=== PATIENT | male | born 1945 | race Two or more races ===

== ENCOUNTER 2017-03-07 07:59 | Inpatient (IN) | payer MEDICARE, OTHER ==
[~2017-03-07] VITALS: Ht 172.7 cm; Wt 67.1 kg
[~2017-03-07 07:59] MED LIST: ACET325T9 PO; ACET325T9 RC; ACID1TAB14 PO; ALPR0.254 PO; ASPI-482 PO; ASPI81TA44 PO; BISA10SU55 RC; CARB1TAB4 PO; CITA20TA5 PO; COLE1TAB PO; GUAI-297 PO; INSU100V10 IJ; INSU100V10 SQ; INSU100V13 SQ; LACT1CAP2 PO; LISI-334 PO; MECL25TA3 PO; NA P133E2 RC; NPH,100V4 SQ; SULF1TAB3 PO
[2017-03-07] MEDS ORDERED: IV NORMAL SALINE 1000ML BAG 1,000 ML IV ONE ×3 (08:15→10:00)
--- NOTE | 2017-03-07 08:36 | RAD ---
Indication: Fever and weakness. Hyperglycemia and vomiting. Technique: Upright portable chest radiograph was obtained. Comparison is from January 19, 2016. Findings: The lungs are clear. The cardiopulmonary silhouette is within normal limits. The bony structures are intact. Leads overlie the patient. Impression: No active pulmonary disease.
[2017-03-07 08:38] LABS: BASO % 0 % (0-3); EOS % 0 % (0-3); HEMATOCRIT 37.3 % (39.0-53.0); HEMOGLOBIN 12.1 g/dL (13.0-17.5); LYMPH # 0.6 x10^3/uL (1.0-4.8); LYMPH % 7 % (24-48); MEAN CORPUSCULAR HEMOGLOBIN 28 pg (25-35); MEAN CORPUSCULAR HGB CONC 32 g/dL (31-37); MEAN CORPUSCULAR VOLUME 88 fL (79-100); MONO % 11 % (0-9); NEUT % 82 % (31-73); PLATELET COUNT 397 x10^3/uL (140-400); RED BLOOD COUNT 4.26 x10^6/uL (4.30-5.70); RED CELL DISTRIBUTION WIDTH 15.6 % (11.5-14.5); WHITE BLOOD COUNT 8.2 x10^3/uL (4.0-11.0)
--- NOTE | 2017-03-07 08:43 | PHYS DOC ---
Past Medical History Past Medical History: Anxiety, Depression, Diabetes-Type I, Diabetes-Type II, Hypertension, UTI, Other Additional Past Medical Histor: encephalopathy, weakness, frequent falls Past Surgical History: No Surgical History Alcohol Use: None Drug Use: None Adult General Chief Complaint Chief Complaint: HYPERGLYCEMIA HPI HPI Patient is a 72 year old male brought in by EMS for evaluation of increased weakness fatigue along with hyperglycemia and hypotension. Patient is usually hypertensive per halfway staff that he has been 80 systolic and has been decompensating over the past 3-4 days. Patient's blood sugar was undetectable this morning but was given 14 units of NovoLog and now his blood sugar is 361 per EMS. Patient denies any definitive areas of pain and he denies any shortness of breath diaphoresis or diarrhea. He says that he has some nonbilious nonbloody vomiting. He is in no obvious distress with improved vital signs his blood pressure is now 110 systolic with a heart rate of 100. Of note he just started taking Cipro for prostatitis. Review of Systems Review of Systems Constitutional: Denies fever or chills [] Eyes: Denies change in visual acuity, redness, or eye pain [] HENT: Denies nasal congestion or sore throat [] Respiratory: Denies cough or shortness of breath [] Cardiovascular: No additional information not addressed in HPI [] GI: Denies abdominal pain. + nausea, vomiting. No bloody stools or diarrhea [] : Denies dysuria or hematuria [] Musculoskeletal: Denies back pain or joint pain [] Integument: Denies rash or skin lesions [] Neurologic: Denies headache, focal weakness or sensory changes [] Current Medications Current Medications Current Medications Medications (Trade) Dose Ordered Sig/Bryson Start Time Stop Time Status Last Admin Dose Admin Ceftriaxone Sodium 2 gm/ Sodium Chloride 100 ml @ 200 mls/hr 1X STAT 03/07/17 09:07 03/07/17 09:36 DC 03/07/17 09:55 200 MLS/HR Sodium Chloride 1,000 ml @ 1,000 mls/hr 1X ONCE 03/07/17 08:15 03/07/17 09:14 DC 03/07/17 09:01 1,000 MLS/HR Allergies Allergies Allergies Coded Allergies Type Severity Reaction Last Updated Verified Penicillins Allergy Severe 01/23/16 Yes levofloxacin Allergy Intermediate 01/23/16 Yes Physical Exam Physical Exam Constitutional: Well developed, well nourished, no acute distress, non-toxic appearance. [] HENT: Normocephalic, atraumatic, bilateral external ears normal, oropharynx moist, no oral exudates, nose normal. [] Eyes: PERRLA, EOMI, conjunctiva normal, no discharge. [] Neck: Normal range of motion, no tenderness, supple, no stridor. [] Cardiovascular:Heart rate regular rhythm, no murmur [] Lungs & Thorax: Bilateral breath sounds clear to auscultation [] Abdomen: Bowel sounds normal, soft, no tenderness, no masses, no pulsatile masses. [] Skin: Warm, dry, no erythema, no rash. [] Back: No tenderness, no CVA tenderness. [] Extremities: No tenderness, no cyanosis, no clubbing, ROM intact, no edema. [] Neurologic: Alert and oriented X 3, normal motor function, normal sensory function, no focal deficits noted. [] Current Patient Data Vital Signs Vital Signs Date Time Temp Pulse Resp B/P (MAP) Pulse Ox O2 Delivery O2 Flow Rate FiO2 03/07/17 09:00 88 15 115/58 (77) 98 03/07/17 08:08 98.2 Room Air 98.2 Lab Values Laboratory Tests Test 03/07/17 08:07 03/07/17 08:10 Glucose (Fingerstick) 422 mg/dL (70-99) H White Blood Count 8.2 x10^3/uL (4.0-11.0) Red Blood Count 4.26 x10^6/uL (4.30-5.70) L Hemoglobin 12.1 g/dL (13.0-17.5) L Hematocrit 37.3 % (39.0-53.0) L Mean Corpuscular Volume 88 fL (79-100) Mean Corpuscular Hemoglobin 28 pg (25-35) Mean Corpuscular Hemoglobin Concent 32 g/dL (31-37) Red Cell Distribution Width 15.6 % (11.5-14.5) H Platelet Count 397 x10^3/uL (140-400) Neutrophils (%) (Auto) 82 % (31-73) H Lymphocytes (%) (Auto) 7 % (24-48) L Monocytes (%) (Auto) 11 % (0-9) H Eosinophils (%) (Auto) 0 % (0-3) Basophils (%) (Auto) 0 % (0-3) Neutrophils # (Auto) 6.7 x10^3uL (1.8-7.7) Lymphocytes # (Auto) 0.6 x10^3/uL (1.0-4.8) L Monocytes # (Auto) 0.9 x10^3/uL (0.0-1.1) Eosinophils # (Auto) 0.0 x10^3/uL (0.0-0.7) Basophils # (Auto) 0.0 x10^3/uL (0.0-0.2) Prothrombin Time 13.5 SEC (11.7-14.0) Prothrombin Time INR 1.1 (0.8-1.1) PTT 28 SEC (24-38) Lactic Acid Level 3.7 mmol/L (0.4-2.0) H Troponin I Quantitative < 0.017 ng/mL (0.000-0.055) OX-Fjn-A-Type Natriuretic Peptide 522 pg/mL (0-124) H Thyroid Stimulating Hormone (TSH) 2.612 uIU/mL (0.358-3.74) Laboratory Tests 03/07/17 08:10 EKG EKG Sinus rhythm at 99 beats per minutes with normal axis no obvious ST elevation or depression with normal T waves. Radiology/Procedures Radiology/Procedures Indication: Fever and weakness. Hyperglycemia and vomiting. Technique: Upright portable chest radiograph was obtained. Comparison is from January 19, 2016. Findings: The lungs are clear. The cardiopulmonary silhouette is within normal limits. The bony structures are intact. Leads overlie the patient. Impression: No active pulmonary disease. DICTATED and SIGNED BY: TERESA ARBOLEDA MD DATE: 03/07/17 0833 Course & Med Decision Making Course & Med Decision Making Patient with nonspecific hypotension hyperglycemia likely related to dehydration. We'll check labs and EKG treat symptoms and then reassess. Patient with acute renal failure likely from dehydration and hyperglycemia. Patient's blood pressure improved with IV fluids here. His potassium is elevated but there is no signs of cardiac involvement as his QRS and T waves appear normal on the monitor. Patient will likely improve with IV fluids and insulin. Spoke to Dr. Lee and he said that he is a brittle diabetic so do not start a insulin drip and just use insulin boluses for now. Patient admitted in guarded condition to telemetry floor. Dragon Disclaimer Dragon Disclaimer This electronic medical record was generated, in whole or in part, using a voice recognition dictation system. Departure Departure Impression: Primary Impression: ARF (acute renal failure) Additional Impressions: Hyperkalemia Lactic acid acidosis Hyperglycemia Hypotension Disposition: ADMITTED INPATIENT Admitting Physician: Modesto Parker Condition: IMPROVED Referrals: MODESTO PARKER MD (PCP) Problem Qualifiers Primary Impression: ARF (acute renal failure) Acute renal failure type: unspecified Qualified Codes: N17.9 - Acute kidney failure, unspecified KAM SANDHU DO March 07, 2017 08:43
[2017-03-07 08:53] LABS: INR 1.1 (0.8-1.1); PROTHROMBIN TIME PATIENT 13.5 SEC (11.7-14.0)
[2017-03-07 09:42] LABS: ALBUMIN 4.1 g/dL (3.4-5.0); ALBUMIN/GLOBULIN RATIO 0.9 (1.0-1.7); CREATININE 2.7 mg/dL (0.7-1.3); GFR 23.3; TOTAL BILIRUBIN 0.6 mg/dL (0.2-1.0); TOTAL PROTEIN 8.8 g/dL (6.4-8.2)
[2017-03-07 09:43] LABS: POTASSIUM 6.1 mmol/L (3.5-5.1)
--- NOTE | 2017-03-07 09:58 | ACF ---
Admission Forms Criteria DIABETES Clinical Indications for Admission to Inpatient Care (Place 'X' for any and all applicable criteria): Admission is indicated by presence of ALL (if I & II) or ANY ONE (if III or IV) of the following (1)(2)(3)(4): [ ]I. Diabetes is uncontrolled as indicated by ANY ONE of the following: [ ]a) Diabetic ketoacidosis as indicated by ALL of the following (8): [ ]i) Hyperglycemia (eg, plasma glucose greater than 200 mg/ dL (11.1 mmol/L)) [ ]ii) Acidosis (eg, arterial pH less than 7.30, serum bicarbonate level less than 15 mEq/L (mmol/L)) [ ]iii) Moderate ketonuria or ketonemia [ ]b) Hyperglycemic hyperosmolar state as indicated by ALL of the following(9)(10): [ ]i) Neurologic dysfunction (eg, stupor, coma, hemiparesis , seizure)(13) [ ]ii) Plasma glucose greater than 600 mg/dL (33.3 mmol/L) [ ]iii) Serum osmolality greater than 320 mOsm/kg (mmol/kg) [ ]c) Severe signs or symptoms secondary to hyperglycemia indicated by ANY ONE of the following: [ ]i) Altered mental status(10) [ ]ii) Significant hypovolemia or dehydration [ ]iii) Intractable nausea or vomiting [ ]iv) Unexplained fever or severe infection [ ]v) Severe electrolyte abnormality (eg, hypokalemia, hyperkalemia, hypernatremia) [ ]II. Management at other levels of care (Also use Diabetes: Observation Care as appropriate) is not feasible because of ANY ONE of the following: [ ]a) Condition was not adequately corrected with treatment at other levels of care. [ ]b) Treatment at other levels of care is not appropriate because of condition severity (eg, hyperosmolar coma). [ ]III. Contraindications and/or Inappropriate clinical situations for Observational Care in patients with Diabetes, when ANY ONE of the following is required: [ ]a) Patient require specific diagnostic workup or therapeutic intervention 22 [ ]b) Patient with abnormal vital signs or altered mental status 23 [ ]IV. General contraindications and/or Inappropriate clinical situations for Observational Care in patients with Diabetes, when ANY ONE of the following is required: [ ]a) Prediction of prolongation of LOS based on ANY ONE of the following may be considered as a contraindication for observational care 2, 3, 4, 5, 6, 7, 8, 9, 10, 11 [ ]i) Age > 65 yrs. [ ]ii) Patient arriving by ambulance [ ]iii) Patient with high acuity [ ]iv) Patient requiring vital sign monitoring [ ]v) Patient on IV medication [ ]b) Systolic blood pressures 180mmHg 3,12 [ ]c) Patient with altered mental status including delirium and other alteration of consciousness, (3) [ ]d) Patient whose discharge disposition will be to a detention home or rehabilitation home should not be managed in Emergency Department Observation Unit. CMS rule requires 3 days hospital stay before such placement.3,13 [ ]e) Patient with failure to thrive due to broad array of etiologies 3,16,17 [ ]f) Inability to ambulate 3,14 Extended stay beyond goal length of stay may be needed for(3)(20): [ ]a) Treatment of precipitating causes [ ]b) Development of hypoglycemia [ ]c) Complications of treatment [ ]d) Complications of decompensated diabetes (eg, acute gastric dilatation, persistent metabolic or neurologic derangement) [ ]e) Active Comorbidities [ ]f) Older patients( 65 years or older) The original [employer] content created by [employer] has been revised. The portions of the content which have been revised are identified through the use of italic text or in bold,and [email or web address] has neither reviewed nor approved the modified material. All other unmodified content is copyright [employer]. Please see references footnoted in the original [employer] edition 2016 DANIELE GUERRA March 07, 2017 09:58
[2017-03-07] MEDS ORDERED: ONDANSETRON PF 4 MG/2 ML VIAL. IV PRN (10:00)
[2017-03-07] MEDS ORDERED: INSULIN REGULAR 100 UNIT/ML 10ML VIAL. IV PRN (10:15)
[2017-03-07 10:58] VITALS: BP 146/61
--- NOTE | 2017-03-07 12:44 | PDOC ---
OBJECTIVE Vital Signs Vital Signs Date Time Temp Pulse Resp B/P (MAP) Pulse Ox O2 Delivery O2 Flow Rate FiO2 03/07/17 10:58 98.0 96 20 146/61 (89) 98 Room Air 98.0 03/07/17 09:30 88 18 148/65 (92) 98 03/07/17 09:00 88 15 115/58 (77) 98 03/07/17 08:30 94 17 110/62 (78) 100 03/07/17 08:08 98.2 99 21 119/67 (84) 100 Room Air 98.2 ASSESSMENT/PLAN Assessment/Plan 524451 H&P dictated Problems: COMMENT Lab Laboratory Tests Test 03/07/17 08:07 03/07/17 08:10 03/07/17 09:20 03/07/17 10:12 Glucose (Fingerstick) 422 mg/dL (70-99) 319 mg/dL (70-99) White Blood Count 8.2 x10^3/uL (4.0-11.0) Red Blood Count 4.26 x10^6/uL (4.30-5.70) Hemoglobin 12.1 g/dL (13.0-17.5) Hematocrit 37.3 % (39.0-53.0) Mean Corpuscular Volume 88 fL (79-100) Mean Corpuscular Hemoglobin 28 pg (25-35) Mean Corpuscular Hemoglobin Concent 32 g/dL (31-37) Red Cell Distribution Width 15.6 % (11.5-14.5) Platelet Count 397 x10^3/uL (140-400) Neutrophils (%) (Auto) 82 % (31-73) Lymphocytes (%) (Auto) 7 % (24-48) Monocytes (%) (Auto) 11 % (0-9) Eosinophils (%) (Auto) 0 % (0-3) Basophils (%) (Auto) 0 % (0-3) Neutrophils # (Auto) 6.7 x10^3uL (1.8-7.7) Lymphocytes # (Auto) 0.6 x10^3/uL (1.0-4.8) Monocytes # (Auto) 0.9 x10^3/uL (0.0-1.1) Eosinophils # (Auto) 0.0 x10^3/uL (0.0-0.7) Basophils # (Auto) 0.0 x10^3/uL (0.0-0.2) Prothrombin Time 13.5 SEC (11.7-14.0) Prothromb Time International Ratio 1.1 (0.8-1.1) Activated Partial Thromboplast Time 28 SEC (24-38) Lactic Acid Level 3.7 mmol/L (0.4-2.0) Troponin I Quantitative < 0.017 ng/mL (0.000-0.055) WJ-Zbi-M-Type Natriuretic Peptide 522 pg/mL (0-124) Thyroid Stimulating Hormone (TSH) 2.612 uIU/mL (0.358-3.74) Sodium Level 140 mmol/L (136-145) Potassium Level 6.1 mmol/L (3.5-5.1) Chloride Level 103 mmol/L (98-107) Carbon Dioxide Level 21 mmol/L (21-32) Anion Gap 16 (6-14) Blood Urea Nitrogen 68 mg/dL (8-26) Creatinine 2.7 mg/dL (0.7-1.3) Estimated GFR (Cockcroft-Gault) 23.3 BUN/Creatinine Ratio 25 (6-20) Glucose Level 397 mg/dL (70-99) Calcium Level 11.0 mg/dL (8.5-10.1) Magnesium Level 3.0 mg/dL (1.8-2.4) Total Bilirubin 0.6 mg/dL (0.2-1.0) Aspartate Amino Transf (AST/SGOT) 18 U/L (15-37) Alanine Aminotransferase (ALT/SGPT) 11 U/L (16-63) Alkaline Phosphatase 144 U/L (46-116) Creatine Kinase 90 U/L (39-308) Total Protein 8.8 g/dL (6.4-8.2) Albumin 4.1 g/dL (3.4-5.0) Albumin/Globulin Ratio 0.9 (1.0-1.7) Lipase 81 U/L (73-393) Test 03/07/17 11:55 03/07/17 12:14 Lactic Acid Level 1.3 mmol/L (0.4-2.0) Glucose (Fingerstick) 272 mg/dL (70-99) ALDA MARIE MD March 07, 2017 12:44
[2017-03-07] MEDS ORDERED: DEXTROSE 50% 25 GM / 50ML DISP.SYRIN. IV PRN (12:45)
[2017-03-07] MEDS: SODIUM BICARBONATE VIAL 50 MEQ in IV 1/2 NORMAL SALINE 1,000 ML IV SCH ×2 (12:45→21:05)
--- NOTE | 2017-03-07 14:41 | EKG ---
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
--- NOTE | 2017-03-07 14:50 | PREOP HP ---
DATE OF SERVICE: LOCATION: He is admitted to room 548. HISTORY OF PRESENT ILLNESS: The patient is a 72-year-old gentleman who was brought by the paramedics to the Emergency Room due to evaluation of increased weakness, fatigue and hypoglycemia and hypotension. The patient usually does have hypertension, but he has not been feeling good and he has been running low blood pressure, very weak and fatigued and started having low blood sugar. Upon his presentation to the Emergency Room, he denies having shortness of breath, chest pain, diarrhea, nausea or vomiting, but does have a poor appetite and fatigue. He has not been drinking enough water. He was evaluated in the Emergency Room and was found to have an acute renal failure. He is not aware of previous history of chronic kidney disease. He apparently recently was diagnosed with prostatitis and has started taking Cipro. PAST MEDICAL AND SURGICAL HISTORY: Significant for Parkinson disease, hypertension, diabetes mellitus, anemia, glaucoma, previous history of cataract extraction, tonsillectomy, adenoidectomy and osteoarthritis. He does use a walker normally to be enabled to be walking. FAMILY HISTORY: Positive for hypertension. SOCIAL HISTORY: He does not smoke or drink alcohol. REVIEW OF SYSTEMS: CONSTITUTIONAL: Denies fever or chills, but does have generalized weakness. EYES: Denies visual changes. HENT: Denies nasal congestion or sore throat. RESPIRATORY: Denies cough or shortness of breath. CARDIOVASCULAR: Denies chest pain. GASTROINTESTINAL: Denies abdominal pain. He does have nausea. He has had decreased appetite. No bloody stool and/or diarrhea. GENITOURINARY: He does have urinary frequency. MUSCULOSKELETAL: He does have chronic arthritis pain. NEUROLOGIC: Denies headache. No focal weakness. PHYSICAL EXAMINATION: GENERAL: He is alert and oriented and cooperative. HEENT: Tympanic membranes clear. Pharynx is clear. Mucous membranes dry. NECK: Supple, with no JVD. LUNGS: Fairly clear to auscultation. HEART: Regular rate and rhythm. ABDOMEN: Soft, nontender, no organomegaly, no masses, no bruits, no ascites. EXTREMITIES: No edema, clubbing or cyanosis. NEUROLOGICAL: He moves all his extremities without difficulty. IMPRESSION: 1. Acute renal failure. 2. Hyperkalemia. 3. Lactic acidosis. 4. Hyperglycemia and diabetes mellitus. 5. Hypotension due to dehydration. 6. Recent urinary tract infection/prostatitis. PLAN: The patient was admitted. We will hold his blood pressure medications, hydrate, treat hyperkalemia, renal consult and renal ultrasound and monitor blood sugar. ALDA MARIE MD DR: DORIS/leatha JOB#: [id number] / [id number]
[2017-03-07 14:53] VITALS: BP 154/74
--- NOTE | 2017-03-07 15:14 | RAD ---
Indication: Acute renal failure. Technique: Renal ultrasound was performed. Comparison is from January 19, 2016. Findings: These kidney measures about 10 cm in length and is without hydronephrosis or mass. Renal cortical echogenicity and thickness is within normal limits. Bladder is moderately distended and grossly unremarkable. Impression: Normal renal ultrasound.
[2017-03-07] MEDS: CARBIDOPA/LEVODOPA CR 25/100MG TABLET.SA. PO SCH ×2 (15:43→21:06)
[2017-03-07] MEDS: ALPRAZolam 0.25 MG TABLET PO SCH ×2 (15:43→21:06)
[2017-03-07] MEDS: INSULIN ASPART 300 UNITS/3 ML INSULN.PEN SQ SCH (17:26)
[2017-03-07] MEDS: COLESTIPOL HCL 1 GM TABLET PO SCH (18:44)
[2017-03-07 19:00] VITALS: BP 133/58
[2017-03-07] MEDS: INSULIN DETEMIR 300 UNITS/3 ML INSULN.PEN. SQ SCH (21:10)
[2017-03-07 22:26] LABS: BILIRUBIN,URINE NEGATIVE (NEG); GLUCOSE,URINE >=1000 mg/dL (NEG); NITRITE,URINE NEGATIVE (NEG); PH,URINE 5.5; PROTEIN,URINE NEGATIVE (NEG-TRACE); UROBILINOGEN,URINE 0.2 mg/dL (0.2 mg/dL)
[2017-03-07 22:39] LABS: BACTERIA,URINE FEW /HPF (0-FEW); RBC,URINE 0 /HPF (0-2); SQUAMOUS EPITHELIAL CELL,UR FEW /LPF
[2017-03-07 22:40] LABS: YEAST,URINE PRESENT /HPF
[2017-03-07 23:00] VITALS: BP 146/76
[2017-03-08 03:00] VITALS: BP 133/67
[2017-03-08] MEDS ORDERED: ACETAMINOPHEN 325 MG TABLET. PO PRN (04:00)
[2017-03-08] MEDS: SODIUM BICARBONATE VIAL 50 MEQ in IV 1/2 NORMAL SALINE 1,000 ML IV SCH ×3 (04:04→23:25)
[2017-03-08 04:05] LABS: BASO % 1 % (0-3); EOS % 1 % (0-3); HEMATOCRIT 29.9 % (39.0-53.0); HEMOGLOBIN 9.9 g/dL (13.0-17.5); LYMPH # 1.8 x10^3/uL (1.0-4.8); LYMPH % 24 % (24-48); MEAN CORPUSCULAR HEMOGLOBIN 29 pg (25-35); MEAN CORPUSCULAR HGB CONC 33 g/dL (31-37); MEAN CORPUSCULAR VOLUME 86 fL (79-100); MONO % 8 % (0-9); NEUT % 66 % (31-73); PLATELET COUNT 279 x10^3/uL (140-400); RED BLOOD COUNT 3.47 x10^6/uL (4.30-5.70); RED CELL DISTRIBUTION WIDTH 15.2 % (11.5-14.5); WHITE BLOOD COUNT 7.5 x10^3/uL (4.0-11.0)
[2017-03-08 04:40] LABS: ALBUMIN 3.1 g/dL (3.4-5.0); ALK PHOS 101 U/L (46-116); ANION GAP 10 (6-14); AST (SGOT) 20 U/L (15-37); BLOOD UREA NITROGEN 31 mg/dL (8-26); BUN/CREATININE RATIO 26 (6-20); CALCIUM 8.8 mg/dL (8.5-10.1); CARBON DIOXIDE 25 mmol/L (21-32); CHLORIDE 109 mmol/L (98-107); CREATININE 1.2 mg/dL (0.7-1.3); GFR 59.3; POTASSIUM 3.7 mmol/L (3.5-5.1); SODIUM 144 mmol/L (136-145); TOTAL BILIRUBIN 0.5 mg/dL (0.2-1.0); TOTAL PROTEIN 6.2 g/dL (6.4-8.2)
[2017-03-08 04:58] LABS: GLUCOSE 40 mg/dL (70-99)
[2017-03-08 04:59] LABS: ALT (SGPT) < 6 U/L (16-63)
--- NOTE | 2017-03-08 05:19 | ACF ---
Admission Forms Criteria RENAL FAILURE, ACUTE Clinical Indications for Admission to Inpatient Care ( Place 'X' for any and all applicable criteria): Admission is indicated for ALL (if I & II) or III of the following [A](2)(3)(4)( 5)(6)(7): [ ]I. Acute renal failure as indicated by ANY ONE of the following: [ ]a) A 3-fold rise in serum creatinine from baseline [ ]b) Serum creatinine greater than 4 mg/dL (354 micromoles/L) with an acute rise greater than 0.5 mg/dL (44.2 micromoles/L) [ ]c) Reduction of more than 75% in estimated glomerular filtration rate from baseline [ ]d) Estimated glomerular filtration rate less than 35 mL/min/1.73m2 (0.59mL/sec/1.73m2)in a child up to 18 years of age [ ]e) Anuria indicated by ALL of the following: [ ]i) Adequate volume status [ ]ii) Cessation of urine output indicated by ANY ONE of the following: [ ]1) Urine output less than 0.3 mL/kg/hr for 24 hours [ ]2) Anuria (urine output less than 0.1 mL/kg/ hr) for 12 hours [ ] II. Renal failure cannot be managed in an outpatient setting or observational care setting as indicating by ANY ONE of the following: [ ]a) Altered mental status that is severe or persistent [ ]b) Volume overload or Respiratory distress (eg, clinically significant pulmonary edema) that is severe or persistent [ ]c) Cardiac arrhythmias of immediate concern [ ]d) Hemodynamic instability [ ]e) Clinically significant electrolyte abnormality that requires inpatient care (eg, hyperkalemia with severe ECG findings)[B] [ ]f) Clinically significant metabolic abnormality (eg, acidosis) that is severe or persistent [ ]g) Acute treatment of renal failure (eg, renal replacement therapy) not feasible or appropriate in observational care setting [ ]h) Clinical situation too unstable or uncertain (eg, inadequate urine output, ongoing decline in renal function, etiology unclear) [ ]i) Necessary support and caregiver ability to comply with outpatient treatment cannot be arranged in observation care timeframe (eg, within 24 hours) [ ]j) Other significant finding or clinical condition judged not to be within scope of observation care [X]III.General contraindications and/or Inappropriate clinical situations for Observational Care in patients with Acute Renal Failure, when ANY ONE of the following is required: [X]a) Prediction of prolongation of LOS based on ANY ONE of the following may be considered as a contraindication for observational care 2, 3, 4, 5, 6, 7, 8 , 9, 10, 11 [ ]i) Age > 65 yrs. [ ]ii) Patient arriving by ambulance [ ]iii) Patient with high acuity [ ]iv) Patient requiring vital sign monitoring [X]v) Patient on IV medication [ ]b) Systolic blood pressures 180mmHg 3,12 [ ]c) Patient with altered mental status including delirium and other alteration of consciousness, (3) [ ]d) Patient whose discharge disposition will be to a correction home or rehabilitation home should not be managed in Emergency Department Observation Unit. CMS rule requires 3 days hospital stay before such placement.3,13 [ ]e) Patient with failure to thrive due to broad array of etiologies 3, 16,17 [ ]f) Inability to ambulate 3,14 Extended stay beyond goal length of stay may be needed for(13) [ ]a) Continuing uremic complications [ ]b) Care for comorbidities [ ]c) acute renal failure [ ]d) Need for dialysis The original [employer] content created by [employer] has been revised. The portions of the content which have been revised are identified through the use of italic text or in bold, and [facility] has neither reviewed nor approved the modified material. All other unmodified content is copyright [employer]. Please see references footnoted in the original [employer] [employer] edition 2016 Admission Criteria Met?: Yes DANIELE GUERRA March 08, 2017 05:19
[2017-03-08] MEDS: COLESTIPOL HCL 1 GM TABLET PO SCH ×2 (05:46→17:27)
[2017-03-08 07:00] VITALS: BP 160/79
[2017-03-08] MEDS: CARBIDOPA/LEVODOPA CR 25/100MG TABLET.SA. PO SCH ×3 (08:14→20:17)
[2017-03-08] MEDS: LACTOBACILLUS ACIDOPH & BULGAR 1 TABLET. PO SCH (08:15)
[2017-03-08] MEDS: ASPIRIN CHEWABLE 81 MG TABLET. PO SCH (08:15)
[2017-03-08] MEDS: ALPRAZolam 0.25 MG TABLET PO SCH ×3 (08:15→20:17)
[2017-03-08] MEDS: CITALOPRAM 20 MG TABLET. PO SCH (08:16)
[2017-03-08] MEDS: INSULIN ASPART 300 UNITS/3 ML INSULN.PEN SQ SCH ×3 (08:22→17:31)
[2017-03-08 10:39] VITALS: BP 133/65
--- NOTE | 2017-03-08 11:26 | PDOC2 ---
CONSULT Date of Consult Date of Consult DATE: 03/08/17 TIME: 11:18 Reason for Consult Reason for Consult: TAL Referring Physician Referring Physician: APPL Identification/Chief Complaint Chief Complaint WEAKNESS AND CONFUSION Source Source: Chart review History of Present Illness Reason for Visit: THIS IS A 72 YR OLD ADMITTED WITH CONFUSION AND WEAKNESS. OP LABS APPARENTLY SHOWED LOW BG AND HE RECENTLY HAD AN UTI. WHILE HERE HIS BS IS HIGH ENOUGH TO BE SPILLING SUGAR INTO HIS URINE. KETONE WERE TRACE POSITIVE WITH MILD AG ACIDOSIS. ALL OF THESE PARAMETERS HAVE IMPROVED Past Medical History Past Medical History GLAUCOMA, CATARACT REMOVAL AND IOL PLACEMENT Cardiovascular: HTN GI: Constipation Heme/Onc: Anemia NOS Musculoskeletal: Osteoarthritis Endocrine: Diabetes Past Surgical History Past Surgical History: Tonsillectomy Family History Family History: No Significant Social History No ALCOHOL: none Drugs: None Lives: with Family Current Problem List Problem List Problems Medical Problems: (1) ARF (acute renal failure) Status: Acute (2) Hyperglycemia Status: Acute (3) Hyperkalemia Status: Acute (4) Hypotension Status: Acute (5) Lactic acid acidosis Status: Acute Current Medications Current Medications Current Medications Sodium Chloride 1,000 ml @ 1,000 mls/hr 1X ONCE IV Last administered on 09:01; Start 03/07/17 at 08:15; Stop 03/07/17 at 09:14; Status DC Ceftriaxone Sodium 2 gm/ Sodium Chloride 100 ml @ 200 mls/hr 1X STAT IV Last administered on 03/07/17 09:55; Start 03/07/17 at 09:07; Stop 03/07/17 at 09:36 ; Status DC Sodium Chloride 1,000 ml @ 1,000 mls/hr 1X ONCE IV Last administered on 12:08; Start 03/07/17 at 10:00; Stop 03/07/17 at 10:59; Status DC Ondansetron HCl (Zofran) 4 mg PRN Q8HRS PRN IV NAUSEA/VOMITING; Start 03/07/17 at 10:00; Stop 03/08/17 at 09:59; Status DC Sodium Chloride 1,000 ml @ 125 mls/hr 1X ONCE IV Last administered on 13:15; Start 03/07/17 at 10:00; Stop 03/07/17 at 17:59; Status DC Insulin Human Regular (NovoLIN R VIAL) 6 unit PRN Q1HR PRN IV BS >200; Start at 10:15; Stop 03/07/17 at 12:43; Status DC Alprazolam (Xanax) 0.25 mg TID PO Last administered on 03/08/17 08:15; Start 03/07/17 at 14:00 Aspirin (Children'S Aspirin) 81 mg DAILYWBKFT PO Last administered on 08:15; Start 03/08/17 at 08:00 Carbidopa/Levodopa (Sinemet Cr) 1 tab.sa TID PO Last administered on 03/08/17 08:14; Start 03/07/17 at 14:00 Citalopram Hydrobromide (CeleXA) 20 mg DAILY PO Last administered on 03/08/17 08:16; Start 03/08/17 at 09:00 Colestipol HCl (Colestid) 1 gm [id number] PO Last administered on 03/08/17 05:46; Start 03/07/17 at 18:00 Insulin Detemir (Levemir) 10 units QHS SQ Last administered on 03/07/17 21:10 ; Start 03/07/17 at 21:00 Lactobacillus Acidophilus (Bacid, Wendie-Bid) 1 tab DAILY PO Last administered on 03/08/17 08:15; Start 03/08/17 at 09:00 Insulin Aspart (NovoLOG) 0-5 UNITS TIDWMEALS SQ Last administered on 03/08/17 08:22; Start 03/07/17 at 17:00 Dextrose (Dextrose 50%-Water Syringe) 12.5 gm PRN Q15MIN PRN IV SEE COMMENTS; Start 03/07/17 at 12:45 Sodium Bicarbonate 50 meq/Sodium Chloride 1,050 ml @ 125 mls/hr Q8H24M IV Last administered on 03/08/17 04:04; Start 03/07/17 at 12:45 Acetaminophen (Tylenol) 650 mg PRN Q6HRS PRN PO MILD PAIN / TEMP Last administered on 03/08/17 04:02; Start 03/08/17 at 04:00 Active Scripts Active Sulfamethoxazole-Tmp Ds Tablet (Sulfamethoxazole/Trimethoprim) 1 Each Tablet 1 Tab PO BID 5 Days Lisinopril 20 Mg Tablet 20 Mg PO DAILY 30 Days Colestid (Colestipol Hcl) 1 Gm Tablet 1 Gm PO [id number] 14 Days Children's Aspirin (Aspirin) 81 Mg Tab.chew 81 Mg PO DAILYWBKFT 30 Days Wendie-Bid Caplet (Acidoph/L.bulg/Bif.b/S.thermop) 1 Each Tablet 1 Tab PO DAILY 30 Days Reported Fleet Enema (Na Phos,M-B/Na Phos,Di-Ba) 133 Ml Enema 1 Each RC ONCE PRN Levemir (Insulin Detemir) 100 Unit/1 Ml Vial 10 Unit SQ HS Sinemet Cr 25-100 Tablet (Carbidopa/Levodopa) 1 Each Tablet.er 1 Tab PO TID Novolin R (Insulin Regular, Human) 100 Unit/1 Ml Vial 7 Unit SQ DAILY Novolin R (Insulin Regular, Human) 100 Unit/1 Ml Vial 20 Unit SQ DAILY Meclizine Hcl 25 Mg Tablet 1 Tab PO TID Acidophilus (Lactobacillus Acidophilus) 1 Each Capsule 1 Each PO DAILY Dulcolax (Bisacodyl) 10 Mg Supp.rect 10 Mg RC PRN DAILY PRN Citalopram Hbr (Citalopram Hydrobromide) 20 Mg Tablet 1 Tab PO DAILY Alprazolam 0.25 Mg Tablet 1 Tab PO TID Tylenol (Acetaminophen) 325 Mg Tablet 2 Tab PO PRN Q4HRS PRN Allergies Allergies: Coded Allergies: Penicillins (Verified Allergy, Severe, 01/23/16) levofloxacin (Verified Allergy, Intermediate, 01/23/16) ROS Review of System UNABLE TO OBTAIN Physical Exam General: Alert, Cooperative, No acute distress HEENT: Atraumatic, PERRLA Lungs: Clear to auscultation Heart: Regular rate Abdomen: Normal bowel sounds, Soft, No tenderness Skin: No rashes Neuro: Other (SOMNOLENT) Psych/Mental Status: Other (SOMNOLENT BUT NO ASYMMETRY) Vitals VITALS Vital Signs Date Time Temp Pulse Resp B/P (MAP) Pulse Ox O2 Delivery O2 Flow Rate FiO2 03/08/17 10:39 97.8 74 18 133/65 (87) 97 Room Air 97.8 Labs Labs Laboratory Tests Test 03/07/17 08:07 03/07/17 08:10 03/07/17 09:20 03/07/17 10:12 Glucose (Fingerstick) 422 mg/dL (70-99) 319 mg/dL (70-99) White Blood Count 8.2 x10^3/uL (4.0-11.0) Red Blood Count 4.26 x10^6/uL (4.30-5.70) Hemoglobin 12.1 g/dL (13.0-17.5) Hematocrit 37.3 % (39.0-53.0) Mean Corpuscular Volume 88 fL (79-100) Mean Corpuscular Hemoglobin 28 pg (25-35) Mean Corpuscular Hemoglobin Concent 32 g/dL (31-37) Red Cell Distribution Width 15.6 % (11.5-14.5) Platelet Count 397 x10^3/uL (140-400) Neutrophils (%) (Auto) 82 % (31-73) Lymphocytes (%) (Auto) 7 % (24-48) Monocytes (%) (Auto) 11 % (0-9) Eosinophils (%) (Auto) 0 % (0-3) Basophils (%) (Auto) 0 % (0-3) Neutrophils # (Auto) 6.7 x10^3uL (1.8-7.7) Lymphocytes # (Auto) 0.6 x10^3/uL (1.0-4.8) Monocytes # (Auto) 0.9 x10^3/uL (0.0-1.1) Eosinophils # (Auto) 0.0 x10^3/uL (0.0-0.7) Basophils # (Auto) 0.0 x10^3/uL (0.0-0.2) Prothrombin Time 13.5 SEC (11.7-14.0) Prothromb Time International Ratio 1.1 (0.8-1.1) Activated Partial Thromboplast Time 28 SEC (24-38) Lactic Acid Level 3.7 mmol/L (0.4-2.0) Troponin I Quantitative < 0.017 ng/mL (0.000-0.055) UF-Xkl-R-Type Natriuretic Peptide 522 pg/mL (0-124) Thyroid Stimulating Hormone (TSH) 2.612 uIU/mL (0.358-3.74) Sodium Level 140 mmol/L (136-145) Potassium Level 6.1 mmol/L (3.5-5.1) Chloride Level 103 mmol/L (98-107) Carbon Dioxide Level 21 mmol/L (21-32) Anion Gap 16 (6-14) Blood Urea Nitrogen 68 mg/dL (8-26) Creatinine 2.7 mg/dL (0.7-1.3) Estimated GFR (Cockcroft-Gault) 23.3 BUN/Creatinine Ratio 25 (6-20) Glucose Level 397 mg/dL (70-99) Calcium Level 11.0 mg/dL (8.5-10.1) Magnesium Level 3.0 mg/dL (1.8-2.4) Total Bilirubin 0.6 mg/dL (0.2-1.0) Aspartate Amino Transf (AST/SGOT) 18 U/L (15-37) Alanine Aminotransferase (ALT/SGPT) 11 U/L (16-63) Alkaline Phosphatase 144 U/L (46-116) Creatine Kinase 90 U/L (39-308) Total Protein 8.8 g/dL (6.4-8.2) Albumin 4.1 g/dL (3.4-5.0) Albumin/Globulin Ratio 0.9 (1.0-1.7) Lipase 81 U/L (73-393) Test 03/07/17 11:55 03/07/17 12:14 03/07/17 16:19 03/07/17 19:25 Lactic Acid Level 1.3 mmol/L (0.4-2.0) Glucose (Fingerstick) 272 mg/dL (70-99) 223 mg/dL (70-99) Urine Collection Type Unknown Urine Color Yellow Urine Clarity Clear Urine pH 5.5 Urine Specific [place] 1.025 Urine Protein Negative mg/dL (NEG-TRACE) Urine Glucose (UA) >=1000 mg/dL (NEG) Urine Ketones (Stick) 15 mg/dL (NEG) Urine Blood Negative (NEG) Urine Nitrite Negative (NEG) Urine Bilirubin Negative (NEG) Urine Urobilinogen Dipstick 0.2 mg/dL (0.2 mg/dL) Urine Leukocyte Esterase Negative (NEG) Urine RBC 0 /HPF (0-2) Urine WBC 5-10 /HPF (0-4) Urine Squamous Epithelial Cells Few /LPF Urine Bacteria Few /HPF (0-FEW) Urine Hyaline Casts Few /HPF Urine Mucus Mod /LPF Urine Yeast Present /HPF Test 03/07/17 21:04 03/08/17 03:38 03/08/17 03:50 03/08/17 05:12 Glucose (Fingerstick) 153 mg/dL (70-99) 30 mg/dL (70-99) White Blood Count 7.5 x10^3/uL (4.0-11.0) Red Blood Count 3.47 x10^6/uL (4.30-5.70) Hemoglobin 9.9 g/dL (13.0-17.5) Hematocrit 29.9 % (39.0-53.0) Mean Corpuscular Volume 86 fL (79-100) Mean Corpuscular Hemoglobin 29 pg (25-35) Mean Corpuscular Hemoglobin Concent 33 g/dL (31-37) Red Cell Distribution Width 15.2 % (11.5-14.5) Platelet Count 279 x10^3/uL (140-400) Neutrophils (%) (Auto) 66 % (31-73) Lymphocytes (%) (Auto) 24 % (24-48) Monocytes (%) (Auto) 8 % (0-9) Eosinophils (%) (Auto) 1 % (0-3) Basophils (%) (Auto) 1 % (0-3) Neutrophils # (Auto) 4.9 x10^3uL (1.8-7.7) Lymphocytes # (Auto) 1.8 x10^3/uL (1.0-4.8) Monocytes # (Auto) 0.6 x10^3/uL (0.0-1.1) Eosinophils # (Auto) 0.1 x10^3/uL (0.0-0.7) Basophils # (Auto) 0.0 x10^3/uL (0.0-0.2) Sodium Level 144 mmol/L (136-145) Potassium Level 3.7 mmol/L (3.5-5.1) Chloride Level 109 mmol/L (98-107) Carbon Dioxide Level 25 mmol/L (21-32) Anion Gap 10 (6-14) Blood Urea Nitrogen 31 mg/dL (8-26) Creatinine 1.2 mg/dL (0.7-1.3) Estimated GFR (Cockcroft-Gault) 59.3 BUN/Creatinine Ratio 26 (6-20) Glucose Level 40 mg/dL (70-99) Calcium Level 8.8 mg/dL (8.5-10.1) Total Bilirubin 0.5 mg/dL (0.2-1.0) Aspartate Amino Transf (AST/SGOT) 20 U/L (15-37) Alanine Aminotransferase (ALT/SGPT) < 6 U/L (16-63) Alkaline Phosphatase 101 U/L (46-116) Total Protein 6.2 g/dL (6.4-8.2) Albumin 3.1 g/dL (3.4-5.0) Albumin/Globulin Ratio 1.0 (1.0-1.7) Test 03/08/17 05:38 03/08/17 06:19 03/08/17 06:59 03/08/17 10:09 Glucose (Fingerstick) 30 mg/dL (70-99) 188 mg/dL (70-99) 203 mg/dL (70-99) 175 mg/dL (70-99) Laboratory Tests Test 03/07/17 11:55 03/07/17 12:14 03/07/17 16:19 03/07/17 19:25 Lactic Acid Level 1.3 mmol/L (0.4-2.0) Glucose (Fingerstick) 272 mg/dL (70-99) 223 mg/dL (70-99) Urine Collection Type Unknown Urine Color Yellow Urine Clarity Clear Urine pH 5.5 Urine Specific [place] 1.025 Urine Protein Negative mg/dL (NEG-TRACE) Urine Glucose (UA) >=1000 mg/dL (NEG) Urine Ketones (Stick) 15 mg/dL (NEG) Urine Blood Negative (NEG) Urine Nitrite Negative (NEG) Urine Bilirubin Negative (NEG) Urine Urobilinogen Dipstick 0.2 mg/dL (0.2 mg/dL) Urine Leukocyte Esterase Negative (NEG) Urine RBC 0 /HPF (0-2) Urine WBC 5-10 /HPF (0-4) Urine Squamous Epithelial Cells Few /LPF Urine Bacteria Few /HPF (0-FEW) Urine Hyaline Casts Few /HPF Urine Mucus Mod /LPF Urine Yeast Present /HPF Test 03/07/17 21:04 03/08/17 03:38 03/08/17 03:50 03/08/17 05:12 Glucose (Fingerstick) 153 mg/dL (70-99) 30 mg/dL (70-99) White Blood Count 7.5 x10^3/uL (4.0-11.0) Red Blood Count 3.47 x10^6/uL (4.30-5.70) Hemoglobin 9.9 g/dL (13.0-17.5) Hematocrit 29.9 % (39.0-53.0) Mean Corpuscular Volume 86 fL (79-100) Mean Corpuscular Hemoglobin 29 pg (25-35) Mean Corpuscular Hemoglobin Concent 33 g/dL (31-37) Red Cell Distribution Width 15.2 % (11.5-14.5) Platelet Count 279 x10^3/uL (140-400) Neutrophils (%) (Auto) 66 % (31-73) Lymphocytes (%) (Auto) 24 % (24-48) Monocytes (%) (Auto) 8 % (0-9) Eosinophils (%) (Auto) 1 % (0-3) Basophils (%) (Auto) 1 % (0-3) Neutrophils # (Auto) 4.9 x10^3uL (1.8-7.7) Lymphocytes # (Auto) 1.8 x10^3/uL (1.0-4.8) Monocytes # (Auto) 0.6 x10^3/uL (0.0-1.1) Eosinophils # (Auto) 0.1 x10^3/uL (0.0-0.7) Basophils # (Auto) 0.0 x10^3/uL (0.0-0.2) Sodium Level 144 mmol/L (136-145) Potassium Level 3.7 mmol/L (3.5-5.1) Chloride Level 109 mmol/L (98-107) Carbon Dioxide Level 25 mmol/L (21-32) Anion Gap 10 (6-14) Blood Urea Nitrogen 31 mg/dL (8-26) Creatinine 1.2 mg/dL (0.7-1.3) Estimated GFR (Cockcroft-Gault) 59.3 BUN/Creatinine Ratio 26 (6-20) Glucose Level 40 mg/dL (70-99) Calcium Level 8.8 mg/dL (8.5-10.1) Total Bilirubin 0.5 mg/dL (0.2-1.0) Aspartate Amino Transf (AST/SGOT) 20 U/L (15-37) Alanine Aminotransferase (ALT/SGPT) < 6 U/L (16-63) Alkaline Phosphatase 101 U/L (46-116) Total Protein 6.2 g/dL (6.4-8.2) Albumin 3.1 g/dL (3.4-5.0) Albumin/Globulin Ratio 1.0 (1.0-1.7) Test 03/08/17 05:38 03/08/17 06:19 03/08/17 06:59 03/08/17 10:09 Glucose (Fingerstick) 30 mg/dL (70-99) 188 mg/dL (70-99) 203 mg/dL (70-99) 175 mg/dL (70-99) Assessment/Plan Assessment/Plan IMP TAL-WITH CR OF 2.7 AND NO CKD HYPERCALCEMIA DEHYDRATION HYPERGLYCEMIA PLAN HYDRATION LABS IN AM IF CALCIUM DOES NOT IMPROVE WITH HYDRATION THEN WILL EVALUATE FURTHER CYRUS LINDSEY MD March 08, 2017 11:26
[2017-03-08 14:50] VITALS: BP 135/67
[2017-03-08 19:00] VITALS: BP 157/82
--- NOTE | 2017-03-08 19:13 | PDOC ---
GENERAL General: vss and afebrile. awake and alert and feels much better. chest clear and heart regular. TAL has resolved with creatinine down to 1.2 this am. Hyperkalemia has resolved. Hypoglycemia this am which is not unusual in this very brittle diabetes. continue hydration and see how does with po intake. continue present otherwise. Problems: VITAL SIGNS Vital Signs: Vital Signs Date Time Temp Pulse Resp B/P (MAP) Pulse Ox O2 Delivery O2 Flow Rate FiO2 03/08/17 14:50 97.8 74 18 135/67 (89) 100 Room Air 97.8 I & O I & O Intake and Output 03/08/17 07:00 Intake Total 2990 ml Output Total 575 ml Balance 2415 ml Intake Oral 1540 ml IV Total 950 ml Other 500 ml Output Urine Total 575 ml # Voids 2 # Bowel Movements 1 ALLERGIES Allergies: Allergies Coded Allergies Type Severity Reaction Last Updated Verified Penicillins Allergy Severe 01/23/16 Yes levofloxacin Allergy Intermediate 01/23/16 Yes MEDS Medications: Current Medications Medications (Trade) Dose Ordered Sig/Bryson Start Time Stop Time Status Last Admin Dose Admin Acetaminophen (Tylenol) 650 mg PRN Q6HRS PRN 03/08/17 04:00 03/08/17 04:02 650 MG Alprazolam (Xanax) 0.25 mg TID 03/07/17 14:00 03/08/17 13:51 0.25 MG Aspirin (Children'S Aspirin) 81 mg DAILYWBKFT 03/08/17 08:00 03/08/17 08:15 81 MG Carbidopa/Levodopa (Sinemet Cr) 1 tab.sa TID 03/07/17 14:00 03/08/17 13:51 1 TAB.SA Ceftriaxone Sodium 2 gm/ Sodium Chloride 100 ml @ 200 mls/hr 1X STAT 03/07/17 09:07 03/07/17 09:36 DC 03/07/17 09:55 200 MLS/HR Citalopram Hydrobromide (CeleXA) 20 mg DAILY 03/08/17 09:00 03/08/17 08:16 20 MG Colestipol HCl (Colestid) 1 gm [id number] 03/07/17 18:00 03/08/17 17:27 1 GM Dextrose (Dextrose 50%-Water Syringe) 12.5 gm PRN Q15MIN PRN 03/07/17 12:45 Insulin Aspart (NovoLOG) 0-5 UNITS TIDWMEALS 03/07/17 17:00 03/08/17 17:31 4 UNITS Insulin Detemir (Levemir) 10 units QHS 03/07/17 21:00 03/07/17 21:10 10 UNITS Insulin Human Regular (NovoLIN R VIAL) 6 unit PRN Q1HR PRN 03/07/17 10:15 03/07/17 12:43 DC Lactobacillus Acidophilus (Bacid, Wendie-Bid) 1 tab DAILY 03/08/17 09:00 03/08/17 08:15 1 TAB Ondansetron HCl (Zofran) 4 mg PRN Q8HRS PRN 03/07/17 10:00 03/08/17 09:59 DC Sodium Bicarbonate 50 meq/Sodium Chloride 1,050 ml @ 125 mls/hr Q8H24M 03/07/17 12:45 03/08/17 13:52 125 MLS/HR Sodium Chloride 1,000 ml @ 125 mls/hr 1X ONCE 03/07/17 10:00 03/07/17 17:59 DC 03/07/17 13:15 125 MLS/HR LAB Lab: Laboratory Tests Test 03/07/17 19:25 03/07/17 21:04 03/08/17 03:38 03/08/17 03:50 Urine Collection Type Unknown Urine Color Yellow Urine Clarity Clear Urine pH 5.5 Urine Specific [place] 1.025 Urine Protein Negative mg/dL (NEG-TRACE) Urine Glucose (UA) >=1000 mg/dL (NEG) Urine Ketones (Stick) 15 mg/dL (NEG) Urine Blood Negative (NEG) Urine Nitrite Negative (NEG) Urine Bilirubin Negative (NEG) Urine Urobilinogen Dipstick 0.2 mg/dL (0.2 mg/dL) Urine Leukocyte Esterase Negative (NEG) Urine RBC 0 /HPF (0-2) Urine WBC 5-10 /HPF (0-4) Urine Squamous Epithelial Cells Few /LPF Urine Bacteria Few /HPF (0-FEW) Urine Hyaline Casts Few /HPF Urine Mucus Mod /LPF Urine Yeast Present /HPF Glucose (Fingerstick) 153 mg/dL (70-99) White Blood Count 7.5 x10^3/uL (4.0-11.0) Red Blood Count 3.47 x10^6/uL (4.30-5.70) Hemoglobin 9.9 g/dL (13.0-17.5) Hematocrit 29.9 % (39.0-53.0) Mean Corpuscular Volume 86 fL (79-100) Mean Corpuscular Hemoglobin 29 pg (25-35) Mean Corpuscular Hemoglobin Concent 33 g/dL (31-37) Red Cell Distribution Width 15.2 % (11.5-14.5) Platelet Count 279 x10^3/uL (140-400) Neutrophils (%) (Auto) 66 % (31-73) Lymphocytes (%) (Auto) 24 % (24-48) Monocytes (%) (Auto) 8 % (0-9) Eosinophils (%) (Auto) 1 % (0-3) Basophils (%) (Auto) 1 % (0-3) Neutrophils # (Auto) 4.9 x10^3uL (1.8-7.7) Lymphocytes # (Auto) 1.8 x10^3/uL (1.0-4.8) Monocytes # (Auto) 0.6 x10^3/uL (0.0-1.1) Eosinophils # (Auto) 0.1 x10^3/uL (0.0-0.7) Basophils # (Auto) 0.0 x10^3/uL (0.0-0.2) Sodium Level 144 mmol/L (136-145) Potassium Level 3.7 mmol/L (3.5-5.1) Chloride Level 109 mmol/L (98-107) Carbon Dioxide Level 25 mmol/L (21-32) Anion Gap 10 (6-14) Blood Urea Nitrogen 31 mg/dL (8-26) Creatinine 1.2 mg/dL (0.7-1.3) Estimated GFR (Cockcroft-Gault) 59.3 BUN/Creatinine Ratio 26 (6-20) Glucose Level 40 mg/dL (70-99) Calcium Level 8.8 mg/dL (8.5-10.1) Total Bilirubin 0.5 mg/dL (0.2-1.0) Aspartate Amino Transf (AST/SGOT) 20 U/L (15-37) Alanine Aminotransferase (ALT/SGPT) < 6 U/L (16-63) Alkaline Phosphatase 101 U/L (46-116) Total Protein 6.2 g/dL (6.4-8.2) Albumin 3.1 g/dL (3.4-5.0) Albumin/Globulin Ratio 1.0 (1.0-1.7) Test 03/08/17 05:12 03/08/17 05:38 03/08/17 06:19 03/08/17 06:59 Glucose (Fingerstick) 30 mg/dL (70-99) 30 mg/dL (70-99) 188 mg/dL (70-99) 203 mg/dL (70-99) Test 03/08/17 10:09 03/08/17 16:21 Glucose (Fingerstick) 175 mg/dL (70-99) 260 mg/dL (70-99) MODESTO WU MD March 08, 2017 19:13
[2017-03-08] MEDS: INSULIN DETEMIR 300 UNITS/3 ML INSULN.PEN. SQ SCH (20:30)
[2017-03-08 23:00] VITALS: BP 165/82
[2017-03-09 03:00] VITALS: BP 165/85
[2017-03-09 04:19] LABS: CALCIUM 8.7 mg/dL (8.5-10.1); CREATININE 0.9 mg/dL (0.7-1.3); GFR 82.7; POTASSIUM 3.9 mmol/L (3.5-5.1)
[2017-03-09] MEDS: COLESTIPOL HCL 1 GM TABLET PO SCH (06:17)
[2017-03-09 06:56] VITALS: BP 170/89
[2017-03-09] MEDS: SODIUM BICARBONATE VIAL 50 MEQ in IV 1/2 NORMAL SALINE 1,000 ML IV SCH (07:42)
--- NOTE | 2017-03-09 07:57 | PDOC ---
GENERAL General: see discharge summary. Problems: VITAL SIGNS Vital Signs: Vital Signs Date Time Temp Pulse Resp B/P (MAP) Pulse Ox O2 Delivery O2 Flow Rate FiO2 03/09/17 06:56 98.2 73 18 170/89 (116) 97 Room Air 98.2 I & O I & O Intake and Output 03/09/17 07:00 Intake Total 1470 ml Output Total 200 ml Balance 1270 ml Intake Oral 1470 ml Output Urine Total 200 ml # Voids 3 # Bowel Movements 5 ALLERGIES Allergies: Allergies Coded Allergies Type Severity Reaction Last Updated Verified Penicillins Allergy Severe 01/23/16 Yes levofloxacin Allergy Intermediate 01/23/16 Yes MEDS Medications: Current Medications Medications (Trade) Dose Ordered Sig/Bryson Start Time Stop Time Status Last Admin Dose Admin Acetaminophen (Tylenol) 650 mg PRN Q6HRS PRN 03/08/17 04:00 03/08/17 04:02 650 MG Alprazolam (Xanax) 0.25 mg TID 03/07/17 14:00 03/08/17 20:17 0.25 MG Aspirin (Children'S Aspirin) 81 mg DAILYWBKFT 03/08/17 08:00 03/08/17 08:15 81 MG Carbidopa/Levodopa (Sinemet Cr) 1 tab.sa TID 03/07/17 14:00 03/08/17 20:17 1 TAB.SA Ceftriaxone Sodium 2 gm/ Sodium Chloride 100 ml @ 200 mls/hr 1X STAT 03/07/17 09:07 03/07/17 09:36 DC 03/07/17 09:55 200 MLS/HR Citalopram Hydrobromide (CeleXA) 20 mg DAILY 03/08/17 09:00 03/08/17 08:16 20 MG Colestipol HCl (Colestid) 1 gm BID66 03/07/17 18:00 03/09/17 06:17 1 GM Dextrose (Dextrose 50%-Water Syringe) 12.5 gm PRN Q15MIN PRN 03/07/17 12:45 Insulin Aspart (NovoLOG) 0-5 UNITS TIDWMEALS 03/07/17 17:00 03/08/17 17:31 4 UNITS Insulin Detemir (Levemir) 10 units QHS 03/07/17 21:00 03/08/17 20:30 10 UNITS Insulin Human Regular (NovoLIN R VIAL) 6 unit PRN Q1HR PRN 03/07/17 10:15 03/07/17 12:43 DC Lactobacillus Acidophilus (Bacid, Wendie-Bid) 1 tab DAILY 03/08/17 09:00 03/08/17 08:15 1 TAB Ondansetron HCl (Zofran) 4 mg PRN Q8HRS PRN 03/07/17 10:00 03/08/17 09:59 DC Sodium Bicarbonate 50 meq/Sodium Chloride 1,050 ml @ 125 mls/hr Q8H24M 03/07/17 12:45 03/09/17 07:42 125 MLS/HR Sodium Chloride 1,000 ml @ 125 mls/hr 1X ONCE 03/07/17 10:00 03/07/17 17:59 DC 03/07/17 13:15 125 MLS/HR LAB Lab: Laboratory Tests Test 03/08/17 10:09 03/08/17 16:21 03/08/17 20:16 03/09/17 01:38 Glucose (Fingerstick) 175 mg/dL (70-99) 260 mg/dL (70-99) 203 mg/dL (70-99) 103 mg/dL (70-99) Test 03/09/17 02:55 03/09/17 07:12 Sodium Level 141 mmol/L (136-145) Potassium Level 3.9 mmol/L (3.5-5.1) Chloride Level 103 mmol/L (98-107) Carbon Dioxide Level 33 mmol/L (21-32) Anion Gap 5 (6-14) Blood Urea Nitrogen 17 mg/dL (8-26) Creatinine 0.9 mg/dL (0.7-1.3) Estimated GFR (Cockcroft-Gault) 82.7 Glucose Level 78 mg/dL (70-99) Calcium Level 8.7 mg/dL (8.5-10.1) Glucose (Fingerstick) 50 mg/dL (70-99) MODESTO WU MD March 09, 2017 07:57
[2017-03-09] MEDS: INSULIN ASPART 300 UNITS/3 ML INSULN.PEN SQ SCH ×2 (08:00→12:24)
[2017-03-09] MEDS: LACTOBACILLUS ACIDOPH & BULGAR 1 TABLET. PO SCH (08:58)
[2017-03-09] MEDS: ALPRAZolam 0.25 MG TABLET PO SCH (08:58)
[2017-03-09] MEDS: ASPIRIN CHEWABLE 81 MG TABLET. PO SCH (08:58)
[2017-03-09] MEDS: CITALOPRAM 20 MG TABLET. PO SCH (08:58)
[2017-03-09] MEDS: CARBIDOPA/LEVODOPA CR 25/100MG TABLET.SA. PO SCH (08:58)
--- NOTE | 2017-03-09 10:28 | DS ---
DATE OF DISCHARGE: 03/09/2017 PRIMARY DIAGNOSIS: Dehydration. ADDITIONAL DIAGNOSES: Likely viral gastroenteritis, acute renal failure, resolving during stay; hyperkalemia, resolving during stay; lactic acidosis, resolving during the stay; hyperglycemia, improved during stay with episodes of hypoglycemia in the morning; labile diabetes mellitus, hypotension on admission, recent prostate infection with treatment for the same, and Parkinson's disease. CHIEF COMPLAINT AND HISTORY OF PRESENT ILLNESS: This is a 72-year-old male who was admitted through the Emergency Room on the day of admission feeling bad about poor oral intake, weakness, and hypotension with the above labs findings. SUMMARY OF STAY: The patient was admitted and hydrated with the resolution of all his metabolic abnormalities. He did continue to have some intermittent fasting hypoglycemia in the morning which was treated with juices. He was feeling much better, was taking oral well and was back to his standard mental status and feeling stronger, was able mobility-mckinley to do his regular baseline. It was felt he could be dismissed back to the retirement on the day of the discharge. DISPOSITION: The patient was discharged to the retirement on diabetic diet and activity as tolerated. We will follow him there. DISCHARGE MEDICATIONS: Listed on the medical record and have been addressed. MODESTO WU MD DR: KULDEEP/leatha JOB#: [id number] / [id number]
[2017-03-09 10:37] VITALS: BP 145/74
--- NOTE | 2017-03-09 11:28 | PDOC ---
Renal-Progress Notes Subjective Notes Notes NONE History of Present Illness Hx of present illness STABLE Vitals Vitals Vital Signs Date Time Temp Pulse Resp B/P (MAP) Pulse Ox O2 Delivery O2 Flow Rate FiO2 03/09/17 10:37 98.2 79 18 145/74 (97) 99 Room Air 98.2 Weight Weight [ ] I.O. Intake and Output Intake and Output 03/09/17 07:00 Intake Total 1470 ml Output Total 200 ml Balance 1270 ml Intake Oral 1470 ml Output Urine Total 200 ml # Voids 3 # Bowel Movements 5 Labs Labs Laboratory Tests Test 03/08/17 16:21 03/08/17 20:16 03/09/17 01:38 03/09/17 02:55 Glucose (Fingerstick) 260 mg/dL (70-99) 203 mg/dL (70-99) 103 mg/dL (70-99) Sodium Level 141 mmol/L (136-145) Potassium Level 3.9 mmol/L (3.5-5.1) Chloride Level 103 mmol/L (98-107) Carbon Dioxide Level 33 mmol/L (21-32) Anion Gap 5 (6-14) Blood Urea Nitrogen 17 mg/dL (8-26) Creatinine 0.9 mg/dL (0.7-1.3) Estimated GFR (Cockcroft-Gault) 82.7 Glucose Level 78 mg/dL (70-99) Calcium Level 8.7 mg/dL (8.5-10.1) Test 03/09/17 07:12 03/09/17 11:05 Glucose (Fingerstick) 50 mg/dL (70-99) 224 mg/dL (70-99) Micro Micro Microbiology 03/07/17 Blood Culture - Preliminary, Resulted NO GROWTH AFTER 2 DAYS 03/07/17 Urine Culture - Preliminary, Resulted 03/07/17 Urine Culture Result 1 ([facility]EL) - Preliminary, Resulted Review of Systems Constitutional: yes: no symptom reported Eyes: Yes: no symptom reported Cardiovascular: Yes no symptom reported Genitourinary: Yes: no symptom reported Skin: Yes no symptom reported Psychiatric/Neurological: Yes: no symptom reported Physical Exam General Appearance: no apparent distress Respiratory: bilateral CTA Heart: S1S2 Abdomen: soft, bowel sounds present Genitourinary: bladder flat Neurology: alert Musculoskeletal: Osteoarthritis Assessment Assessment IMP DEHYDRATION TAL-RESOLVED PLAN WILL SIGN OFF STOP IVF'S PLEASE CALL IF NEEDED YCRUS LINDSEY MD March 09, 2017 11:27
== END 2017-03-09 12:40 | disposition home or self-care (01) | DRG 637 ==
LOC: ER 08:35 → 5 SOUTH 09:17
PROVIDERS: ADMIT Family Medicine; ATTEND Family Medicine
DX: E11.65 Type 2 diabetes mellitus with hyperglycemia (principal); N17.1 Acute kidney failure with acute cortical necrosis; E87.2 Acidosis; A08.4 Viral intestinal infection, unspecified; E83.52 Hypercalcemia; E86.0 Dehydration; E87.5 Hyperkalemia; G20 Parkinson's disease; H40.9 Unspecified glaucoma; I10 Essential (primary) hypertension; F32.9 Major depressive disorder, single episode, unspecified; M19.90 Unspecified osteoarthritis, unspecified site; I95.9 Hypotension, unspecified; Z88.1 Allergy status to other antibiotic agents; Z79.4 Long term (current) use of insulin; Z82.49 Family history of ischemic heart disease and other diseases of the circulatory system; Z88.0 Allergy status to penicillin; Z98.49 Cataract extraction status, unspecified eye
CPT/HCPCS: 36415; 71010; 76770; 80048; 80053; 81001; 82550; 82947; 83605; 83690; 83735; 83880; 84443; 84484; 85027; 85610; 85730; 87040; 87086; 87641; 93005; 96360; J0696; J1815; J7030; 99285-25

== ENCOUNTER 2017-03-24 09:09 | Emergency (ER) | payer MEDICARE, OTHER ==
[~2017-03-24] VITALS: Ht 170.2 cm; Wt 59.4 kg
[~2017-03-24 09:09] MED LIST changes: +CARB1TAB2 PO; +CIPR500T PO; +FLUC200T PO; -INSU100V10 IJ; -INSU100V10 SQ; +INSU100V11 IJ; +INSU100V11 SQ; +LATA2.5D3 EACHEYE; +LORA10TA68 PO; +METF500T4 PO; -NPH,100V4 SQ; +NPH,100V5 SQ; +SULF-143 PO; -SULF1TAB3 PO
--- NOTE | 2017-03-24 10:03 | PHYS DOC ---
Past Medical History Past Medical History: Anxiety, Depression, Diabetes-Type I, Diabetes-Type II, Hypertension, UTI, Other Additional Past Medical Histor: encephalopathy, weakness, frequent falls Past Surgical History: No Surgical History Alcohol Use: None Drug Use: None Adult General Chief Complaint Chief Complaint: WEAKNESS/GENERALIZED HPI HPI Patient is a 72 year old male who presents by EMS from nursing facility for generalized weakness associated with hypotension. He was unable to get out of his bed this morning, so his vitals were taken. He was noted to be hypotensive in the 80s. His blood sugar was in the 200s. Therefore, they called EMS. Upon arrival, the patient has only complaint of minimal internalized weakness. He states he is usually wheelchair bound and can transfer alone or with minimal assistance. He denies fever or chills, nausea or vomiting, abdominal pain, chest pain, headache, vision changes, numbness, tingling, focal weakness. Eyes dysuria or hematuria or diarrhea. Review of Systems Review of Systems Constitutional: Denies fever or chills [] Eyes: Denies change in visual acuity, redness, or eye pain [] HENT: Denies nasal congestion or sore throat [] Respiratory: Denies cough or shortness of breath [] Cardiovascular: No additional information not addressed in HPI [] GI: Denies abdominal pain, nausea, vomiting, bloody stools or diarrhea [] : Denies dysuria or hematuria [] Musculoskeletal: Denies back pain or joint pain [] Integument: Denies rash or skin lesions [] Neurologic: Denies headache, focal weakness or sensory changes [] Endocrine: Denies polyuria or polydipsia [] Allergies Allergies Allergies Coded Allergies Type Severity Reaction Last Updated Verified Penicillins Allergy Severe 01/23/16 Yes levofloxacin Allergy Intermediate 01/23/16 Yes Physical Exam Physical Exam Constitutional: Well developed, well nourished, no acute distress, non-toxic appearance. [] HENT: Normocephalic, atraumatic, bilateral external ears normal, oropharynx moist, nose normal. [] Eyes: PERRLA, EOMI. [] Neck: Normal range of motion, supple. [] Cardiovascular:Heart rate regular rhythm, no murmur [] Lungs & Thorax: Bilateral breath sounds clear to auscultation [] Abdomen: Bowel sounds normal, soft, no tenderness. [] Skin: Warm, dry, no erythema, no rash. [] Back: Normal range of motion. [] Extremities: No tenderness, ROM intact, no edema. [] Neurologic: Alert and oriented X 3, normal motor function, normal sensory function, no focal deficits noted. [] Psychologic: Affect normal, judgement normal, mood normal. [] Current Patient Data Vital Signs Vital Signs Date Time Temp Pulse Resp B/P (MAP) Pulse Ox O2 Delivery O2 Flow Rate FiO2 03/24/17 10:40 66 16 128/61 (83) 100 Room Air 03/24/17 09:09 97.9 97.9 Lab Values Laboratory Tests Test 03/24/17 09:18 Glucose (Fingerstick) 125 mg/dL (70-99) H Course & Med Decision Making Course & Med Decision Making Glucose is reassuring at this time. He was able to transfer from bed to wheelchair with minimal assistance. He has no major concerns and would like to return to nursing facility. Discussed case with Dr. Wu, primary care, who contributed to the HPI and agrees with this plan. Dragon Disclaimer Dragon Disclaimer This electronic medical record was generated, in whole or in part, using a voice recognition dictation system. Departure Departure Impression: Primary Impression: Weakness Disposition: 01 HOME, SELF-CARE (Nursing facility) Condition: STABLE Referrals: MODESTO WU MD (PCP) Patient Instructions: Weakness, [id number] Additional Instructions: Follow-up with your primary care doctor. Return for any concerns. Usama AWNG MD Mar 24, 2017 10:03
[2017-03-24 10:40] VITALS: BP 128/61
== END 2017-03-24 10:59 | disposition home or self-care (01) ==
LOC: ER 09:09
DX: R53.1 Weakness (principal); I67.4 Hypertensive encephalopathy; E10.9 Type 1 diabetes mellitus without complications; I10 Essential (primary) hypertension; Z87.440 Personal history of urinary (tract) infections; Z88.0 Allergy status to penicillin; Z88.1 Allergy status to other antibiotic agents
CPT/HCPCS: 82962; 99283

== ENCOUNTER → 2017-04-30 | Outpatient (CLI) | payer MEDICARE, OTHER ==
--- NOTE | 2017-04-30 14:47 | RAD ---
Gastric Emptying Study Indication: Patient is diabetic Procedure: Serial HIEN projection static images are obtained over the stomach following oral administration of 2.1 mCi of 99 M technetium sulfur colloid in a solid meal. Findings: There is delayed radiotracer emptying from the stomach without evidence for reflux into the area of the esophagus. The gastric emptying half time is 163 minutes (normal is 66 +/- 22 minutes). There is a significant lag phase. Impression: Abnormal delayed gastric emptying.
== END | disposition home or self-care (01) ==
LOC: NM 07:31
PROVIDERS: ATTEND Internal Medicine Gastroenterology
DX: I10 Essential (primary) hypertension (principal); Z79.4 Long term (current) use of insulin; K30 Functional dyspepsia; R11.2 Nausea with vomiting, unspecified
CPT/HCPCS: 78264; A9541

== ENCOUNTER 2021-07-15 10:51 | Inpatient (IN) | payer MEDICARE, OTHER ==
[~2021-07-15] VITALS: Ht 172.7 cm; Wt 74.3 kg
[~2021-07-15 10:51] MED LIST changes: +ALPR0.5T6 PO; -ASPI81TA44 PO; +ASPI81TA59 PO; +CARB-183 PO; -CARB1TAB2 PO; +CEPH-264 PO; +CHLO15MO2 PO; -CIPR500T PO; +CIPR500T2 PO; -CITA20TA5 PO; +CITA20TA6 PO; +CYAN-25 PO; +DIPH25CA58 PO; +FERR325T14 PO; +GABA-585 PO; +INSU100C4 SQ; +INSU100I13 SQ; +INSU100V8 SQ; +LEVO75TA5 PO; -LISI-334 PO; +LISI10TA16 PO; +LISI20TA18 PO; +MAGN400C PO; +MECL-75 PO; -MECL25TA3 PO; +METF500T16 PO; -METF500T4 PO; +METO10TA81 PO; +ONDA4TAB7 PO; +PETR99OI2 TP; +POLY17PO29 PO; +SENN-82 PO; +SODI30SP NS; +TIMO10DR5 EACHEYE; +WHEA1POW8 PO; +[UNRECOGNIZED DRUG - CODE] TP
--- NOTE | 2021-07-15 11:37 | PHYS DOC ---
Past Medical History Past Medical History: Anemia, Anxiety, Depression, Diabetes-Type I, Diabetes- Type II, GERD, Hypertension, Hypotension, UTI, Other Additional Past Medical Histor: encephalopathy, PARKINSONS, CKD, HYPERKALEMIA, hyperparathyroid (LOW OROSCO) Past Surgical History: Other Additional Past Surgical Histo: unknown (LOW OROSCO) Smoking Status: Unknown if ever smoked Alcohol Use: None Drug Use: None (LOW OROSCO) General Adult EDM: Chief Complaint: SHORTNESS OF BREATH HPI: HPI: Patient is a 76 year old male with history of Parkinson's disease who presents from halfway via EMS with reported complaints of hypoxia, hypotension, and altered mental status. Patient states he was on an stationary bicycle, when he began to feel unwell. Per halfway staff, he became cool, pale and vomited 1 time. assisted states his oxygen saturation was 83% on room air, EMS reports it was 64% on room air en route. Blood pressure was reported to be mid 70s/30s both by halfway staff and EMS. Patient reports chills but denies headache, lightheadedness, chest pain, palpitations, shortness of breath, cough, dysuria, hematuria and any pain. Patient has no other complaints at this time. (LOW OROSCO) Review of Systems: Review of Systems: Constitutional: See HPI Respiratory: Denies cough or shortness of breath. Cardiovascular: Denies chest pain, palpitations or edema. GI: Denies abdominal pain, nausea, vomiting, bloody stools or diarrhea. : See HPI Musculoskeletal: Denies back pain or joint pain. Integument: Denies rash or other skin lesions Neurologic: Denies headache, focal weakness or sensory changes. (LOW OROSCO) Heart Score: C/O Chest Pain: No (LOW OROSCO) Allergies: Allergies: Allergies Coded Allergies Type Severity Reaction Last Updated Verified Penicillins Allergy Severe 05/06/19 Yes levofloxacin Allergy Intermediate 01/23/16 Yes (LOW OROSCO) Physical Exam: PE: Constitutional: Patient is resting comfortably in bed. Well developed, well nourished, no acute distress, non-toxic appearance. HENT: Normocephalic, atraumatic, bilateral external ears normal, oropharynx moist, nose normal. Eyes: Right eye strabismus, conjunctiva normal, no discharge. Neck: Normal range of motion, no tenderness, supple, no stridor. Cardiovascular: Heart rate regular rhythm, no murmur. Lungs & Thorax: Bilateral breath sounds clear to auscultation. Abdomen: Bowel sounds normal, soft, no tenderness, no masses, no pulsatile mas ses. Skin: Warm, dry, no erythema, no rash. Back: No tenderness, no CVA tenderness. Extremities: No tenderness, no cyanosis, no clubbing, ROM intact, no edema. Neurologic: Alert and oriented x3, normal motor function, normal sensory function, no focal deficits noted. Psychologic: Affect normal, judgement normal, mood normal. (LOW OROSCO) Current Patient Data: Labs: Laboratory Tests Test 07/15/21 12:23 07/15/21 13:40 White Blood Count 17.4 x10^3/uL (4.0-11.0) Red Blood Count 4.39 x10^6/uL (4.30-5.70) Hemoglobin 12.6 g/dL (13.0-17.5) Hematocrit 39.0 % (39.0-53.0) Mean Corpuscular Volume 89 fL (79-100) Mean Corpuscular Hemoglobin 29 pg (25-35) Mean Corpuscular Hemoglobin Concent 32 g/dL (31-37) Red Cell Distribution Width 14.2 % (11.5-14.5) Platelet Count 375 x10^3/uL (140-400) Neutrophils (%) (Auto) 89 % (31-73) Lymphocytes (%) (Auto) 5 % (24-48) Monocytes (%) (Auto) 5 % (0-9) Eosinophils (%) (Auto) 1 % (0-3) Basophils (%) (Auto) 0 % (0-3) Neutrophils # (Auto) 15.4 x10^3/uL (1.8-7.7) Lymphocytes # (Auto) 0.9 x10^3/uL (1.0-4.8) Monocytes # (Auto) 0.8 x10^3/uL (0.0-1.1) Eosinophils # (Auto) 0.2 x10^3/uL (0.0-0.7) Basophils # (Auto) 0.0 x10^3/uL (0.0-0.2) Sodium Level 135 mmol/L (136-145) Potassium Level 4.7 mmol/L (3.5-5.1) Chloride Level 100 mmol/L (98-107) Carbon Dioxide Level 28 mmol/L (21-32) Anion Gap 7 (6-14) Blood Urea Nitrogen 25 mg/dL (8-26) Creatinine 1.3 mg/dL (0.7-1.3) Estimated GFR (Cockcroft-Gault) 53.5 BUN/Creatinine Ratio 19 (6-20) Glucose Level 252 mg/dL (70-99) Lactic Acid Level 2.5 mmol/L (0.4-2.0) Calcium Level 9.5 mg/dL (8.5-10.1) Total Bilirubin 0.4 mg/dL (0.2-1.0) Aspartate Amino Transf (AST/SGOT) 26 U/L (15-37) Alanine Aminotransferase (ALT/SGPT) 18 U/L (16-63) Alkaline Phosphatase 195 U/L (46-116) Total Protein 8.1 g/dL (6.4-8.2) Albumin 3.7 g/dL (3.4-5.0) Albumin/Globulin Ratio 0.8 (1.0-1.7) Urine Collection Type U cath Urine Color Yellow Urine Clarity Clear Urine pH 5.5 (<5.0-8.0) Urine Specific [place] 1.020 (1.000-1.030) Urine Protein Negative mg/dL (NEG-TRACE) Urine Glucose (UA) 500 mg/dL (NEG) Urine Ketones (Stick) Negative mg/dL (NEG) Urine Blood Negative (NEG) Urine Nitrite Negative (NEG) Urine Bilirubin Negative (NEG) Urine Urobilinogen Dipstick 0.2 mg/dL (0.2 mg/dL) Urine Leukocyte Esterase Negative (NEG) Urine RBC Rare /HPF (0-2) Urine WBC 1-4 /HPF (0-4) Urine Squamous Epithelial Cells Few /LPF Urine Transitional Epithelial Cells Few /LPF Urine Bacteria 0 /HPF (0-FEW) Urine Hyaline Casts Few /HPF Urine Mucus Marked /LPF Vital Signs: Vital Signs Date Time Temp Pulse Resp B/P (MAP) Pulse Ox O2 Delivery O2 Flow Rate FiO2 9/28/21 13:23 74 25 102/56 (71) 100 Nasal Cannula 4.0 07/15/21 12:53 72 16 97/55 (69) 100 Nasal Cannula 4.0 07/15/21 12:23 78 19 111/59 (76) 95 Nasal Cannula 4.0 07/15/21 11:53 76 16 97/53 (68) 100 Nasal Cannula 4.0 07/15/21 11:23 76 17 113/58 (76) 100 Nasal Cannula 4.0 07/15/21 10:55 97.9 83 16 113/61 (78) 98 Nasal Cannula 4.0 97.9 (LOW OROSCO) EKG: EKG: EKG Interpreted by Dr. Grady: Significant artifact secondary to Parkinson tremor. Regular rate and rhythm 83 bpm with no ectopic beats. No concerning ST-T wave changes. Regular QR interval. (LOW OROSCO) Radiology/Procedures: Radiology/Procedures: PROCEDURE: PORTABLE CHEST 1V Single view of the chest. 07/15/2021 11:24 AM Indication: Reason: hypoxia / Spl. Instructions: / History: Comparison: Chest radiograph May 05, 2019 Findings: There is no focal consolidation. There is no pleural effusion or pneumothorax. Heart size is top normal. Tortuosity of the thoracic aorta noted. No acute osseous abnormalities are seen. Impression: No evidence of acute cardiopulmonary process. Electronically signed by: Pasquale Chamberlain MD (07/15/2021 12:04 PM) [id number] (LOW OROSCO) Course & Med Decision Making: Course & Med Decision Making Pertinent Labs and Imaging studies reviewed. (See chart for details) In the department, on room air patient was satting around 81%. Patient shows leukocytosis and lactic acidosis, presumed source is UTI. Patient will be straight cath to obtain urine sample. Dr. Wu will accept patient to telemetry for IV antibiotics. Patient bp has recently dropped, but he will be receiving NS fluid bolus in the ED. Dr. Wu requested starting patient on rocephin. Patient reports allergic rash on penicillins, however states he has had no reaction to cephalosporins in the past. (LOW OROSCO) Dragon Disclaimer: Dragon Disclaimer: This electronic medical record was generated, in whole or in part, using a voice recognition dictation system. (LOW OROSCO) Departure Departure Impression: Primary Impression: UTI (urinary tract infection) Qualified Codes: N39.0 - Urinary tract infection, site not specified Additional Impressions: Lactic acidosis History of Parkinson's disease History of hypotension Diabetes type I Qualified Codes: E10.65 - Type 1 diabetes mellitus with hyperglycemia Disposition: ADMITTED INPATIENT Admitting Physician: Modesto Wu (LOW OROSCO) Condition: STABLE Referrals: MODESTO WU MD (PCP) Attending Signature Attending Signature I have reviewed the PA/RICKSHAW DRIVER's note and plan of care. I was available for consultation as needed during the patient's visit in the emergency department. I agree with the clinical impression, plan, and disposition. (RUPAL GRADY DO) Attending Signature I have participated in the care of this patient and I have reviewed and agree with all pertinent clinical information above including history, exam, and recommendations. (LOW OROSCO) LOW OROSCO Jul 15, 2021 11:37 RUPAL GRADY DO Jul 15, 2021 16:28
--- NOTE | 2021-07-15 12:06 | RAD ---
Single view of the chest. 07/15/2021 11:24 AM Indication: Reason: hypoxia / Spl. Instructions: / History: Comparison: Chest radiograph May 05, 2019 Findings: There is no focal consolidation. There is no pleural effusion or pneumothorax. Heart size i s top normal. Tortuosity of the thoracic aorta noted. No acute osseous abnormalities are seen. Impression: No evidence of acute cardiopulmonary process. Electronically signed by: Pasquale Chamberlain MD (07/15/2021 12:04 PM) [id number]
[2021-07-15 12:57] LABS: BASO % 0 % (0-3); EOS # 0.2 x10^3/uL (0.0-0.7); EOS % 1 % (0-3); HEMOGLOBIN 12.6 g/dL (13.0-17.5); LYMPH # 0.9 x10^3/uL (1.0-4.8); LYMPH % 5 % (24-48); MEAN CORPUSCULAR HEMOGLOBIN 29 pg (25-35); MEAN CORPUSCULAR HGB CONC 32 g/dL (31-37); MEAN CORPUSCULAR VOLUME 89 fL (79-100); MONO # 0.8 x10^3/uL (0.0-1.1); MONO % 5 % (0-9); NEUT # 15.4 x10^3/uL (1.8-7.7); NEUT % 89 % (31-73); PLATELET COUNT 375 x10^3/uL (140-400); RED BLOOD COUNT 4.39 x10^6/uL (4.30-5.70); RED CELL DISTRIBUTION WIDTH 14.2 % (11.5-14.5); WHITE BLOOD COUNT 17.4 x10^3/uL (4.0-11.0)
[2021-07-15 13:06] LABS: CALCIUM 9.5 mg/dL (8.5-10.1); CREATININE 1.3 mg/dL (0.7-1.3); GFR 53.5; POTASSIUM 4.7 mmol/L (3.5-5.1)
[2021-07-15 13:13] LABS: ALBUMIN 3.7 g/dL (3.4-5.0); ALBUMIN/GLOBULIN RATIO 0.8 (1.0-1.7); TOTAL BILIRUBIN 0.4 mg/dL (0.2-1.0); TOTAL PROTEIN 8.1 g/dL (6.4-8.2)
[2021-07-15 13:54] LABS: BILIRUBIN,URINE NEGATIVE (NEG); CLARITY,URINE CLEAR; COLOR,URINE YELLOW; NITRITE,URINE NEGATIVE (NEG); PH,URINE 5.5 (<5.0-8.0); PROTEIN,URINE NEGATIVE (NEG-TRACE); UROBILINOGEN,URINE 0.2 mg/dL (0.2 mg/dL)
[2021-07-15 14:00] LABS: HYALINE CASTS, URINE FEW /HPF
[2021-07-15] MEDS ORDERED: IV NORMAL SALINE 1000ML BAG 1,000 ML IV ONE ×3 (14:00→14:15)
[2021-07-15] MEDS ORDERED: cefTRIAXone IV Push 1 GM VIAL. IVP ONE (14:00)
[2021-07-15 14:01] LABS: BACTERIA,URINE 0 /HPF (0-FEW); RBC,URINE RARE /HPF (0-2)
[2021-07-15] MEDS ORDERED: IV NORMAL SALINE 500ML BAG 500 ML IV ONE (14:15)
[2021-07-16 02:44] VITALS: BP 157/60
[2021-07-16] MEDS ORDERED: [UNRECOGNIZED DRUG - CODE] OP (05:03)
[2021-07-16] MEDS ORDERED: DONE10TA7 PO (05:03)
[2021-07-16] MEDS ORDERED: INSU100I13 SQ ×2 (05:03)
[2021-07-16] MEDS ORDERED: BRIM5DRO2 OU (05:03)
[2021-07-16] MEDS ORDERED: MIRT-8 PO (05:03)
[2021-07-16] MEDS ORDERED: ASPI81TA11 PO (05:03)
[2021-07-16] MEDS ORDERED: ALPR0.254 PO (05:03)
[2021-07-16] MEDS ORDERED: INSU100C4 SQ (05:03)
[2021-07-16 07:00] VITALS: BP 134/57
[2021-07-16] MEDS ORDERED: POLYETHYLENE GLYCOL 3350 17 GM PACKET. PO PRN (09:45)
[2021-07-16] MEDS ORDERED: ACETAMINOPHEN 325 MG TABLET. PO PRN (09:45)
[2021-07-16] MEDS ORDERED: ONDANSETRON ODT 4 MG TAB.RAPDIS. PO PRN (10:00)
[2021-07-16] MEDS ORDERED: ALPRAZolam 0.25 MG TABLET PO SCH (10:00)
--- NOTE | 2021-07-16 10:16 | HP ---
ADMIT DATE: 07/16/2021 ADMISSION HISTORY AND PHYSICAL CHIEF COMPLAINT AND HISTORY OF PRESENT ILLNESS: This 76-year-old male is well known from [facility] as well as many years prior as an outpatient. The patient was on the exercise bike at the facility on the day of admission when he became weak, pale, sweaty, vomited a couple times, hypoxic and had altered mental status. He was quite hypotensive too, to be in the 70s and 30s. He was sent to the Emergency Room, where this was initially the case as well as found to have lactic acidosis and leukocytosis and admitted with the diagnosis of sepsis. PAST MEDICAL HISTORY: Remarkable for anxiety and depression as well as type 1 diabetes, hypertension, gastroparesis, Parkinson's disease, hyperparathyroidism, encephalopathy. MEDICATIONS: Brought with the patient, listed on the computer and have been addressed. ALLERGIES: HE IS ALLERGIC TO PENICILLIN, LEVAQUIN. SOCIAL HISTORY: He is a lifetime nonsmoker, nondrinker, does not use drugs. He is never , currently a resident of a residential. FAMILY HISTORY: Positive for longevity. REVIEW OF SYSTEMS: Remarkable for him feeling somewhat better, but was still complaining of discomfort in the penile area after being catheterized in the Emergency Room for urine specimen. He denies any current lightheadedness, dizziness, nausea and has had no further vomiting. PHYSICAL EXAMINATION: VITAL SIGNS: Stable. He is afebrile. Blood pressures have been trending up consistently since admission, he has ongoing hydration going on. HEAD, EYES, EARS, NOSE AND THROAT: Unremarkable. NECK: Supple. No lymphadenopathy or thyromegaly. CHEST: Clear to auscultation. HEART: Regular rate and rhythm without S3, S4 or murmur. ABDOMEN: Soft, nontender, without hepatosplenomegaly or mass. EXTREMITIES: Without cyanosis, clubbing or edema. NEUROLOGIC: He is intact. LABORATORY DATA: Initial lab is remarkable for a white count of 17,400 with a left shift. Chem panel shows a sugar of 252, alkaline phosphatase of 195. His lactic acid was elevated on admission at 2.5. Cath urine is not consistent with urine infection. COVID rapid testing is negative. Imaging in the Emergency Room included a chest x-ray that showed no evidence of acute cardiopulmonary process. IMPRESSION: 1. Sepsis with hypotension, leukocytosis, change in mental status and lactic acidosis. 2. Type 1 diabetes. 3. Parkinson's disease. 4. Other problems listed above. PLAN: Continue present hydration. We will restart home meds. Continue present Rocephin daily as we sort this out further. STEVEN DR: KULDEEP/leatha TID: [id number]
[2021-07-16] MEDS: CYANOCOBALAMIN (VITAMIN B-12) 1,000 MCG TABLET. PO SCH (10:33)
[2021-07-16] MEDS: LISINOPRIL 10 MG TABLET PO SCH (10:33)
[2021-07-16] MEDS: MAGNESIUM OXIDE 400 MG TABLET PO SCH (10:33)
[2021-07-16] MEDS: CITALOPRAM 20 MG TABLET. PO SCH (10:33)
[2021-07-16] MEDS: ASPIRIN ENTERIC COATED 81 MG TABLET.DR. PO SCH (10:33)
[2021-07-16] MEDS: SENNOSIDES/DOCUSATE 8.6/50MG TABLET. PO SCH ×2 (10:33→21:53)
[2021-07-16] MEDS: INSULIN GLARGINE SYRINGE. SQ SCH ×2 (10:46→22:13)
[2021-07-16 11:07] VITALS: BP 104/62
[2021-07-16] MEDS: cefTRIAXone IV Push 1 GM VIAL. IVP SCH (11:07)
[2021-07-16] MEDS: CARBIDOPA/LEVODOPA CR 25/100MG TABLET.SA. PO SCH ×3 (11:07→21:52)
[2021-07-16] MEDS: BRIMONIDINE 0.2% OPHTH SOLUTION 5ML BOTTLE. OD SCH ×2 (11:10→22:03)
[2021-07-16] MEDS: TIMOLOL 0.5% OPHTH SOLUTION 5ML BOTTLE. OU SCH ×2 (11:11→22:03)
[2021-07-16] MEDS: INSULIN LISPRO 300 UNITS/3 ML VIAL. SQ SCH ×2 (12:55→17:52)
--- NOTE | 2021-07-16 13:37 | NUR ---
SW following. Discussed with RN. 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 Rapid COVID-19 negative. NITIN will fax updates tomorrow. NITIN will continue to follow.
[2021-07-16] MEDS: GABAPENTIN 100 MG CAPSULE. PO SCH ×2 (15:10→21:53)
[2021-07-16] MEDS: ALPRAZolam 0.25 MG TABLET PO SCH ×2 (15:10→21:54)
[2021-07-16 15:11] VITALS: BP 108/54
[2021-07-16 19:00] VITALS: BP 153/66
[2021-07-16] MEDS: COLESTIPOL HCL 1 GM TABLET PO SCH (19:22)
[2021-07-16] MEDS ORDERED: PETROLATUM WHITE TP SCH (21:00)
[2021-07-16] MEDS: LACTOBACILLUS RHAMNOSUS GG 1 CAPSULE. PO SCH (21:53)
[2021-07-16] MEDS: MIRTAZAPINE 15 MG TABLET PO SCH (21:53)
[2021-07-16] MEDS: DONEPEZIL HCL 10 MG TABLET. PO SCH (21:53)
[2021-07-16] MEDS: LATANOPROST 0.005% OPHTH SOLUTION 2.5ML BOTTLE. OU SCH (22:02)
[2021-07-16 23:00] VITALS: BP 142/58
[2021-07-17 03:00] VITALS: BP 138/71
[2021-07-17] MEDS: COLESTIPOL HCL 1 GM TABLET PO SCH ×2 (06:40→17:46)
[2021-07-17] MEDS: LEVOTHYROXINE 75 MCG TABLET PO SCH (06:40)
[2021-07-17 07:00] VITALS: BP 167/73
[2021-07-17] MEDS: BRIMONIDINE 0.2% OPHTH SOLUTION 5ML BOTTLE. OD SCH ×2 (09:15→23:24)
[2021-07-17] MEDS: TIMOLOL 0.5% OPHTH SOLUTION 5ML BOTTLE. OU SCH ×2 (09:15→23:23)
[2021-07-17] MEDS: CARBIDOPA/LEVODOPA CR 25/100MG TABLET.SA. PO SCH ×3 (09:17→23:22)
[2021-07-17] MEDS: ALPRAZolam 0.25 MG TABLET PO SCH ×3 (09:18→23:23)
[2021-07-17] MEDS: CYANOCOBALAMIN (VITAMIN B-12) 1,000 MCG TABLET. PO SCH (09:18)
[2021-07-17] MEDS: SENNOSIDES/DOCUSATE 8.6/50MG TABLET. PO SCH ×2 (09:19→21:00)
[2021-07-17] MEDS: GABAPENTIN 100 MG CAPSULE. PO SCH ×3 (09:19→23:22)
[2021-07-17] MEDS: MAGNESIUM OXIDE 400 MG TABLET PO SCH (09:19)
[2021-07-17] MEDS: ASPIRIN ENTERIC COATED 81 MG TABLET.DR. PO SCH (09:19)
[2021-07-17] MEDS: LACTOBACILLUS RHAMNOSUS GG 1 CAPSULE. PO SCH ×2 (09:19→23:23)
[2021-07-17] MEDS: CITALOPRAM 20 MG TABLET. PO SCH (09:19)
[2021-07-17] MEDS: LISINOPRIL 10 MG TABLET PO SCH (09:20)
[2021-07-17] MEDS: cefTRIAXone IV Push 1 GM VIAL. IVP SCH (09:20)
--- NOTE | 2021-07-17 09:29 | PN ---
DATE: 07/17/2021 LOCATION: He is in room 558. SUBJECTIVE: This 76-year-old male remains hospitalized with hypotension, hypoxemia, leukocytosis, nausea and vomiting, consistent with sepsis of current unidentified source. He denies any major complaints this morning. He has had no more nausea or vomiting. OBJECTIVE: VITAL SIGNS: Stable. He is afebrile. Blood pressures are much better. Oxygen has been weaned at this point in time. GENERAL: He is on daily IV Rocephin. CHEST: Clear. HEART: Regular. ABDOMEN: Benign. IMPRESSION: 1. Sepsis of uncertain etiology at this point in time, improving. 2. Type 2 diabetes. 3. Parkinson's. PLAN: Continue present IV antibiotics. We will recheck labs in the morning, everything is going in the right direction. We will transition to oral meds with back to the correction. REUBEN DR: Santiago TID: [id number]
[2021-07-17] MEDS: INSULIN GLARGINE SYRINGE. SQ SCH ×2 (09:34→23:28)
[2021-07-17] MEDS: INSULIN LISPRO 300 UNITS/3 ML VIAL. SQ SCH ×3 (09:35→17:48)
[2021-07-17 10:34] VITALS: BP 148/62
[2021-07-17 15:00] VITALS: BP 179/75
[2021-07-17 19:00] VITALS: BP 177/75
[2021-07-17 23:00] VITALS: BP 151/64
[2021-07-17] MEDS: MIRTAZAPINE 15 MG TABLET PO SCH (23:23)
[2021-07-17] MEDS: DONEPEZIL HCL 10 MG TABLET. PO SCH (23:23)
[2021-07-17] MEDS: LATANOPROST 0.005% OPHTH SOLUTION 2.5ML BOTTLE. OU SCH (23:25)
[2021-07-18 03:00] VITALS: BP 159/73
[2021-07-18 07:00] VITALS: BP 139/68
[2021-07-18] MEDS: LEVOTHYROXINE 75 MCG TABLET PO SCH (07:36)
[2021-07-18] MEDS: COLESTIPOL HCL 1 GM TABLET PO SCH (07:36)
[2021-07-18 08:49] LABS: BASO % 1 % (0-3); EOS # 0.3 x10^3/uL (0.0-0.7); EOS % 4 % (0-3); HEMATOCRIT 35.4 % (39.0-53.0); HEMOGLOBIN 11.7 g/dL (13.0-17.5); LYMPH # 1.4 x10^3/uL (1.0-4.8); LYMPH % 17 % (24-48); MEAN CORPUSCULAR HEMOGLOBIN 29 pg (25-35); MEAN CORPUSCULAR HGB CONC 33 g/dL (31-37); MEAN CORPUSCULAR VOLUME 89 fL (79-100); MONO # 0.8 x10^3/uL (0.0-1.1); MONO % 10 % (0-9); NEUT % 70 % (31-73); PLATELET COUNT 332 x10^3/uL (140-400); RED CELL DISTRIBUTION WIDTH 13.8 % (11.5-14.5); WHITE BLOOD COUNT 8.7 x10^3/uL (4.0-11.0)
[2021-07-18] MEDS: BRIMONIDINE 0.2% OPHTH SOLUTION 5ML BOTTLE. OD SCH (08:50)
[2021-07-18] MEDS: TIMOLOL 0.5% OPHTH SOLUTION 5ML BOTTLE. OU SCH (08:50)
[2021-07-18] MEDS: CARBIDOPA/LEVODOPA CR 25/100MG TABLET.SA. PO SCH ×2 (08:51→13:54)
[2021-07-18] MEDS: ASPIRIN ENTERIC COATED 81 MG TABLET.DR. PO SCH (08:52)
[2021-07-18] MEDS: MAGNESIUM OXIDE 400 MG TABLET PO SCH (08:52)
[2021-07-18] MEDS: LACTOBACILLUS RHAMNOSUS GG 1 CAPSULE. PO SCH (08:52)
[2021-07-18] MEDS: LISINOPRIL 10 MG TABLET PO SCH (08:52)
[2021-07-18] MEDS: CITALOPRAM 20 MG TABLET. PO SCH (08:52)
[2021-07-18] MEDS: CYANOCOBALAMIN (VITAMIN B-12) 1,000 MCG TABLET. PO SCH (08:52)
[2021-07-18] MEDS: SENNOSIDES/DOCUSATE 8.6/50MG TABLET. PO SCH (08:52)
[2021-07-18] MEDS: ALPRAZolam 0.25 MG TABLET PO SCH ×2 (08:52→13:54)
[2021-07-18] MEDS: GABAPENTIN 100 MG CAPSULE. PO SCH ×2 (08:53→13:54)
[2021-07-18] MEDS: INSULIN GLARGINE SYRINGE. SQ SCH (09:03)
[2021-07-18] MEDS: INSULIN LISPRO 300 UNITS/3 ML VIAL. SQ SCH ×2 (09:04→12:54)
[2021-07-18] MEDS ORDERED: CEFD300C PO (10:11)
[2021-07-18] MEDS: cefTRIAXone IV Push 1 GM VIAL. IVP SCH (10:22)
--- NOTE | 2021-07-18 10:46 | DS ---
DATE OF DISCHARGE: 07/18/2021 PRIMARY DIAGNOSES: Sepsis of uncertain etiology. ADDITIONAL DIAGNOSES: Lactic acidosis, leukocytosis, hypotension, hypoxia, type 1 diabetes, Parkinson disease. CHIEF COMPLAINT/HISTORY OF PRESENT ILLNESS: This 76-year-old male, longterm resident at [facility], was on an exercise bike on the day of admission when he became hypotensive, pale, hypoxic with vomiting, but no loss of consciousness, although he was lightheaded. He was brought to the Emergency Room where he was found to have lactic acidosis, elevated white count in the 17,000 range. Oxygen level was as low as 64% on room air en route by ambulance. SUMMARY OF STAY: The patient was admitted, started on Rocephin as well as his regular home medications. He improved on a daily basis. Blood cultures were negative at the time of discharge. White count went from 17,400 on admission with a left shift to 8700 with a normal differential by the time of discharge. Imaging including chest x-ray was negative. Laboratory other than leukocytosis and lactic acidosis was unremarkable. Sugars were low throughout the stay. Urine did not show evidence of infection as the etiology. He was felt to be stable and able to be transitioned to p.o. meds with discharge back to the longterm on the day of discharge and this was accomplished. DISPOSITION: The patient is discharged back to the longterm to resume his regular longterm pre-hospital diet and activity with help. Med rec are basically his regular home meds plus Omnicef 300 b.i.d. for the next [address]: Santiago TID: [id number]
[2021-07-18 11:00] VITALS: BP 153/55
--- NOTE | 2021-07-18 14:41 | NUR ---
Report called to SEDRICK Shabazz at [facility] .
[2021-07-29] MEDS ORDERED: ATOR20TA58 PO (07:55)
== END 2021-07-18 14:50 | DRG 872 ==
LOC: ER 10:51 → ED HOLD 13:53 → 5 SOUTH 15:52
PROVIDERS: ADMIT Family Medicine; ATTEND Family Medicine
DX: A41.9 Sepsis, unspecified organism (principal); N39.0 Urinary tract infection, site not specified; E10.22 Type 1 diabetes mellitus with diabetic chronic kidney disease; E10.43 Type 1 diabetes mellitus with diabetic autonomic (poly)neuropathy; E21.3 Hyperparathyroidism, unspecified; G20 Parkinson's disease; E10.65 Type 1 diabetes mellitus with hyperglycemia; I12.9 Hypertensive chronic kidney disease with stage 1 through stage 4 chronic kidney disease, or unspecified chronic kidney disease; K31.84 Gastroparesis; N18.9 Chronic kidney disease, unspecified; R09.02 Hypoxemia; F32.9 Major depressive disorder, single episode, unspecified; Z79.4 Long term (current) use of insulin; F41.9 Anxiety disorder, unspecified; K21.9 Gastro-esophageal reflux disease without esophagitis; I95.9 Hypotension, unspecified; Z88.0 Allergy status to penicillin; Z88.8 Allergy status to other drugs, medicaments and biological substances
CPT/HCPCS: 36415; 71045; 80053; 81001; 82962; 83605; 85025; 87040; 87426; 96361; 96374; J0696; J1815; J7030; J7040; U0003; U0005; 99285-25; G0378

== ENCOUNTER 2021-09-17 12:23 | Inpatient (IN) | payer MEDICARE, OTHER ==
[~2021-09-17] VITALS: Ht 172.7 cm; Wt 73.1 kg
[~2021-09-17 12:23] MED LIST changes: +ASPI81TA11 PO; +ATOR20TA58 PO; +BRIM5DRO2 OU; +CEFD300C PO; +DONE10TA7 PO; +MIRT-8 PO; +[UNRECOGNIZED DRUG - CODE] OP
[2021-09-17] MEDS ORDERED: IV NORMAL SALINE 1000ML BAG 1,000 ML IV ONE (13:00)
--- NOTE | 2021-09-17 13:13 | PHYS DOC ---
Past Medical History Past Medical History: Anemia, Anxiety, CHF, Depression, Diabetes-Type I, Diabetes-Type II, GERD, Hypertension, Hypotension, UTI, Other Additional Past Medical Histor: HYPERPARATHYROIDISM Past Surgical History: No Surgical History Additional Past Surgical Histo: unknown Smoking Status: Unknown if ever smoked Alcohol Use: None Drug Use: None Social History Narrative: Patient from [facility] General Adult EDM: Chief Complaint: HYPOTENSION HPI: HPI: Patient is a 76-year-old male who presents to the emergency department via EMS with chief complaint of hypotension. EMS reports that while he was in their care he had a initial blood pressure in the 80s systolic which increased during transport to the 100s. Initial blood pressure in the emergency department was found to be in the mid 70s systolic. A complete history is unable to be ob tained due to patient's current mental status. He is per EMS at his baseline. During conversing with the patient he reports he has felt unwell for the past 24 hours however he is unable to specify beyond that. He reports no fever no chest pain no diarrhea no dysuria. The patient has some minor skin breakdown on his bilateral heels however it does not appear to be infected. The patient's back is clear of any pressure wounds. He is a full code according to paperwork received from [facility] Review of Systems: Review of Systems: Constitutional: Denies fever or chills; reports generalized malaise x24 hours Eyes: Denies redness or eye pain HENT: Denies nasal congestion or sore throat Respiratory: Denies cough or shortness of breath Cardiovascular: Denies chest pain or palpitations GI: Denies abdominal pain, nausea, or vomiting : Denies dysuria or hematuria Musculoskeletal: Denies back pain or joint pain Integument: Denies rash or skin lesions Neurologic: Denies headache, focal weakness or sensory changes Complete systems were reviewed and found to be within normal limits, except as documented in this note. Heart Score: C/O Chest Pain: N/A Family History: Family History: Unable to obtain family history Current Medications: Current Medications Medications (Trade) Dose Ordered Sig/Bryson Start Time Stop Time Status Last Admin Dose Admin Sodium Chloride 1,000 ml @ 1,000 mls/hr 1X ONCE 09/17/21 13:00 09/17/21 13:59 Allergies: Allergies: Allergies Coded Allergies Type Severity Reaction Last Updated Verified Penicillins Allergy Severe 7/20/19 Yes levofloxacin Allergy Intermediate 01/23/16 Yes Physical Exam: PE: Constitutional: no apparent acute distress, non-toxic appearance, HENT: Normocephalic, atraumatic Eyes: PERRL, conjunctiva normal, no discharge Neck: Normal range of motion, no tenderness, supple, no JVD, trachea midline Lungs & Thorax: No respiratory distress, normal chest wall excursion bilaterally, lungs clear to auscultation in all singer Cardiovascular: +1 peripheral pulses, regular rate and rhythm, Abdomen: Soft, no tenderness Skin: Warm, dry, no erythema, no rash, pallor Back: No tenderness, no CVA tenderness Extremities: No tenderness, ROM intact, no pedal edema, minor skin breakdown on bilateral posterior heels. Bilateral pill-rolling tremors Neurologic: Alert and orientated to person, per EMS at baseline, occasionally able to respond to questions Psychologic: Affect normal, judgment normal Current Patient Data: Vital Signs: Vital Signs Date Time Temp Pulse Resp B/P (MAP) Pulse Ox O2 Delivery O2 Flow Rate FiO2 09/17/21 12:35 97.3 81 17 77/46 (56) 94 Room Air 97.3 EKG: EKG: [] Radiology/Procedures: Radiology/Procedures: [] Impression: PROCEDURE: CT HEAD AND CERVICAL SPINE WO EXAM: CT HEAD WITHOUT IV CONTRAST CLINICAL HISTORY: Reason: near syncope, pain / Spl. Instructions: / History: COMPARISON: None. TECHNIQUE: Routine CT of the head without contrast. Soft tissues and bone windows were reviewed. PQRS compliance statement - One or more of the following individualized dose reduction techniques were utilized for this study: 1. Automated exposure control 2. Adjustment of the mA and/or kV according to patient size 3. Use of iterative reconstruction technique FINDINGS: There is no evidence of hemorrhage, mass or extra-axial fluid collection. Allison-white differentiation is maintained with no evidence of edema. Subcortical, periventricular as well as deep white matter foci of hypoattenuation likely changes of chronic small vessel disease. There is no mass effect or shift of the intracranial structures. The ventricles and cerebral sulci are prominent for the patients stated age consistent with generalized cerebral volume loss. The cerebellum and brainstem are unremarkable. The calvarium demonstrates no evidence of fracture or focal lesion. There is normal aeration of the visualized paranasal sinuses and mastoid air cells. The visualized portions of the orbits are normal. Atherosclerotic calcifications of the intracranial internal carotid and vertebral arteries is seen. IMPRESSION: No evidence for acute intracranial process. Right matter changes likely changes of chronic small vessel disease. EXAM: CT CERVICAL SPINE WITHOUT IV CONTRAST CLINICAL HISTORY: Reason: near syncope, pain / Spl. Instructions: / History: COMPARISON: None available. TECHNIQUE: Helical CT of the cervical spine was performed. Axial, coronal and sagittal reformatted images were also performed. PQRS compliance statement - One or more of the following individualized dose reduction techniques were utilized for this study: 1. Automated exposure control 2. Adjustment of the mA and/or kV according to patient size 3. Use of iterative reconstruction technique FINDINGS: Vertebral body heights are preserved. No spondylolisthesis. Straightening of the normal cervical lordosis. Mild C4-5, moderate C5-6 and severe C6-7, C7-T1 disc height loss. Cervical ribs are seen at C7 bilaterally. IMPRESSION: 1. Multilevel spondylosis as above 2. Negative acute fracture or subluxation. 3. Incidentally noted cervical ribs bilaterally. Electronically signed by: Bear Loco MD (09/17/2021 1:46 PM) [id number] PROCEDURE: PORTABLE CHEST 1V EXAM: AP View of the chest DATE: 09/17/2021 1:08 PM INDICATION: Reason: weakness / Spl. Instructions: / History: COMPARISON: 02/05/21 07/15/2021 FINDINGS: The heart is not enlarged. Mediastinal and hilar contours are normal. Minimal patchy opacities left lung base, improved compared to 07/15/2021. No pleural effusion or pneumothorax. IMPRESSION: Minimal patchy opacities left lung base, improved compared to 07/15/2021, possibly residuals of prior process. Developing consolidation could also have this appearance. Otherwise no focal consolidation. Electronically signed by: Bear Loco MD (09/17/2021 2:12 PM) [email or web address] Course & Med Decision Making: Course & Med Decision Making Pertinent Labs and Imaging studies reviewed. (See chart for details) 76-year-old male presents to the emergency department with complaint of hypotension via EMS from a intermediate facility upon arrival patient was hypotensive in the mid 70s to low 80s. IV access was established, and a fluid bolus was administered to the patient. Unable to obtain a complete history due to patient's dementia and mental status. Plan for CT head, neck, chest x-ray, IV access, IV fluids, blood work, straight cath for a UA. Initial results consistent with a UTI. Plan for administration of antibiotics and admission to the hospital for further management. Patient requiring admission for further evaluation and treatment. Discussed with Dr. Corral (hospitalist) who is in agreement with admission. Discussed findings and plan with patient, who acknowledges understanding and agreement. Dragon Disclaimer: Dragon Disclaimer: This electronic medical record was generated, in whole or in part, using a voice recognition dictation system. Departure Departure Impression: Primary Impression: Hypotension Qualified Codes: I95.9 - Hypotension, unspecified Additional Impressions: UTI (urinary tract infection) Qualified Codes: N30.00 - Acute cystitis without hematuria Lactic acidosis Acute renal insufficiency Disposition: ADMITTED INPATIENT Admitting Physician: Jann Jackman Condition: GUARDED Referrals: MODESTO WU MD (PCP) Critical Care Time Critical care time was 30 minutes which includes time at bedside, spent in discussion of patient's care with specialists and/or family members, with interpretation of laboratory and/or radiological studies and is exclusive of procedures. RUPAL GRADY DO Sep 17, 2021 13:13
[2021-09-17 13:21] LABS: BASO # 0.1 x10^3/uL (0.0-0.2); BASO % 1 % (0-3); EOS # 0.7 x10^3/uL (0.0-0.7); EOS % 7 % (0-3); HEMATOCRIT 36.1 % (39.0-53.0); HEMOGLOBIN 11.7 g/dL (13.0-17.5); LYMPH # 1.4 x10^3/uL (1.0-4.8); LYMPH % 15 % (24-48); MEAN CORPUSCULAR HEMOGLOBIN 29 pg (25-35); MEAN CORPUSCULAR HGB CONC 33 g/dL (31-37); MEAN CORPUSCULAR VOLUME 88 fL (79-100); MONO # 0.9 x10^3/uL (0.0-1.1); MONO % 9 % (0-9); NEUT # 6.8 x10^3/uL (1.8-7.7); NEUT % 69 % (31-73); PLATELET COUNT 389 x10^3/uL (140-400); RED BLOOD COUNT 4.11 x10^6/uL (4.30-5.70); RED CELL DISTRIBUTION WIDTH 14.7 % (11.5-14.5); WHITE BLOOD COUNT 9.9 x10^3/uL (4.0-11.0)
[2021-09-17 13:30] LABS: BILIRUBIN,URINE SMALL (NEG); CLARITY,URINE CLOUDY; COLOR,URINE AMBER; NITRITE,URINE NEGATIVE (NEG); PROTEIN,URINE 30 mg/dL (NEG-TRACE); UROBILINOGEN,URINE 0.2 mg/dL (0.2 mg/dL)
[2021-09-17 13:45] LABS: BACTERIA,URINE FEW /HPF (0-FEW); RBC,URINE 0 /HPF (0-2); WBC,URINE TNTC /HPF (0-4)
[2021-09-17 13:47] LABS: CALCIUM 8.9 mg/dL (8.5-10.1); CREATININE 2.6 mg/dL (0.7-1.3); GFR 24.1; POTASSIUM 4.4 mmol/L (3.5-5.1)
--- NOTE | 2021-09-17 13:49 | RAD ---
EXAM: CT HEAD WITHOUT IV CONTRAST CLINICAL HISTORY: Reason: near syncope, pain / Spl. Instructions: / History: COMPARISON: None. TECHNIQUE: Routine CT of the head without contrast. Soft tissues and bone windows were reviewed. PQRS compliance statement - One or more of the following individualized dose reduction techniques wer e utilized for this study: 1. Automated exposure control 2. Adjustment of the mA and/or kV according to patient size 3. Use of iterative reconstruction technique FINDINGS: There is no evidence of hemorrhage, mass or extra-axial fluid collection. Allison-white differentiation is maintained with no evidence of edema. Subcortical, periventricular as w ell as deep white matter foci of hypoattenuation likely changes of chronic small vessel disease. There is no mass effect or shift of the intracranial structures. The ventricles and cerebral sulci are prominent for the patients stated age consistent with generaliz ed cerebral volume loss. The cerebellum and brainstem are unremarkable. The calvarium demonstrates no evidence of fracture or focal lesion. There is normal aeration of the visualized paranasal sinuses and mastoid air cells. The visualized portions of the orbits are normal. Atherosclerotic calcifications of the intracranial internal carotid and vertebral arteries is seen. IMPRESSION: No evidence for acute intracranial process. Right matter changes likely changes of chronic small vessel disease. EXAM: CT CERVICAL SPINE WITHOUT IV CONTRAST CLINICAL HISTORY: Reason: near syncope, pain / Spl. Instructions: / History: COMPARISON: None available. TECHNIQUE: Helical CT of the cervical spine was performed. Axial, coronal and sagittal reformatted im ages were also performed. PQRS compliance statement - One or more of the following individualized dose reduction techniques wer e utilized for this study: 1. Automated exposure control 2. Adjustment of the mA and/or kV according to patient size 3. Use of iterative reconstruction technique FINDINGS: Vertebral body heights are preserved. No spondylolisthesis. Straightening of the normal cervical lordosis. Mild C4-5, moderate C5-6 and severe C6-7, C7-T1 disc height loss. Cervical ribs are seen at C7 bilate rally. IMPRESSION: 1. Multilevel spondylosis as above 2. Negative acute fracture or subluxation. 3. Incidentally noted cervical ribs bilaterally. Electronically signed by: Bear Loco MD (09/17/2021 1:46 PM) [facility]
[2021-09-17 13:50] LABS: ALBUMIN 3.4 g/dL (3.4-5.0); ALBUMIN/GLOBULIN RATIO 0.9 (1.0-1.7); MAGNESIUM 2.9 mg/dL (1.8-2.4); TOTAL BILIRUBIN 0.2 mg/dL (0.2-1.0); TOTAL PROTEIN 7.4 g/dL (6.4-8.2)
[2021-09-17] MEDS ORDERED: ASPIRIN ENTERIC COATED 325 MG TABLET.DR. PO ONE (14:00)
[2021-09-17] MEDS ORDERED: fentaNYL PF VIAL 100 MCG/2 ML VIAL IVP PRN (14:00)
[2021-09-17] MEDS ORDERED: ACETAMINOPHEN 325 MG TABLET. PO PRN (14:00)
--- NOTE | 2021-09-17 14:14 | RAD ---
EXAM: AP View of the chest DATE: 09/17/2021 1:08 PM INDICATION: Reason: weakness / Spl. Instructions: / History: COMPARISON: 02/05/21 07/15/2021 FINDINGS: The heart is not enlarged. Mediastinal and hilar contours are normal. Minimal patchy opacities left lung base, improved compared to 07/15/2021. No pleural effusion or pneumothorax. IMPRESSION: Minimal patchy opacities left lung base, improved compared to 07/15/2021, possibly residuals of prior process. Developing consolidation could also have this appearance. Otherwise no focal consolidation. Electronically signed by: Bear Loco MD (09/17/2021 2:12 PM) [email or web address]
[2021-09-17] MEDS ORDERED: cefTRIAXone IV Push 1 GM VIAL. IVP ONE (14:30)
[2021-09-17] MEDS ORDERED: INSULIN LISPRO 300 UNITS/3 ML VIAL. SQ SCH (17:00)
--- NOTE | 2021-09-17 18:53 | EKG ---
[facility] [address] [place] [address] Test Date: 2021-09-17 Test Time: 13:31:24 Pat Name: BETH BOYD Department: Room: ED HOLD 17 Gender: M Liaison Officer: : 1945 Requested By: RUPAL GRADY Order Number: [id number] Reading MD: Graeme Sutherland MD Measurements Intervals Dike Rate: 78 P: 59 CO: 156 QRS: 58 QRSD: 84 T: 54 QT: 374 QTc: 430 Interpretive Statements SR BASELINE ARTIFACT NON-SPECIFIC ST/T CHANGES Electronically Signed On 09-21-2021 21:41:32 SENIOR NET DEVELOPER by Graeme Sutherland MD
[2021-09-17 23:14] VITALS: BP 122/53
[2021-09-18 03:00] VITALS: BP 140/58
[2021-09-18 07:00] VITALS: BP 118/51
[2021-09-18] MEDS: INSULIN LISPRO 300 UNITS/3 ML VIAL. SQ SCH ×3 (07:30→16:30)
[2021-09-18] MEDS ORDERED: INSULIN LISPRO 300 UNITS/3 ML VIAL. SQ ONE (07:30)
[2021-09-18] MEDS: IV NORMAL SALINE 1000ML BAG 1,000 ML IV SCH ×2 (08:15→21:35)
[2021-09-18] MEDS ORDERED: POLYETHYLENE GLYCOL 3350 17 GM PACKET. PO PRN (08:15)
--- NOTE | 2021-09-18 08:23 | PDOC ---
Provider Note Date of Service: DATE: 09/18/21 TIME: 08:21 Provider Note [id number] Justifications for Admission Other Justification KAM WHITTAKER MD Sep 18, 2021 08:23
[2021-09-18] MEDS: FERROUS SULFATE 325 MG TABLET. PO SCH ×2 (08:30→16:32)
[2021-09-18] MEDS: CARBIDOPA/LEVODOPA CR 25/100MG TABLET.SA. PO SCH ×3 (09:00→22:11)
[2021-09-18] MEDS: GABAPENTIN 100 MG CAPSULE. PO SCH ×3 (09:00→22:11)
[2021-09-18] MEDS: ALPRAZolam 0.25 MG TABLET PO SCH ×3 (09:00→22:11)
[2021-09-18] MEDS ORDERED: INSULIN GLARGINE SYRINGE. SQ SCH (09:00)
--- NOTE | 2021-09-18 09:53 | HP ---
DATE OF SERVICE: 09/18/2021 ADMIT DATE: 09/17/2021 CHIEF COMPLAINT: Weakness and fatigue and low blood pressure. HISTORY OF PRESENT ILLNESS: A 76-year-old male with a history of Parkinson's disease and insulin-dependent diabetes, came in with weakness, fatigue and apparently a low-grade fever. He was found to have urinary tract infection and has been given a dose of Rocephin and IV fluids overnight and his blood pressures improved. Blood sugar was normal on admission but now is up to 500 as he has not had insulin for about 24 hours. PAST HISTORY: He was here at [facility] about 2 months ago for the same problem. ALLERGIES: HE HAS AN ALLERGY TO PENICILLIN AND LEVOFLOXACIN. MEDICATIONS: He is on multiple meds and low dose insulin at home. Last hemoglobin A1c that I have available was 2019 which was 8.2. SOCIAL HISTORY: He says he lives alone, nonsmoker, nondrinker, no family in the area. FAMILY HISTORY: Unremarkable. REVIEW OF SYSTEMS: No other complaints. PHYSICAL EXAMINATION: ENT: Mucosa mildly dry, otherwise generally unremarkable. NECK: Revealed no masses, nodes or bruits. LUNGS: Clear without tachypnea. CARDIOVASCULAR: Regular rate. No irregular beat or murmur. ABDOMEN: Soft, benign and nontender. EXTREMITIES: Decreased skin turgor, reasonably good pedal pulses bilaterally. NEUROLOGIC: Pill rolling tremor in both upper extremities consistent with Parkinson's disease. He has mild facial akinesia and gait was not tested. Arms and legs can move equally. Mental status appears to be intact as well. ASSESSMENT: Urinary tract infection, hypotension secondary to prerenal azotemia and stable Parkinson's disease and diabetes. PLAN: We will increase the insulin and check A1c. Continue IV saline and Rocephin and hold her lisinopril for now. TRAVIS/BALWINDER DR: Alejandrina TID: [id number]
[2021-09-18] MEDS: LEVOTHYROXINE 75 MCG TABLET PO SCH ×2 (10:30→16:31)
[2021-09-18 11:00] VITALS: BP 132/65
[2021-09-18] MEDS: METOCLOPRAMIDE 5 MG TABLET. PO SCH ×3 (11:30→22:13)
[2021-09-18 15:00] VITALS: BP 140/66
[2021-09-18] MEDS ORDERED: ONDANSETRON PF 4 MG/2 ML VIAL. IVP PRN (16:30)
[2021-09-18] MEDS: CYANOCOBALAMIN (VITAMIN B-12) 1,000 MCG TABLET. PO SCH (16:31)
[2021-09-18] MEDS: ASPIRIN ENTERIC COATED 81 MG TABLET.DR. PO SCH (16:31)
[2021-09-18] MEDS: TIMOLOL 0.5% OPHTH SOLUTION 5ML BOTTLE. OU SCH ×2 (16:32→22:12)
[2021-09-18] MEDS: CITALOPRAM 20 MG TABLET. PO SCH (16:32)
[2021-09-18] MEDS: SENNOSIDES/DOCUSATE 8.6/50MG TABLET. PO SCH ×2 (16:32→19:58)
[2021-09-18] MEDS: BRIMONIDINE 0.2% OPHTH SOLUTION 5ML BOTTLE. OU SCH ×2 (16:33→22:12)
[2021-09-18] MEDS: cefTRIAXone IV Push 1 GM VIAL. IVP SCH (16:37)
--- NOTE | 2021-09-18 17:20 | NUR ---
PATIENT REFUSED DINNER, INSULIN HELD AT THIS TIME.
--- NOTE | 2021-09-18 17:41 | NUR ---
Wound/Ostomy Care Wound Type/Assessment: Wound care consult for bilateral heel DFUs, left lateral ankle DFU and coccyx/buttocks PU stage II. Pt known to wound care from previous admissions and pt is being follow by our VENDING ROUTE SERVICER at his facility. Pt c/o pain when cleaning his wounds. All wound cleansed, measured and pictured. Pt's brief was changed d/t BM. No other wounds found on head to toe skin assessment. Treatment Recommendations/Plan: Cleanse all wounds with wound wash or saline. Left heel and left lateral ankle: cover with contact layer and foam, change q2-3 days. Right heel: cover with foam. Buttocks/Coccyx: apply calazime cream bid and prn Education provided: Pt educated on offloading heels while in bed and turning q2h Offloading surface/device: heel medix boots ordered, purple wedge, pillows Recommended Referrals/Tests: n/a Discharge Recommendations for dressings: same as above
[2021-09-18] MEDS: COLESTIPOL HCL 1 GM TABLET PO SCH (18:47)
[2021-09-18 19:00] VITALS: BP 110/45
[2021-09-18] MEDS: DEXTROSE 50% 25 GM / 50ML DISP.SYRIN. IV PRN (21:30)
[2021-09-18] MEDS: ATORVASTATIN CALCIUM 20 MG TABLET PO SCH (22:11)
[2021-09-18] MEDS: DONEPEZIL HCL 10 MG TABLET. PO SCH (22:11)
[2021-09-18] MEDS: LACTOBACILLUS RHAMNOSUS GG 1 CAPSULE. PO SCH (22:11)
[2021-09-18] MEDS: LATANOPROST 0.005% OPHTH SOLUTION 2.5ML BOTTLE. OU SCH (22:11)
[2021-09-18 23:00] VITALS: BP 106/47
[2021-09-19 00:17] LABS: HEMOGLOBIN A1C 8.3 % (4.8-5.6)
[2021-09-19 03:00] VITALS: BP 110/52
[2021-09-19 04:56] LABS: CALCIUM 8.6 mg/dL (8.5-10.1); CREATININE 0.9 mg/dL (0.7-1.3); GFR 81.8; POTASSIUM 3.5 mmol/L (3.5-5.1)
[2021-09-19] MEDS: DEXTROSE 50% 25 GM / 50ML DISP.SYRIN. IV PRN (05:01)
[2021-09-19] MEDS: COLESTIPOL HCL 1 GM TABLET PO SCH ×2 (06:15→17:30)
[2021-09-19 07:00] VITALS: BP 108/50
[2021-09-19] MEDS: INSULIN LISPRO 300 UNITS/3 ML VIAL. SQ SCH ×3 (07:45→17:33)
--- NOTE | 2021-09-19 07:52 | PN ---
DATE: 09/19/2021 DAILY PROGRESS NOTE LOCATION: He is in room 582. SUBJECTIVE: This 76-year-old male admitted with hypotension, acute renal and acute kidney injury, lactic acidosis from the fdc setting. He is still not at his normal baseline status and unable to participate in helping me with his symptomatology. He was hypoglycemic this morning requiring resuscitation. Insulin doses have been increased because of a high sugar and he is very labile and will go back to his regular fdc doses as any big increase in this will cause hypoglycemia. OBJECTIVE: VITAL SIGNS: Stable. He is afebrile. Initial urine culture was negative despite too numerous to count white cells and large leukocyte esterase. GENERAL: He does remain mental status less than his normal. He does arouse, states he does not feel well, but cannot be more specific which is not like him. CHEST: Clear. HEART: Regular. ABDOMEN: Benign. LABORATORY DATA: Creatinine is down to 0.9 this morning from 2.6. Lactic acidosis is resolved. He has ongoing Rocephin. I am going to continue ongoing IV fluids and await final blood cultures and continue Rocephin in the meantime as this what appeared to be most likely an infectious process. IMPRESSION: 1. Hypotension, improved. 2. Acute kidney injury, resolved. 3. Lactic acidosis, resolved. 4. Brittle diabetes with hypoglycemia. PLAN: As outlined above. Continue supportive care. ARTURO HOLDEN: KULDEEP/leatha TID: [id number]
[2021-09-19] MEDS: IV NORMAL SALINE 1000ML BAG 1,000 ML IV SCH (10:55)
[2021-09-19 11:00] VITALS: BP 131/50
[2021-09-19] MEDS: ASPIRIN ENTERIC COATED 81 MG TABLET.DR. PO SCH (11:15)
[2021-09-19] MEDS: ALPRAZolam 0.25 MG TABLET PO SCH ×3 (11:15→21:54)
[2021-09-19] MEDS: LACTOBACILLUS RHAMNOSUS GG 1 CAPSULE. PO SCH ×2 (11:15→21:48)
[2021-09-19] MEDS: IV 1/2 NORMAL SALINE 1,000 ML IV SCH ×2 (11:15→22:00)
[2021-09-19] MEDS: CARBIDOPA/LEVODOPA CR 25/100MG TABLET.SA. PO SCH ×3 (11:15→21:48)
[2021-09-19] MEDS: METOCLOPRAMIDE 5 MG TABLET. PO SCH ×4 (11:15→21:48)
[2021-09-19] MEDS: SENNOSIDES/DOCUSATE 8.6/50MG TABLET. PO SCH ×2 (11:16→21:00)
[2021-09-19] MEDS: CYANOCOBALAMIN (VITAMIN B-12) 1,000 MCG TABLET. PO SCH (11:16)
[2021-09-19] MEDS: FERROUS SULFATE 325 MG TABLET. PO SCH ×2 (11:16→17:30)
[2021-09-19] MEDS: GABAPENTIN 100 MG CAPSULE. PO SCH ×3 (11:16→21:48)
[2021-09-19] MEDS: CITALOPRAM 20 MG TABLET. PO SCH (11:18)
[2021-09-19] MEDS: TIMOLOL 0.5% OPHTH SOLUTION 5ML BOTTLE. OU SCH ×2 (11:19→21:47)
[2021-09-19] MEDS: BRIMONIDINE 0.2% OPHTH SOLUTION 5ML BOTTLE. OU SCH ×2 (11:19→21:46)
[2021-09-19] MEDS: INSULIN GLARGINE SYRINGE. SQ SCH (11:36)
[2021-09-19 15:00] VITALS: BP 116/71
[2021-09-19] MEDS: cefTRIAXone IV Push 1 GM VIAL. IVP SCH (16:16)
[2021-09-19 19:00] VITALS: BP 144/62
[2021-09-19] MEDS: LATANOPROST 0.005% OPHTH SOLUTION 2.5ML BOTTLE. OU SCH (21:47)
[2021-09-19] MEDS: ATORVASTATIN CALCIUM 20 MG TABLET PO SCH (21:48)
[2021-09-19] MEDS: DONEPEZIL HCL 10 MG TABLET. PO SCH (21:48)
[2021-09-19 23:00] VITALS: BP 145/61
[2021-09-20] MEDS: IV NORMAL SALINE 1000ML BAG 1,000 ML IV SCH (00:15)
[2021-09-20 03:17] VITALS: BP 132/60
[2021-09-20 05:51] LABS: CALCIUM 8.4 mg/dL (8.5-10.1); CREATININE 0.7 mg/dL (0.7-1.3); GFR 109.4; POTASSIUM 3.9 mmol/L (3.5-5.1)
[2021-09-20] MEDS: METOCLOPRAMIDE 5 MG TABLET. PO SCH ×4 (06:53→20:16)
[2021-09-20] MEDS: LEVOTHYROXINE 75 MCG TABLET PO SCH (06:53)
[2021-09-20] MEDS: COLESTIPOL HCL 1 GM TABLET PO SCH ×2 (06:54→17:09)
[2021-09-20] MEDS: IV 1/2 NORMAL SALINE 1,000 ML IV SCH ×2 (06:55→12:16)
[2021-09-20 07:00] VITALS: BP 155/75
[2021-09-20] MEDS: INSULIN LISPRO 300 UNITS/3 ML VIAL. SQ SCH ×3 (07:30→16:30)
[2021-09-20] MEDS: TIMOLOL 0.5% OPHTH SOLUTION 5ML BOTTLE. OU SCH ×2 (08:44→20:14)
[2021-09-20] MEDS: CITALOPRAM 20 MG TABLET. PO SCH (08:45)
[2021-09-20] MEDS: ALPRAZolam 0.25 MG TABLET PO SCH ×3 (08:45→20:15)
[2021-09-20] MEDS: BRIMONIDINE 0.2% OPHTH SOLUTION 5ML BOTTLE. OU SCH ×2 (08:45→20:16)
[2021-09-20] MEDS: CYANOCOBALAMIN (VITAMIN B-12) 1,000 MCG TABLET. PO SCH (08:45)
[2021-09-20] MEDS: ASPIRIN ENTERIC COATED 81 MG TABLET.DR. PO SCH (08:45)
[2021-09-20] MEDS: SENNOSIDES/DOCUSATE 8.6/50MG TABLET. PO SCH ×2 (08:45→20:17)
[2021-09-20] MEDS: LACTOBACILLUS RHAMNOSUS GG 1 CAPSULE. PO SCH ×2 (08:45→20:16)
[2021-09-20] MEDS: GABAPENTIN 100 MG CAPSULE. PO SCH ×3 (08:45→20:16)
[2021-09-20] MEDS: FERROUS SULFATE 325 MG TABLET. PO SCH ×2 (08:45→17:08)
[2021-09-20] MEDS: CARBIDOPA/LEVODOPA CR 25/100MG TABLET.SA. PO SCH ×3 (08:45→20:16)
[2021-09-20] MEDS: INSULIN GLARGINE SYRINGE. SQ SCH (08:46)
[2021-09-20] MEDS: ACETAMINOPHEN 325 MG TABLET. PO PRN ×2 (10:08→14:52)
[2021-09-20 11:00] VITALS: BP 147/74
[2021-09-20] MEDS: cefTRIAXone IV Push 1 GM VIAL. IVP SCH (15:18)
[2021-09-20 16:50] VITALS: BP 131/64
[2021-09-20] MEDS: DEXTROSE 50% 25 GM / 50ML DISP.SYRIN. IV PRN (17:45)
[2021-09-20 19:00] VITALS: BP_SYST 127; BP_SYST 145; BP_DIAS 54; BP_DIAS 91
--- NOTE | 2021-09-20 19:33 | PN ---
DATE: 09/20/2021 LOCATION: He is in room 582. SUBJECTIVE: This 76-year-old male admitted with hypotension and acute renal injury, lactic acidosis from intermediate setting. He was felt to be fairly dehydrated. He was quite hypoglycemic yesterday morning. Insulin doses were pushed back to his prehospital levels with some slight hypoglycemia again this morning as his sugars were normally very labile and this is not an unusual amount for him. He still is not mentally back to his baseline. He does recognize me, but thinks his mother is leaving this morning. OBJECTIVE: VITAL SIGNS: Stable. He is afebrile. Blood pressures are much better. Urine cultures are negative. Blood cultures are negative to date. CHEST: Clear. HEART: Regular. ABDOMEN: Benign. IMPRESSION: 1. Hypotension, improved. 2. Acute kidney injury, resolved. 3. Lactic acidosis, resolved. 4. Brittle diabetes with hypoglycemia. 5. Suspect infectious etiology, but undefined at this point in time. PLAN: Continue present antibiotics and supportive care. FATEMEH DR: Santiago TID: [id number]
[2021-09-20] MEDS: LATANOPROST 0.005% OPHTH SOLUTION 2.5ML BOTTLE. OU SCH (20:16)
[2021-09-20] MEDS: DONEPEZIL HCL 10 MG TABLET. PO SCH (20:16)
[2021-09-20] MEDS: ATORVASTATIN CALCIUM 20 MG TABLET PO SCH (20:16)
[2021-09-20 23:00] VITALS: BP 129/65
[2021-09-21] MEDS: COLESTIPOL HCL 1 GM TABLET PO SCH ×2 (06:17→18:15)
[2021-09-21] MEDS: METOCLOPRAMIDE 5 MG TABLET. PO SCH ×4 (06:17→21:59)
[2021-09-21] MEDS: LEVOTHYROXINE 75 MCG TABLET PO SCH (06:17)
[2021-09-21] MEDS: IV 1/2 NORMAL SALINE 1,000 ML IV SCH ×2 (06:22→22:01)
[2021-09-21 07:00] VITALS: BP 124/67
[2021-09-21] MEDS: SENNOSIDES/DOCUSATE 8.6/50MG TABLET. PO SCH ×2 (09:00→21:00)
[2021-09-21] MEDS: GABAPENTIN 100 MG CAPSULE. PO SCH ×3 (09:32→22:00)
[2021-09-21] MEDS: CYANOCOBALAMIN (VITAMIN B-12) 1,000 MCG TABLET. PO SCH (09:33)
[2021-09-21] MEDS: ALPRAZolam 0.25 MG TABLET PO SCH ×3 (09:33→21:58)
[2021-09-21] MEDS: ASPIRIN ENTERIC COATED 81 MG TABLET.DR. PO SCH (09:33)
[2021-09-21] MEDS: CARBIDOPA/LEVODOPA CR 25/100MG TABLET.SA. PO SCH ×3 (09:33→21:59)
[2021-09-21] MEDS: FERROUS SULFATE 325 MG TABLET. PO SCH ×2 (09:33→18:15)
[2021-09-21] MEDS: LACTOBACILLUS RHAMNOSUS GG 1 CAPSULE. PO SCH ×2 (09:33→22:00)
[2021-09-21] MEDS: CITALOPRAM 20 MG TABLET. PO SCH (09:34)
[2021-09-21] MEDS: TIMOLOL 0.5% OPHTH SOLUTION 5ML BOTTLE. OU SCH ×2 (09:34→21:57)
[2021-09-21] MEDS: BRIMONIDINE 0.2% OPHTH SOLUTION 5ML BOTTLE. OU SCH ×2 (09:34→21:57)
[2021-09-21] MEDS: INSULIN GLARGINE SYRINGE. SQ SCH (09:41)
[2021-09-21] MEDS: INSULIN LISPRO 300 UNITS/3 ML VIAL. SQ SCH ×3 (09:41→16:30)
[2021-09-21 11:00] VITALS: BP 126/58
[2021-09-21] MEDS: cefTRIAXone IV Push 1 GM VIAL. IVP SCH (14:11)
[2021-09-21 15:00] VITALS: BP 115/57
[2021-09-21 19:00] VITALS: BP 168/70
--- NOTE | 2021-09-21 20:26 | PN ---
DATE: 09/21/2021 DAILY PROGRESS NOTE LOCATION: He is in room 582. SUBJECTIVE: This 76[facility], admitted with hypotension, acute renal failure, and lactic acidosis. He was felt to be fairly dehydrated. He has had some significant hypoglycemia since admission. Insulin has been backed off to his prehospital levels and he was a little bit low at suppertime yesterday. He still is not mentally back to his baseline, but voices no significant complaints this morning after yesterday feeling bad all over, but cannot be more specific. OBJECTIVE: VITAL SIGNS: Stable. He is afebrile. Blood pressures are much better. CHEST: Clear. HEART: Regular. ABDOMEN: Benign. LABORATORY DATA: Urine cultures negative. Blood cultures negative to date. ASSESSMENT: 1. Hypotension, improved. 2. Acute kidney injury, resolved. 3. Lactic acidosis, resolved. 4. Brittle Diabetes. 5. Suspected infectious etiology, but undefined at this point. PLAN: Continue present antibiotics and supportive care and wait for clearing as he definitely is slowly improving. KISHAN/MIN DR: Santiago TID: [id number]
[2021-09-21] MEDS: LATANOPROST 0.005% OPHTH SOLUTION 2.5ML BOTTLE. OU SCH (21:57)
[2021-09-21] MEDS: DONEPEZIL HCL 10 MG TABLET. PO SCH (21:59)
[2021-09-21] MEDS: ATORVASTATIN CALCIUM 20 MG TABLET PO SCH (22:00)
[2021-09-21 23:00] VITALS: BP 178/76
[2021-09-22] MEDS: COLESTIPOL HCL 1 GM TABLET PO SCH ×2 (06:29→18:13)
[2021-09-22] MEDS: LEVOTHYROXINE 75 MCG TABLET PO SCH (06:29)
[2021-09-22 07:00] VITALS: BP 161/58
--- NOTE | 2021-09-22 08:08 | PN ---
DATE: 09/22/2021 LOCATION: He is in room 582. SUBJECTIVE: This 76-[facility]-old shelter resident admitted with hypotension, acute renal failure, lactic acidosis. He was felt to be fairly dehydrated. He has had no significant hypoglycemia and fairly good sugars over the last 24 hours. He is becoming daily a little more awake and alert, feels just extremely weak and cannot be any more specific. OBJECTIVE: VITAL SIGNS: Stable. He is afebrile. Blood pressures are better. CHEST: Clear. HEART: Regular. ABDOMEN: Benign. LABORATORY DATA: Cultures remain negative to date. He remains on IV antibiotics for presumed infectious etiology, currently undefined. ASSESSMENT: 1. Hypotension, improved. 2. Acute kidney injury, resolved. 3. Lactic acid, resolved. 4. Brittle diabetes. PLAN: We will discontinue IV fluids today and likely will be on his own for oral intake. Continue antibiotics at least through another day. REUBEN DR: Santiago TID: [id number]
[2021-09-22] MEDS: SENNOSIDES/DOCUSATE 8.6/50MG TABLET. PO SCH ×2 (09:00→21:00)
[2021-09-22] MEDS: GABAPENTIN 100 MG CAPSULE. PO SCH ×3 (09:50→22:05)
[2021-09-22] MEDS: CITALOPRAM 20 MG TABLET. PO SCH (09:50)
[2021-09-22] MEDS: CYANOCOBALAMIN (VITAMIN B-12) 1,000 MCG TABLET. PO SCH (09:50)
[2021-09-22] MEDS: ASPIRIN ENTERIC COATED 81 MG TABLET.DR. PO SCH (09:51)
[2021-09-22] MEDS: FERROUS SULFATE 325 MG TABLET. PO SCH ×2 (09:51→18:14)
[2021-09-22] MEDS: ALPRAZolam 0.25 MG TABLET PO SCH ×3 (09:51→22:05)
[2021-09-22] MEDS: LACTOBACILLUS RHAMNOSUS GG 1 CAPSULE. PO SCH ×2 (09:51→22:04)
[2021-09-22] MEDS: METOCLOPRAMIDE 5 MG TABLET. PO SCH ×4 (09:51→22:05)
[2021-09-22] MEDS: INSULIN GLARGINE SYRINGE. SQ SCH (09:56)
[2021-09-22] MEDS: INSULIN LISPRO 300 UNITS/3 ML VIAL. SQ SCH ×3 (09:57→18:18)
[2021-09-22 10:45] VITALS: BP 143/51
[2021-09-22] MEDS: TIMOLOL 0.5% OPHTH SOLUTION 5ML BOTTLE. OU SCH ×2 (12:44→22:08)
[2021-09-22] MEDS: CARBIDOPA/LEVODOPA CR 25/100MG TABLET.SA. PO SCH ×3 (12:44→22:05)
[2021-09-22] MEDS: BRIMONIDINE 0.2% OPHTH SOLUTION 5ML BOTTLE. OU SCH ×2 (12:44→22:08)
[2021-09-22 15:00] VITALS: BP 133/59
[2021-09-22] MEDS: cefTRIAXone IV Push 1 GM VIAL. IVP SCH (15:10)
[2021-09-22 19:00] VITALS: BP 140/64
[2021-09-22] MEDS: LATANOPROST 0.005% OPHTH SOLUTION 2.5ML BOTTLE. OU SCH (22:03)
[2021-09-22] MEDS: DONEPEZIL HCL 10 MG TABLET. PO SCH (22:05)
[2021-09-22] MEDS: ATORVASTATIN CALCIUM 20 MG TABLET PO SCH (22:05)
[2021-09-22 22:46] VITALS: BP 115/70
[2021-09-23 02:36] VITALS: BP 127/58
[2021-09-23 04:07] LABS: BASO # 0.1 x10^3/uL (0.0-0.2); BASO % 1 % (0-3); EOS # 0.7 x10^3/uL (0.0-0.7); EOS % 9 % (0-3); HEMATOCRIT 31.9 % (39.0-53.0); HEMOGLOBIN 10.4 g/dL (13.0-17.5); LYMPH # 2.1 x10^3/uL (1.0-4.8); LYMPH % 26 % (24-48); MEAN CORPUSCULAR HEMOGLOBIN 28 pg (25-35); MEAN CORPUSCULAR HGB CONC 33 g/dL (31-37); MEAN CORPUSCULAR VOLUME 87 fL (79-100); MONO # 0.7 x10^3/uL (0.0-1.1); MONO % 9 % (0-9); NEUT # 4.4 x10^3/uL (1.8-7.7); NEUT % 55 % (31-73); PLATELET COUNT 367 x10^3/uL (140-400); RED BLOOD COUNT 3.67 x10^6/uL (4.30-5.70); RED CELL DISTRIBUTION WIDTH 14.6 % (11.5-14.5); WHITE BLOOD COUNT 8.1 x10^3/uL (4.0-11.0)
[2021-09-23 04:25] LABS: CALCIUM 8.4 mg/dL (8.5-10.1); CREATININE 0.8 mg/dL (0.7-1.3); GFR 93.7; POTASSIUM 3.8 mmol/L (3.5-5.1)
[2021-09-23] MEDS: LEVOTHYROXINE 75 MCG TABLET PO SCH (06:16)
[2021-09-23] MEDS: COLESTIPOL HCL 1 GM TABLET PO SCH (06:16)
[2021-09-23 07:00] VITALS: BP 136/62
[2021-09-23] MEDS ORDERED: CEFD300C PO (07:48)
[2021-09-23] MEDS: METOCLOPRAMIDE 5 MG TABLET. PO SCH ×2 (08:20→12:00)
[2021-09-23] MEDS: INSULIN LISPRO 300 UNITS/3 ML VIAL. SQ SCH ×2 (08:24→12:03)
--- NOTE | 2021-09-23 08:26 | DS ---
DATE OF DISCHARGE: 09/23/2021 PRIMARY DIAGNOSIS: Hypotension. ADDITIONAL DIAGNOSES: Lactic acidosis, brittle diabetes, sepsis, acute kidney injury, resolved during stay. 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 SUMMARY OF STAY: The patient was admitted. Initial blood sugars were high. Insulin was just stopped, causing hypoglycemia and he was brought back to his custodial levels with improvement in the same. He was covered with IV antibiotics throughout the stay with gradual improvement, but still weakness by the time of discharge, but his mental status was approaching normal, which was not normal throughout the stay. Lactic acidosis and acute renal failure resolved. He was eating, drinking decently with help and felt he could return to custodial status on another week's worth of antibiotics on the day of discharge and this was accomplished. DISPOSITION: The patient is discharged back to the custodial. DIET: ADA diet. ACTIVITY: As tolerated. DISCHARGE MEDICATIONS: Listed on the med rec, had been addressed. STEVEN DR: Santiago TID: [id number]
[2021-09-23] MEDS: SENNOSIDES/DOCUSATE 8.6/50MG TABLET. PO SCH (09:00)
[2021-09-23] MEDS: TIMOLOL 0.5% OPHTH SOLUTION 5ML BOTTLE. OU SCH (09:16)
[2021-09-23] MEDS: BRIMONIDINE 0.2% OPHTH SOLUTION 5ML BOTTLE. OU SCH (09:16)
[2021-09-23] MEDS: CYANOCOBALAMIN (VITAMIN B-12) 1,000 MCG TABLET. PO SCH (09:16)
[2021-09-23] MEDS: CARBIDOPA/LEVODOPA CR 25/100MG TABLET.SA. PO SCH (09:16)
[2021-09-23] MEDS: FERROUS SULFATE 325 MG TABLET. PO SCH (09:17)
[2021-09-23] MEDS: ALPRAZolam 0.25 MG TABLET PO SCH (09:17)
[2021-09-23] MEDS: CITALOPRAM 20 MG TABLET. PO SCH (09:17)
[2021-09-23] MEDS: LACTOBACILLUS RHAMNOSUS GG 1 CAPSULE. PO SCH (09:17)
[2021-09-23] MEDS: ASPIRIN ENTERIC COATED 81 MG TABLET.DR. PO SCH (09:18)
[2021-09-23] MEDS: GABAPENTIN 100 MG CAPSULE. PO SCH (09:18)
[2021-09-23] MEDS: INSULIN GLARGINE SYRINGE. SQ SCH (09:34)
[2021-09-23 12:00] VITALS: BP 123/48
--- NOTE | 2021-09-23 13:10 | NUR ---
Report called to Gladys at [facility] at 1300.
--- NOTE | 2021-09-23 13:45 | NUR ---
Discharge Note: KAJAL BOYD [facility] Discharge instructions and discharge home medications reviewed with Other facility and a copy given. All questions have been answered and understanding verbalized. The following instructions and handouts were given: discharge instructions and new prescription. Discontinued lines and drains: Peripheral IV discontinued intact. Patient discharged to [facility] with [facility] via Wheelchair
== END 2021-09-23 13:45 | DRG 640 ==
LOC: ER 12:23 → ED HOLD 15:30 → 5 SOUTH 15:55
PROVIDERS: ADMIT Family Medicine; ATTEND Family Medicine
DX: E86.0 Dehydration (principal); N17.0 Acute kidney failure with tubular necrosis; N30.00 Acute cystitis without hematuria; I95.9 Hypotension, unspecified; G20 Parkinson's disease; I11.0 Hypertensive heart disease with heart failure; I50.9 Heart failure, unspecified; M47.9 Spondylosis, unspecified; Z79.4 Long term (current) use of insulin; E21.3 Hyperparathyroidism, unspecified; F32.A Depression, unspecified; F41.9 Anxiety disorder, unspecified; K21.9 Gastro-esophageal reflux disease without esophagitis; E11.649 Type 2 diabetes mellitus with hypoglycemia without coma; Z88.0 Allergy status to penicillin; Z88.8 Allergy status to other drugs, medicaments and biological substances; Z60.2 Problems related to living alone
CPT/HCPCS: 36415; 70450; 71045; 72125; 80048; 80053; 81001; 82553; 82962; 83036; 83605; 83735; 84484; 85025; 87040; 87086; 87426; 87493; 93005; 96361; 96374; J0696; J1815; J2405; J3010; J3490; J7030; U0003; U0005; 97535-GO; 99291-25; G0378

== ENCOUNTER → 2021-11-03 | Outpatient (CLI) | payer MEDICARE, OTHER ==
[~2021-11-03] MED LIST changes: +AMLO-186 PO; +COLL226C TP; +GADOTERATE 7.5 MMOL/15ML VIAL. IVP ONE; +INSU100V6 SQ; +LINE600T12 PO; +MULT1TAB92 PO
--- NOTE | 2021-11-03 14:05 | RAD ---
EXAM: MRI LEFT ANKLE/HINDFOOT WITH AND WITHOUT IV CONTRAST DATE: 11/03/2021 10:45 AM CLINICAL INDICATION: Reason: DFU left heel with suspected oesteomyelitis COMPARISON: None. TECHNIQUE: Multiplanar, multisequence MR imaging of the left ankle was performed before and after the administration of IV contrast. FINDINGS: No ankle joint effusion. T1 marrow signal is preserved. No fracture or osteonecrosis. There is mild thickening of the Achilles tendon measuring 8 mm in AP dimension. No abnormal signal wi thin the Achilles tendon. Tendons: Posterior tibialis, flexor digitorum longus and flexor hallucis longus tendons are intact. Peroneus longus and peroneus brevis tendons are intact. The peroneal tendons are anatomically positio ginger behind the lateral malleolus. Anterior tibialis, extensor digitorum longus and extensor hallucis longus tendons are intact. Achilles tendon intact with normal signal and morphology. Plantar fascia intact without marginal oste itis or soft tissue swelling. Physiologic fluid at the retrocalcaneal bursa. There is mild thickening and edema within the plantar fascia. Moderate edema and fatty atrophy within the associated muscle b ellies. Ligaments: Medial deltoid stabilizers are intact. Lateral collateral stabilizing ligaments including the anterior talofibular ligament are intact. Anterior and posterior tibiofibular ligaments are intact. Spring ligament intact. Ligaments of the Sinus Tarsi are intact. Spaces/Places: Sinus Tarsi within normal limits, without mass lesion or edema pattern. Tarsal tunnel within normal limits, without mass lesion. Articular Cartilage/joint line: Articular cartilage at the tibiotalar joint preserved. Negative osteochondral lesion of the talar dom e. Posterior and middle subtalar joint spaces are preserved. Marginal joint spaces appear preserved including calcaneocuboid joint. Bone/Bone Marrow: There is mild edema within the posterior calcaneus with mild decreased T1 marrow signal and subtle er osive change of the posterior calcaneus (for example image 14). IMPRESSION: 1. Posterior calcaneal edema and shallow T1 marrow replacement suspicious for osteomyelitis of the p osterior calcaneus. 2. Plantar fascial thickening and edema, plantar fasciitis. 3. Edema and atrophy of the plantar muscles may be seen with denervation myositis. Electronically signed by: Bear Loco MD (11/03/2021 2:03 PM) [id number]
== END ==
LOC: MRI 11-03 09:45
PROVIDERS: ATTEND Nurse Practitioner Family
DX: M86.8X7 Other osteomyelitis, ankle and foot (principal)
CPT/HCPCS: 73720; A9575

== ENCOUNTER 2021-11-04 19:56 | Inpatient (IN) | payer MEDICARE, OTHER ==
[~2021-11-04] VITALS: Ht 172.7 cm; Wt 67.4 kg
[~2021-11-04 19:56] MED LIST changes: -COLL226C TP; -GADOTERATE 7.5 MMOL/15ML VIAL. IVP ONE; -INSU100V6 SQ
--- NOTE | 2021-11-04 19:59 | PHYS DOC ---
Past Medical History Past Medical History: Anemia, Anxiety, CHF, Depression, Diabetes-Type I, Diabetes-Type II, GERD, Hypertension, Hypotension, UTI, Other Additional Past Medical Histor: HYPERPARATHYROIDISM, ALZ Past Surgical History: No Surgical History Additional Past Surgical Histo: unknown Smoking Status: Unknown if ever smoked Alcohol Use: None Drug Use: None General Adult EDM: Chief Complaint: GENERALIZED BODY ACHES HPI: HPI: Patient is a 76 year old male who is brought in by EMS from his custodial facility in order to be admitted for osteomyelitis of the left calcaneus. He is a patient of Dr. Wu, who was managing his wounds while admitted here and also at his care facility. He has bilateral heel ulcers. He was admitted here and discharged about 7 days ago for these wound infections. He had initially been placed on vancomycin, then he was switched to Zyvox, he was placed on Carbapenem medication at that time. He had an outpatient MRI done yesterday, the report came back today revealing osteomyelitis of the left calcaneus, he was sent here noted to be admitted. He is taking oral antibiotics though I am unable to ascertain exactly which oral antibiotic he is taking at this time. The patient has dementia, he is unable to give me any information. He denies having any active pain at this time. He denies chest pain, cough, dyspnea. He denies abdominal pain, no report of nausea or vomiting. He does state "ouch" when his legs or feet are touched. Review of Systems: Review of Systems: Review of systems is relatively limited, secondary to patient's chronic left clinical condition, but is as per HPI. No reported fever. No reported chest pain, cough, dyspnea. No reported abdominal pain or vomiting. Bilateral heel ulcers, bilateral foot pain. Heart Score: C/O Chest Pain: No Risk Factors: Risk Factors: DM, Current or recent (<one month) smoker, HTN, HLP, family history of CAD, obesity. Risk Scores: Score 0 - 3: 2.5% MACE over next 6 weeks - Discharge Home Score 4 - 6: 20.3% MACE over next 6 weeks - Admit for Clinical Observation Score 7 - 10: 72.7% MACE over next 6 weeks - Early Invasive Strategies Allergies: Allergies: Allergies Coded Allergies Type Severity Reaction Last Updated Verified Penicillins Allergy Severe 09/17/21 Yes levofloxacin Allergy Intermediate 01/23/16 Yes Physical Exam: PE: Constitutional: He is awake, alert, frail and chronically ill-appearing. He is nontoxic. HENT: Normocephalic, atraumatic Eyes: Conjunctiva normal, no discharge. [] Neck: Normal range of motion, no tenderness, supple, no stridor. Trachea is midline. Cardiovascular:Heart rate regular rhythm Lungs & Thorax: Bilateral breath sounds clear to auscultation [] Abdomen: Abdomen is soft, non-distended, normal bowel sounds, no tenderness to palpation. Skin: Warm, dry. Rash noted on bilateral lower extremities, linear abrasion type lesions on anterior bilateral lower extremities. Wounds covered on bi lateral heels. No palpable crepitus or subcutaneous emphysema. No obvious dusky discoloration. Extremities: No peripheral edema noted. Bilateral lower extremities are thin, cachectic appearing with muscle atrophy noted. No acute deformity is noted. There is a diffuse rash on the lower extremities. Bilateral heel ulcers which are covered with new dressings. There is no focal warmth or erythema. There is mild soft tissue tenderness when you palpate either posterior heel. No calf tenderness is noted. No bony deformity is noted. No palpable crepitus or subcutaneous emphysema is noted Neurologic: He is awake, he is alert, he is minimally conversant, he is not oriented. No facial asymmetry. There is diffuse, nonfocal weakness noted. When he does speak, the speech is fluent. Sensation is grossly intact. Psychologic: Affect is flat EKG: EKG: [] Radiology/Procedures: Radiology/Procedures: [] Course & Med Decision Making: Course & Med Decision Making Pertinent Labs and Imaging studies reviewed. (See chart for details) I ordered blood cultures, inflammatory markers and a lactate. I ordered IV van comycin and ertapenem empirically. The patient is resting comfortably, he reports no pain or discomfort. Vital signs are stable. I explained the plan for admission to the hospital. I contacted Dr. Wu for admission, he accepts the patient. The patient will be admitted, infectious disease will be consulted. Ramez Disclaimer: Ramez Disclaimer: This electronic medical record was generated, in whole or in part, using a voice recognition dictation system. Departure Departure Impression: Primary Impression: Acute osteomyelitis of left calcaneus Additional Impression: Diabetic foot ulcer Disposition: ADMITTED INPATIENT Admitting Physician: Modesto Wu Condition: GUARDED Referrals: MODESTO WU MD (PCP) ENID NEAL DO Nov 04, 2021 19:59
[2021-11-04] MEDS ORDERED: ERTAPENEM 1GM IVPB(GENERIC) NS 50 ML IV ONE (20:30)
[2021-11-04] MEDS ORDERED: VANCOMYCIN 1.25 GM in IV NORMAL SALINE 250ML 250 ML IV ONE (21:00)
[2021-11-04 21:17] LABS: BASO # 0.1 x10^3/uL (0.0-0.2); BASO % 1 % (0-3); EOS # 0.7 x10^3/uL (0.0-0.7); EOS % 9 % (0-3); HEMATOCRIT 28.7 % (39.0-53.0); HEMOGLOBIN 9.5 g/dL (13.0-17.5); LYMPH # 1.5 x10^3/uL (1.0-4.8); LYMPH % 18 % (24-48); MEAN CORPUSCULAR HEMOGLOBIN 28 pg (25-35); MEAN CORPUSCULAR HGB CONC 33 g/dL (31-37); MEAN CORPUSCULAR VOLUME 85 fL (79-100); MONO # 0.5 x10^3/uL (0.0-1.1); MONO % 6 % (0-9); NEUT # 5.6 x10^3/uL (1.8-7.7); NEUT % 66 % (31-73); PLATELET COUNT 354 x10^3/uL (140-400); RED BLOOD COUNT 3.36 x10^6/uL (4.30-5.70); RED CELL DISTRIBUTION WIDTH 15.9 % (11.5-14.5); WHITE BLOOD COUNT 8.5 x10^3/uL (4.0-11.0)
[2021-11-04 21:29] LABS: CALCIUM 8.2 mg/dL (8.5-10.1); CREATININE 0.9 mg/dL (0.7-1.3); GFR 81.8; POTASSIUM 4.1 mmol/L (3.5-5.1)
[2021-11-04 21:35] LABS: ALBUMIN 2.6 g/dL (3.4-5.0); ALBUMIN/GLOBULIN RATIO 0.6 (1.0-1.7); C-REACTIVE PROTEIN 19.7 mg/L (0-3.3); TOTAL BILIRUBIN 0.1 mg/dL (0.2-1.0); TOTAL PROTEIN 6.8 g/dL (6.4-8.2)
[2021-11-05] VITALS (7 sets, daily range): BP systolic 108–162; BP diastolic 48–68
--- NOTE | 2021-11-05 00:15 | NUR ---
The patient, BETH BOYD, 76 y/o, M admitted by MODESTO WU MD, was given written information regarding hospital policies, unit procedures and contact persons. Patient alert to self. Patient oriented to bed, call light and POC. Patient unable to return demonstration of call light. Call light in reach and will reinforce use. Bed alarm on. Patient on 2 liters O2. See assessment. Patient left heel with pink foam intact, attempted to take foam off to photograph and assess wound. Patient kicking and yelling. Will attempt later to assess/photograph wound. Valuables were checked and no personal belongings with Patient per Patient.
--- NOTE | 2021-11-05 00:52 | NUR ---
Patient unable to answer admission questions, Patient history pulled from prior admission.
[2021-11-05] MEDS ORDERED: COLL226C TP (02:10)
[2021-11-05] MEDS ORDERED: INSU100V6 SQ (02:12)
--- NOTE | 2021-11-05 10:28 | PDOC ---
Infectious Disease Note Subjective: Subjective Patient well-known to our service from previous admission. See original ID consultation from October 23, 2021 for full details See last note from October 28 2021 for full details 76 year old male who is brought in by EMS from his senior living facility for admission abnormal MRI revealing left calcaneus osteomyelitis. Patient is a [facility] resident with dementia. Total care. History obtained from chart and medical staff. Patient had developed bilateral heel ulcers for a long time. Left heel wound had necrotic ulceration. Vascular surgery was consulted during last admission. Vascular team notes reviewed, patient was found to have adequate arterial flow to facilitate healing . Patient was started initially on vancomycin and ceftriaxone. Patient developed TAL. His antibiotics were changed to empiric Zyvox and cefdinir as outpatient pending MRI which was scheduled as outpatient. MRI left lower extremity is below. He has been readmitted for further evaluation treatment. Patient received a dose of vancomycin and ertapenem in the ER. Currently is not on any antibiotics. The patient has dementia, he is unable to give me any information. Discussed with nursing staff. Patient answers " no" to every question. No fever, nausea, vomiting, diarrhea, abdominal pain, chest pain reported per RN.He does state "ouch" when his legs or feet are touched. ROS Limited but negative except for above Vital Signs: Vital Signs Vital Signs Date Time Temp Pulse Resp B/P (MAP) Pulse Ox O2 Delivery O2 Flow Rate FiO2 11/05/21 08:00 Nasal Cannula 2.0 11/05/21 07:00 97.9 59 14 131/56 (81) 99 97.9 Physical Exam: PHYSICAL EXAM General alert awake male in no acute distress HEENT normocephalic atraumatic no conjunctival lesions Neck supple no JVD Lungs clear Heart S1-S2 no murmurs Abdomen soft nontender nondistended bowel sounds present Extremities muscle atrophy chronic, multiple superficial abrasions present in bilateral legs. 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 His memory is very poor. Psych calm cooperative Derm warm dry no generalized rash except for above Medications: Inpatient Meds: Medications reviewed. Labs: Lab Laboratory Tests Test 11/04/21 20:55 11/05/21 07:43 White Blood Count 8.5 x10^3/uL (4.0-11.0) Red Blood Count 3.36 x10^6/uL (4.30-5.70) Hemoglobin 9.5 g/dL (13.0-17.5) Hematocrit 28.7 % (39.0-53.0) Mean Corpuscular Volume 85 fL (79-100) Mean Corpuscular Hemoglobin 28 pg (25-35) Mean Corpuscular Hemoglobin Concent 33 g/dL (31-37) Red Cell Distribution Width 15.9 % (11.5-14.5) Platelet Count 354 x10^3/uL (140-400) Neutrophils (%) (Auto) 66 % (31-73) Lymphocytes (%) (Auto) 18 % (24-48) Monocytes (%) (Auto) 6 % (0-9) Eosinophils (%) (Auto) 9 % (0-3) Basophils (%) (Auto) 1 % (0-3) Neutrophils # (Auto) 5.6 x10^3/uL (1.8-7.7) Lymphocytes # (Auto) 1.5 x10^3/uL (1.0-4.8) Monocytes # (Auto) 0.5 x10^3/uL (0.0-1.1) Eosinophils # (Auto) 0.7 x10^3/uL (0.0-0.7) Basophils # (Auto) 0.1 x10^3/uL (0.0-0.2) Erythrocyte Sedimentation Rate 45 (0-15) Sodium Level 136 mmol/L (136-145) Potassium Level 4.1 mmol/L (3.5-5.1) Chloride Level 101 mmol/L (98-107) Carbon Dioxide Level 28 mmol/L (21-32) Anion Gap 7 (6-14) Blood Urea Nitrogen 9 mg/dL (8-26) Creatinine 0.9 mg/dL (0.7-1.3) Estimated GFR (Cockcroft-Gault) 81.8 BUN/Creatinine Ratio 10 (6-20) Glucose Level 146 mg/dL (70-99) Lactic Acid Level 1.4 mmol/L (0.4-2.0) Calcium Level 8.2 mg/dL (8.5-10.1) Total Bilirubin 0.1 mg/dL (0.2-1.0) Aspartate Amino Transf (AST/SGOT) 34 U/L (15-37) Alanine Aminotransferase (ALT/SGPT) 40 U/L (16-63) Alkaline Phosphatase 188 U/L (46-116) C-Reactive Protein, Quantitative 19.7 mg/L (0-3.3) Total Protein 6.8 g/dL (6.4-8.2) Albumin 2.6 g/dL (3.4-5.0) Albumin/Globulin Ratio 0.6 (1.0-1.7) Glucose (Fingerstick) 94 mg/dL (70-99) Micro PATIENT: BETH BOYD ACCOUNT: [id number] : 1945 LOCATION: MRI AGE: 76 SEX: M EXAM STATUS: PRE CLI ORD. PHYSICIAN: OTONIEL AGARWAL APRN REASON: DFU left heel with suspected oesteomyelitis 15mL CLARISCAN PROCEDURE: LOWER EXT NON JOINT WO/W LT EXAM: MRI LEFT ANKLE/HINDFOOT WITH AND WITHOUT IV CONTRAST DATE: 11/03/2021 10:45 AM CLINICAL INDICATION: Reason: DFU left heel with suspected oesteomyelitis COMPARISON: None. TECHNIQUE: Multiplanar, multisequence MR imaging of the left ankle was performed before and after the administration of IV contrast. FINDINGS: No ankle joint effusion. T1 marrow signal is preserved. No fracture or osteonecrosis. There is mild thickening of the Achilles tendon measuring 8 mm in AP dimension. No abnormal signal within the Achilles tendon. Tendons: Posterior tibialis, flexor digitorum longus and flexor hallucis longus tendons are intact. Peroneus longus and peroneus brevis tendons are intact. The peroneal tendons are anatomically positioned behind the lateral malleolus. Anterior tibialis, extensor digitorum longus and extensor hallucis longus tendons are intact. Achilles tendon intact with normal signal and morphology. Plantar fascia intact without marginal osteitis or soft tissue swelling. Physiologic fluid at the retrocalcaneal bursa. There is mild thickening and edema within the plantar fascia. Moderate edema and fatty atrophy within the associated muscle bellies. Ligaments: Medial deltoid stabilizers are intact. Lateral collateral stabilizing ligaments including the anterior talofibular ligament are intact. Anterior and posterior tibiofibular ligaments are intact. Spring ligament intact. Ligaments of the Sinus Tarsi are intact. Spaces/Places: Sinus Tarsi within normal limits, without mass lesion or edema pattern. Tarsal tunnel within normal limits, without mass lesion. Articular Cartilage/joint line: Articular cartilage at the tibiotalar joint preserved. Negative osteochondral lesion of the talar dome. Posterior and middle subtalar joint spaces are preserved. Marginal joint spaces appear preserved including calcaneocuboid joint. Bone/Bone Marrow: There is mild edema within the posterior calcaneus with mild decreased T1 marrow signal and subtle erosive change of the posterior calcaneus (for example image 14). IMPRESSION: 1. Posterior calcaneal edema and shallow T1 marrow replacement suspicious for osteomyelitis of the posterior calcaneus. 2. Plantar fascial thickening and edema, plantar fasciitis. 3. Edema and atrophy of the plantar muscles may be seen with denervation myositis. Objective: Assessment: Chronic nonhealing left heel wound, with abnormal MRI as above Previous cultures from October 27, 2021 ENTEROCOCCUS FAECALIS STAPHYLOCOCCUS EPIDERMIDIS CORYNEBACTERIUM STRIATUM GRP Peripheral vascular disease Diabetes mellitus Small right heel eschar Muscle atrophy Dementia Parkinson's disease Anemia residential resident Plan: Plan of Care We will restart daptomycin and cefepime Reconsult vascular team Offload Optimize nutritional status Optimize diabetes control Continue supportive care ASH SANZ MD Nov 05, 2021 10:28
[2021-11-05] MEDS ORDERED: POLYETHYLENE GLYCOL 3350 17 GM PACKET. PO PRN (13:00)
[2021-11-05] MEDS: ALPRAZolam 0.25 MG TABLET PO SCH ×2 (14:00→22:03)
--- NOTE | 2021-11-05 14:02 | HP ---
DATE OF SERVICE: 11/05/2021 ADMIT DATE: 11/04/2021 ADMISSION HISTORY AND PHYSICAL CHIEF COMPLAINT AND HISTORY OF PRESENT ILLNESS: This 76-year-old male well known to me from followup years in the office and most recently in the group home. The patient was discharged earlier this month with left heel infection, felt to be possible osteo, but MRI could not be done during the stay. That was ordered as an outpatient by Wound Care who then recommended he be readmitted for IV antibiotics for possible healing of the same, was sent to the Emergency Room where admission was facilitated. PAST MEDICAL HISTORY: Remarkable for Parkinson's, diabetes type 1, GERD, hypertension, UTIs, mild dementia, anemia, anxiety, congestive heart failure, depression. MEDICATIONS: Brought with the patient, listed on the computer have been addressed. ALLERGIES: ALLERGIC TO PENICILLIN AND LEVAQUIN. SOCIAL HISTORY: He is a lifetime nonsmoker, nondrinker, does not use drugs. FAMILY HISTORY: Positive for longevity. REVIEW OF SYSTEMS: He denies any specific complaints at this point in time. He appears to be at his baseline, awake and alert, status and again with mild dementia, but does recognize me because of years of knowing him. PHYSICAL EXAMINATION: GENERAL: He is a chronically ill-appearing male, nontoxic. VITAL SIGNS: Stable. He is afebrile. HEAD, EYES, EARS, NOSE AND THROAT: Unremarkable. NECK: Supple. No lymphadenopathy, no thyromegaly. CHEST: Clear to auscultation. HEART: Regular rate and rhythm. ABDOMEN: Soft, nontender, without hepatosplenomegaly or masses. EXTREMITIES: Reveal the bilateral heel ulcers covered with dressings. NEUROLOGIC: He is nonfocal. Again, recent MRI does show evidence of osteomyelitis of the left heel. LABORATORY DATA: His initial laboratory is remarkable for a hemoglobin 9.5. Sed rate of 45. Renal function is within normal limits. Albumin is consistent with severe protein-calorie malnutrition, with albumin of 2.6. IMPRESSION: 1. Left heel ulcer in a diabetic with osteomyelitis. 2. Multiple other problems listed above. PLAN: ID consultation. IV antibiotics. We will need to discuss further aggressiveness of care issues with the family, but I am not sure who that person would be at this point, but I know the rest of the family and we will figure it out. KULDEEP/MINAL DR: KULDEEP/leatha TID: [id number]
[2021-11-05] MEDS ORDERED: MINERAL OIL/PETROLATUM TOPICAL CREAM 113GM JAR. TP PRN (14:15)
[2021-11-05] MEDS ORDERED: ONDANSETRON ODT 4 MG TAB.RAPDIS. PO PRN (14:15)
--- NOTE | 2021-11-05 14:33 | PDOC2 ---
CONSULT Date of Service Date of Service DATE: 11/05/21 TIME: 14:18 Reason for Consult Reason for Consult: L heel osteo Identification/Chief Complaint Chief Complaint Left heel osteomyelitis Source Source: Patient History of Present Illness Reason for Visit: This a pleasant 76-year-old male who we have seen previously for left heel wound. He has poorly controlled diabetes and poor nutrition status. He returns to the hospital due to an outpatient MRI showing left heel osteomyelitis which was suspected. He denies any fevers or chills. Infectious disease is on board and IV antibiotics have been initiated. He is nonambulatory and cannot recall the last time that he walked. He resides in a nursing facility. He has had arterial duplex last admission which has been reviewed. Past Medical History Cardiovascular: CHF, HTN, Hyperlipidemia CENTRAL NERVOUS SYSTEM: Periperal neuropathy, Other GI: GERD Heme/Onc: Anemia NOS Psych: Anxiety, Depression Musculoskeletal: Osteoarthritis Renal/: Chronic renal insuff Endocrine: Diabetes, Hypothyroidism Past Surgical History Past Surgical History: Cataract Removal, Tonsillectomy Family History Family History: Family History Unknown Social History ALCOHOL: none Drugs: None Lives: Snf Current Problem List Problem List Problems Medical Problems: (1) Acute osteomyelitis of left calcaneus Status: Acute (2) Diabetic foot ulcer Status: Acute Current Medications Current Medications Current Medications Vancomycin HCl 1.25 gm/Sodium Chloride 250 ml @ 166.667 mls/hr 1X ONCE IV Last administered on 11/04/21at 22:06; Start 11/04/21 at 21:00; Stop 11/04/21 at 22:29; Status DC Ertapenem 50 ml @ 100 mls/hr 1X ONCE IV Last administered on 11/04/21at 22:01; Start 11/04/21 at 20:30; Stop 11/04/21 at 20:59; Status DC Acetaminophen (Tylenol) 650 mg PRN Q4HRS PRN PO PAIN; Start 11/05/21 at 13:00 Alprazolam (Xanax) 0.125 mg TID PO ; Start 11/05/21 at 14:00 Amlodipine Besylate (Norvasc) 2.5 mg DAILY PO ; Start 11/06/21 at 09:00 Aspirin (Ecotrin) 81 mg DAILY PO ; Start 11/06/21 at 09:00 Atorvastatin Calcium (Lipitor) 20 mg QHS PO ; Start 11/05/21 at 21:00 Carbidopa/Levodopa (Sinemet Cr) 1 tab.sa TID PO ; Start 11/05/21 at 14:00 Citalopram Hydrobromide (CeleXA) 20 mg DAILY PO ; Start 11/06/21 at 09:00 Cyanocobalamin (Vitamin B-12) 500 mcg DAILY PO ; Start 11/06/21 at 09:00 Donepezil HCl (Aricept) 10 mg HS PO ; Start 11/05/21 at 21:00 Ferrous Sulfate (Feosol) 325 mg BIDWMEALS PO ; Start 11/05/21 at 17:00 Gabapentin (Neurontin) 100 mg TID PO ; Start 11/05/21 at 14:00 Insulin Human Lispro (HumaLOG) 5 units TIDWMEALS SQ ; Start 11/05/21 at 17:00 Latanoprost (Xalatan) 1 drop QHS OU ; Start 11/05/21 at 21:00 Levothyroxine Sodium (Synthroid) 75 mcg DAILY07 PO ; Start 11/06/21 at 07:00 Lisinopril (Prinivil) 20 mg DAILY PO ; Start 11/06/21 at 09:00 Multivitamins (Thera M Plus) 1 tab DAILY PO ; Start 11/06/21 at 09:00 Polyethylene Glycol (miraLAX PACKET) 17 gm PRN DAILY PRN PO CONSTIPATION; Start 11/05/21 at 13:00 Senna/Docusate Sodium (Senna Plus) 1 tab BID PO ; Start 11/05/21 at 21:00 Timolol Maleate (Timoptic 0.5% Oph) 1 drop BID OU ; Start 11/05/21 at 21:00; Status Cancel Brimonidine Tartrate (Alphagan) 1 drop BID OU ; Start 11/05/21 at 21:00 Glycerin/ Hypromellose/ Polyethylene (Artificial Tears) 1 drop QID OU ; Start 11/05/21 at 17:00 Non-Formulary Medication (Colloidal Oatmeal (Eucerin Eczema Relief)) 1 anni BID TP ; Start 11/05/21 at 21:00; Status UNV Insulin Human Lispro (HumaLOG) 5 units TIDWMEALS SQ ; Start 11/05/21 at 17:00 Insulin Glargine (Lantus Syringe) 14 unit DAILY SQ ; Start 11/06/21 at 09:00 Mirtazapine (Remeron) 30 mg QHS PO ; Start 11/05/21 at 21:00 Ondansetron HCl (Zofran Odt) 4 mg PRN Q8HRS PRN PO NAUSEA/VOMITING; Start 11/05/21 at 14:15 Multi-Ingredient Ointment (Hydrocerin, Eucerin Cream) 1 anni PRN Q1HR PRN TP DRY SKIN / SCALING; Start 11/05/21 at 14:15 Timolol Maleate (Timoptic 0.5% Ophth) 1 drop BID OU ; Start 11/05/21 at 21:00 Active Scripts Active Thera-M Tablet (Multivits,Ca,Minerals/Iron/Fa) 1 Each Tablet 1 Tab PO DAILY 90 Days Amlodipine Besylate 5 Mg Tablet 2.5 Mg PO DAILY 90 Days Atorvastatin Calcium 20 Mg Tablet 20 Mg PO QHS 30 Days Reported Humalog (Insulin Lispro) 100 Unit/1 Ml Vial 5 Unit SQ TIDAC Eucerin Eczema Relief (Colloidal Oatmeal) 226 Gm Cream..g. 1 Anni TP BID 30 Days Novolog (Insulin Aspart) 100 Unit/1 Ml Cartridge 5 Unit SQ TIDAC Mirtazapine 30 Mg Tablet 1 Tab PO QHS Lantus Solostar (Insulin Glargine,Hum.rec.anlog) 100 Unit/1 Ml Insuln.pen 14 Unit SQ DAILYWBKFT Donepezil Hcl 10 Mg Tablet 10 Mg PO HS Combigan Eye Drops (Brimonidine Tartrate/Timolol) 5 Ml Drops 1 Drp OU BID Low Dose Aspirin Ec (Aspirin) 81 Mg Tablet.dr 1 Tab PO DAILY Lubricant Eye (Carboxymethylcellulose Sodium) 15 Ml Drops 1 Drp OP QID Alprazolam 0.25 Mg Tablet 0.125 Tab PO TID Timoptic 0.5% (Timolol Maleate) 10 Ml Drops 1 Drop EACHEYE BID Zofran (Ondansetron Hcl) 4 Mg Tablet 1 Tab PO Q8HRS PRN Senna S Tablet (Sennosides/Docusate Sodium) 1 Each Tablet 1 Each PO BID Miralax (Polyethylene Glycol 3350) 17 Gm Powd.pack 1 Packet PO DAILY PRN Lisinopril 10 Mg Tablet 20 Mg PO DAILY Levothyroxine Sodium 75 Mcg Tablet 1 Tab PO DAILY07 Gabapentin (Gabapentin) 100 Mg Capsule 100 Mg PO TID Ferrous Sulfate 325 Mg Tablet 1 Tab PO BID Vitamin B-12 (Cyanocobalamin (Vitamin B-12)) 1,000 Mcg Tablet 500 Mcg PO DAILY Aquaphor (Petrolatum,White) 99 Gm Oint...g. 99 Gm TP BID Latanoprost 2.5 Ml Drops 1 Drop EACHEYE QHS Sinemet Cr 25-100 Tablet (Carbidopa/Levodopa) 1 Each Tablet.er 1 Tab PO TID Citalopram Hbr (Citalopram Hydrobromide) 20 Mg Tablet 1 Tab PO DAILY Tylenol (Acetaminophen) 325 Mg Tablet 2 Tab PO PRN Q4HRS PRN Allergies Allergies: Coded Allergies: Penicillins (Verified Allergy, Severe, 09/17/21) Has tolerated rocephin levofloxacin (Verified Allergy, Intermediate, 01/23/16) ROS General: No: Chills, Other (fevers) Hematological and Lymphatic: No: Bleeding Problems, Blood Clots Respiratory: No: Cough, Shortness of breath Cardiovascular: No Chest Pain, No Edema Gastrointestinal: No Nausea, No Vomiting, No Abdominal Pain Skin: Yes Rash, Yes Skin Lesion Changes Physical Exam General: Alert, Cooperative, No acute distress Lungs: Normal air movement Heart: Regular rate, Other (appeared to have irreg rhythym with feeling of pulses, poss reg with PAC's or PVS?) Extremities: No clubbing, No cyanosis, No edema, Other (Cannot appreciate pedal pulses. Has palpable femoral pulses bilaterally, has 1+ popliteal pulses bilaterally. ) Skin: Other (He has scattered skin abrasions or lesions on bilateral lower extremities diffusely none of which appear acutely infected. He has a very small pressure heel injury to the right foot. He has a larger left heel pe netrating ulcer posteriorly that does go down to the bone and with some surrounding eschar. There is no purulent drainage, there is no surrounding erythema. There is no fluctuance.) Neuro: Normal speech Psych/Mental Status: Mental status NL Vitals VITALS Vital Signs Date Time Temp Pulse Resp B/P (MAP) Pulse Ox O2 Delivery O2 Flow Rate FiO2 11/05/21 10:58 97.4 63 16 138/68 (91) 98 Nasal Cannula 2.0 97.4 Labs Labs Laboratory Tests Test 11/04/21 20:55 1/19/22 07:43 11/05/21 11:49 White Blood Count 8.5 x10^3/uL (4.0-11.0) Red Blood Count 3.36 x10^6/uL (4.30-5.70) Hemoglobin 9.5 g/dL (13.0-17.5) Hematocrit 28.7 % (39.0-53.0) Mean Corpuscular Volume 85 fL (79-100) Mean Corpuscular Hemoglobin 28 pg (25-35) Mean Corpuscular Hemoglobin Concent 33 g/dL (31-37) Red Cell Distribution Width 15.9 % (11.5-14.5) Platelet Count 354 x10^3/uL (140-400) Neutrophils (%) (Auto) 66 % (31-73) Lymphocytes (%) (Auto) 18 % (24-48) Monocytes (%) (Auto) 6 % (0-9) Eosinophils (%) (Auto) 9 % (0-3) Basophils (%) (Auto) 1 % (0-3) Neutrophils # (Auto) 5.6 x10^3/uL (1.8-7.7) Lymphocytes # (Auto) 1.5 x10^3/uL (1.0-4.8) Monocytes # (Auto) 0.5 x10^3/uL (0.0-1.1) Eosinophils # (Auto) 0.7 x10^3/uL (0.0-0.7) Basophils # (Auto) 0.1 x10^3/uL (0.0-0.2) Erythrocyte Sedimentation Rate 45 (0-15) Sodium Level 136 mmol/L (136-145) Potassium Level 4.1 mmol/L (3.5-5.1) Chloride Level 101 mmol/L (98-107) Carbon Dioxide Level 28 mmol/L (21-32) Anion Gap 7 (6-14) Blood Urea Nitrogen 9 mg/dL (8-26) Creatinine 0.9 mg/dL (0.7-1.3) Estimated GFR (Cockcroft-Gault) 81.8 BUN/Creatinine Ratio 10 (6-20) Glucose Level 146 mg/dL (70-99) Lactic Acid Level 1.4 mmol/L (0.4-2.0) Calcium Level 8.2 mg/dL (8.5-10.1) Total Bilirubin 0.1 mg/dL (0.2-1.0) Aspartate Amino Transf (AST/SGOT) 34 U/L (15-37) Alanine Aminotransferase (ALT/SGPT) 40 U/L (16-63) Alkaline Phosphatase 188 U/L (46-116) C-Reactive Protein, Quantitative 19.7 mg/L (0-3.3) Total Protein 6.8 g/dL (6.4-8.2) Albumin 2.6 g/dL (3.4-5.0) Albumin/Globulin Ratio 0.6 (1.0-1.7) Glucose (Fingerstick) 94 mg/dL (70-99) 94 mg/dL (70-99) Laboratory Tests Test 11/04/21 20:55 11/05/21 07:43 11/05/21 11:49 White Blood Count 8.5 x10^3/uL (4.0-11.0) Red Blood Count 3.36 x10^6/uL (4.30-5.70) Hemoglobin 9.5 g/dL (13.0-17.5) Hematocrit 28.7 % (39.0-53.0) Mean Corpuscular Volume 85 fL (79-100) Mean Corpuscular Hemoglobin 28 pg (25-35) Mean Corpuscular Hemoglobin Concent 33 g/dL (31-37) Red Cell Distribution Width 15.9 % (11.5-14.5) Platelet Count 354 x10^3/uL (140-400) Neutrophils (%) (Auto) 66 % (31-73) Lymphocytes (%) (Auto) 18 % (24-48) Monocytes (%) (Auto) 6 % (0-9) Eosinophils (%) (Auto) 9 % (0-3) Basophils (%) (Auto) 1 % (0-3) Neutrophils # (Auto) 5.6 x10^3/uL (1.8-7.7) Lymphocytes # (Auto) 1.5 x10^3/uL (1.0-4.8) Monocytes # (Auto) 0.5 x10^3/uL (0.0-1.1) Eosinophils # (Auto) 0.7 x10^3/uL (0.0-0.7) Basophils # (Auto) 0.1 x10^3/uL (0.0-0.2) Erythrocyte Sedimentation Rate 45 (0-15) Sodium Level 136 mmol/L (136-145) Potassium Level 4.1 mmol/L (3.5-5.1) Chloride Level 101 mmol/L (98-107) Carbon Dioxide Level 28 mmol/L (21-32) Anion Gap 7 (6-14) Blood Urea Nitrogen 9 mg/dL (8-26) Creatinine 0.9 mg/dL (0.7-1.3) Estimated GFR (Cockcroft-Gault) 81.8 BUN/Creatinine Ratio 10 (6-20) Glucose Level 146 mg/dL (70-99) Lactic Acid Level 1.4 mmol/L (0.4-2.0) Calcium Level 8.2 mg/dL (8.5-10.1) Total Bilirubin 0.1 mg/dL (0.2-1.0) Aspartate Amino Transf (AST/SGOT) 34 U/L (15-37) Alanine Aminotransferase (ALT/SGPT) 40 U/L (16-63) Alkaline Phosphatase 188 U/L (46-116) C-Reactive Protein, Quantitative 19.7 mg/L (0-3.3) Total Protein 6.8 g/dL (6.4-8.2) Albumin 2.6 g/dL (3.4-5.0) Albumin/Globulin Ratio 0.6 (1.0-1.7) Glucose (Fingerstick) 94 mg/dL (70-99) 94 mg/dL (70-99) Images Images MRI - left calcaneous osteomyelitis Art duplex - mild disease Assessment/Plan Assessment/Plan 76-year-old male with other comorbidities who has mild peripheral arterial disease and a left calcaneous osteomyelitis. He is nonambulatory. His wound does probe to the bone, with some eschar, however does not show signs of acute infection. This is likely chronic osteomyelitis due to combination of poorly controlled diabetes, pressure injury and poor nutritional status. He should have adequate arterial flow to facilitate healing with optimization of his diabetes, continued IV abx per ID, local wound care, strcit offloading, and improvement in nutritional status. Would not recommend further arterial imaging, work-up or intervention at this time as it would expose patient to unnecessary risks with likely little benefit. The wound does not bother the patient. If the wound becomes unmanageable, continued poor signs of healing with optimized care as mentioned, or causing signs of systemic infection he would likely require an above-knee amputation, as he is nonambulatory. This is not necessary at this time. We discussed this with the patient today who is agreeable with the plan. CLAYTON VANESSA Nov 05, 2021 14:33
[2021-11-05] MEDS: GABAPENTIN 100 MG CAPSULE. PO SCH ×2 (15:52→22:02)
[2021-11-05] MEDS: CARBIDOPA/LEVODOPA CR 25/100MG TABLET.SA. PO SCH ×2 (15:52→22:02)
[2021-11-05] MEDS: FERROUS SULFATE 325 MG TABLET. PO SCH (15:52)
[2021-11-05] MEDS: POLYVINYL ALCOHOL 1.4% OPHTH SOLUTION 15ML BOTTLE. OU SCH ×2 (15:52→22:01)
[2021-11-05] MEDS: INSULIN LISPRO 300 UNITS/3 ML VIAL. SQ SCH ×2 (17:00→17:58)
[2021-11-05] MEDS ORDERED: COLLOIDAL OATMEAL TP SCH (21:00)
[2021-11-05] MEDS ORDERED: TIMOLOL 0.5% OPHTH SOLUTION 5ML BOTTLE. OU SCH (21:00)
[2021-11-05] MEDS: BRIMONIDINE 0.2% OPHTH SOLUTION 5ML BOTTLE. OU SCH (22:01)
[2021-11-05] MEDS: LATANOPROST 0.005% OPHTH SOLUTION 2.5ML BOTTLE. OU SCH (22:01)
[2021-11-05] MEDS: TIMOLOL 0.5% OPHTH SOLUTION 5ML BOTTLE. OU SCH (22:01)
[2021-11-05] MEDS: SENNOSIDES/DOCUSATE 8.6/50MG TABLET. PO SCH (22:02)
[2021-11-05] MEDS: DONEPEZIL HCL 10 MG TABLET. PO SCH (22:02)
[2021-11-05] MEDS: ATORVASTATIN CALCIUM 20 MG TABLET PO SCH (22:02)
[2021-11-05] MEDS: MIRTAZAPINE 15 MG TABLET PO SCH (22:02)
[2021-11-06 03:30] VITALS: BP 110/49
[2021-11-06] MEDS: LEVOTHYROXINE 75 MCG TABLET PO SCH (06:08)
[2021-11-06 07:00] VITALS: BP 141/67
[2021-11-06] MEDS: INSULIN LISPRO 300 UNITS/3 ML VIAL. SQ SCH ×5 (08:00→17:58)
--- NOTE | 2021-11-06 08:19 | PDOC ---
Infectious Disease Note Subjective: Subjective Patient resting comfortably Temperature of 100.9 Had nausea and vomiting yesterday this morning answers only a few questions Vascular input noted Discussed with nursing staff at bedside Vital Signs: Vital Signs Vital Signs Date Time Temp Pulse Resp B/P (MAP) Pulse Ox O2 Delivery O2 Flow Rate FiO2 11/06/21 03:30 98.3 68 18 110/49 (69) 2 Nasal Cannula 98.3 11/05/21 20:10 2.0 Physical Exam: PHYSICAL EXAM General patient resting quietly no acute distress HEENT normocephalic atraumatic no conjunctival lesions Neck supple Lungs clear Heart S1-S2 no murmurs Abdomen soft nontender nondistended bowel sounds present Extremities muscle atrophy chronic, multiple superficial abrasions present in bilateral legs. Left heel Rooke boots in place. Dressing intact. 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 His memory is very poor. Psych calm cooperative Derm warm dry no generalized rash except for above Medications: Inpatient Meds: Medications reviewed. Labs: Lab Laboratory Tests Test 11/05/21 11:49 11/05/21 17:15 11/05/21 20:26 11/05/21 21:01 Glucose (Fingerstick) 94 mg/dL (70-99) 117 mg/dL (70-99) 63 mg/dL (70-99) 93 mg/dL (70-99) Test 11/06/21 07:42 Glucose (Fingerstick) 98 mg/dL (70-99) Micro PATIENT: BETH BOYD ACCOUNT: [id number] : 1945 LOCATION: MRI AGE: 76 SEX: M EXAM STATUS: PRE CLI ORD. PHYSICIAN: OTONIEL AGARWAL APRN REASON: DFU left heel with suspected oesteomyelitis 15mL CLARISCAN PROCEDURE: LOWER EXT NON JOINT WO/W LT EXAM: MRI LEFT ANKLE/HINDFOOT WITH AND WITHOUT IV CONTRAST DATE: 11/03/2021 10:45 AM CLINICAL INDICATION: Reason: DFU left heel with suspected oesteomyelitis COMPARISON: None. TECHNIQUE: Multiplanar, multisequence MR imaging of the left ankle was performed before and after the administration of IV contrast. FINDINGS: No ankle joint effusion. T1 marrow signal is preserved. No fracture or osteonecrosis. There is mild thickening of the Achilles tendon measuring 8 mm in AP dimension. No abnormal signal within the Achilles tendon. Tendons: Posterior tibialis, flexor digitorum longus and flexor hallucis longus tendons are intact. Peroneus longus and peroneus brevis tendons are intact. The peroneal tendons are anatomically positioned behind the lateral malleolus. Anterior tibialis, extensor digitorum longus and extensor hallucis longus tendons are intact. Achilles tendon intact with normal signal and morphology. Plantar fascia intact without marginal osteitis or soft tissue swelling. Physiologic fluid at the retrocalcaneal bursa. There is mild thickening and edema within the plantar fascia. Moderate edema and fatty atrophy within the associated muscle bellies. Ligaments: Medial deltoid stabilizers are intact. Lateral collateral stabilizing ligaments including the anterior talofibular ligament are intact. Anterior and posterior tibiofibular ligaments are intact. Spring ligament intact. Ligaments of the Sinus Tarsi are intact. Spaces/Places: Sinus Tarsi within normal limits, without mass lesion or edema pattern. Tarsal tunnel within normal limits, without mass lesion. Articular Cartilage/joint line: Articular cartilage at the tibiotalar joint preserved. Negative osteochondral lesion of the talar dome. Posterior and middle subtalar joint spaces are preserved. Marginal joint spaces appear preserved including calcaneocuboid joint. Bone/Bone Marrow: There is mild edema within the posterior calcaneus with mild decreased T1 marrow signal and subtle erosive change of the posterior calcaneus (for example image 14). IMPRESSION: 1. Posterior calcaneal edema and shallow T1 marrow replacement suspicious for osteomyelitis of the posterior calcaneus. 2. Plantar fascial thickening and edema, plantar fasciitis. 3. Edema and atrophy of the plantar muscles may be seen with denervation myositis. 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 ESR 45, CRP 19 Previous cultures from October 27, 2021 ENTEROCOCCUS FAECALIS STAPHYLOCOCCUS EPIDERMIDIS CORYNEBACTERIUM STRIATUM GRP Peripheral vascular disease Diabetes mellitus Small right heel eschar Muscle atrophy Dementia Parkinson's disease Anemia longterm resident Plan: Plan of Care We will start IV Vanco and cefepime Monitor renal functions closely Pharmacy to assist with Vanco dosing Maintain aspiration precaution Vascular input noted Agree that with his nonambulatory status, wound will likely worsen He remains at risk of sepsis, limb loss Offload Optimize nutritional status Optimize diabetes control Continue supportive care Continue aspiration precautions Discussed with ASH ROSE MD Nov 06, 2021 08:19
[2021-11-06] MEDS: VANCOMYCIN PER PHARMACY MC PRN (08:57)
[2021-11-06] MEDS: VANCOMYCIN 1 GM in IV NORMAL SALINE 250ML 250 ML IV SCH ×2 (09:00→21:19)
[2021-11-06] MEDS: ALPRAZolam 0.25 MG TABLET PO SCH ×3 (09:00→21:07)
[2021-11-06] MEDS: GABAPENTIN 100 MG CAPSULE. PO SCH ×4 (09:01→21:07)
[2021-11-06] MEDS: CARBIDOPA/LEVODOPA CR 25/100MG TABLET.SA. PO SCH ×3 (09:01→21:07)
[2021-11-06] MEDS: SENNOSIDES/DOCUSATE 8.6/50MG TABLET. PO SCH ×2 (09:01→21:07)
[2021-11-06] MEDS: CYANOCOBALAMIN (VITAMIN B-12) 1,000 MCG TABLET. PO SCH (09:01)
[2021-11-06] MEDS: MULTIVITAMIN with MINERAL TABLET. PO SCH (09:01)
[2021-11-06] MEDS: ASPIRIN ENTERIC COATED 81 MG TABLET.DR. PO SCH (09:01)
[2021-11-06] MEDS: CITALOPRAM 20 MG TABLET. PO SCH (09:02)
[2021-11-06] MEDS: FERROUS SULFATE 325 MG TABLET. PO SCH ×2 (09:02→16:42)
[2021-11-06] MEDS: TIMOLOL 0.5% OPHTH SOLUTION 5ML BOTTLE. OU SCH ×2 (09:13→21:20)
[2021-11-06] MEDS: BRIMONIDINE 0.2% OPHTH SOLUTION 5ML BOTTLE. OU SCH ×2 (09:14→21:20)
[2021-11-06] MEDS: POLYVINYL ALCOHOL 1.4% OPHTH SOLUTION 15ML BOTTLE. OU SCH ×4 (09:14→21:00)
[2021-11-06] MEDS: LISINOPRIL 10 MG TABLET PO SCH (09:16)
[2021-11-06] MEDS: CEFEPIME HCL IV Push 2 GM VIAL. IVP SCH ×3 (09:16→21:19)
--- NOTE | 2021-11-06 09:18 | NUR ---
Pharmacy Vancomycin Dosing Note S:Consulted to monitor and dose vancomycin started 11/04/21. O:BETH BOYD is a 76 year old M with Chronic left heel wound. Possible Osteomyelitis . Height: 5 feet, 8 inches Weight: 67.4 kg [place] Body Weight: Adjusted Body Weight: Dosing Weight: Other Antibiotics: LABS: Last BUN: 9 Last Creatinine: 0.9 Creatinine Clearance: 59 mL/min Last WBC: 8.5 Last Procalcitonin: Tmax (past 24 hours): 100.9 Microbiology: NGTD I/O: 600/ Drug Levels: Last level: on at Last dose given 11/04/21 at 2206 Vancomycin Dosing: Loading Dose: x1 Dosing Weight: Target Trough: 15-20 A: Based on Dr. Hernandez's order: P: 1. Vancomycin 1000 mg IV q12h. 2. Follow up Trough level on 11/07/21 at 2030. 3. Pharmacy will continue to monitor, follow and adjust therapy as needed. Gabriel Martini [facility], 11/06/21 0937
--- NOTE | 2021-11-06 10:05 | PN ---
DATE: 11/06/2021 DAILY PROGRESS NOTE LOCATION: He is in room 442. SUBJECTIVE: This 76-year-old male remains hospitalized with osteomyelitis of the left heel. He continues to appear relatively comfortable. Help of ID and vascular surgery appreciated. OBJECTIVE: VITAL SIGNS: Stable. He has had a temperature to a 100.9. He remains at baseline mental status. CHEST: Clear. HEART: Regular. ABDOMEN: Benign. Ongoing wound care. LABORATORY DATA: Sugars have been very good since admission. C-reactive protein is up to 19.7. IMPRESSION: Osteomyelitis of left heel, type 1 brittle diabetic, who is nonambulatory and has evidence of peripheral arterial disease in addition. PLAN: Continue present antibiotics, wound care plans, long-term per help of consultants. These would include the head along for IV antibiotics or just a trial of chronic suppressive therapy with amputation if not successful. LEIF HOLDEN: Santiago TID: [id number]
[2021-11-06 11:00] VITALS: BP 148/52
[2021-11-06] MEDS: INSULIN GLARGINE SYRINGE. SQ SCH (11:44)
[2021-11-06 15:00] VITALS: BP 116/77
[2021-11-06 19:30] VITALS: BP 109/41
[2021-11-06] MEDS: ATORVASTATIN CALCIUM 20 MG TABLET PO SCH (21:07)
[2021-11-06] MEDS: DONEPEZIL HCL 10 MG TABLET. PO SCH (21:07)
[2021-11-06] MEDS: MIRTAZAPINE 15 MG TABLET PO SCH (21:07)
[2021-11-06] MEDS: LATANOPROST 0.005% OPHTH SOLUTION 2.5ML BOTTLE. OU SCH (21:20)
[2021-11-06 23:03] VITALS: BP 94/52
[2021-11-07 07:00] VITALS: BP 137/66
[2021-11-07] MEDS: INSULIN LISPRO 300 UNITS/3 ML VIAL. SQ SCH ×3 (08:00→17:01)
--- NOTE | 2021-11-07 08:38 | PDOC ---
Infectious Disease Note Subjective: Subjective Patient resting quietly arousable Appears comfortable No further nausea vomiting fever abdominal pain or diarrhea reported Vascular input noted Discussed with nursing staff Vital Signs: Vital Signs Vital Signs Date Time Temp Pulse Resp B/P (MAP) Pulse Ox O2 Delivery O2 Flow Rate FiO2 11/07/21 07:00 98.7 71 16 137/66 (89) 97 Room Air 98.7 11/06/21 23:03 2.0 Physical Exam: PHYSICAL EXAM General patient resting quietly no acute distress HEENT normocephalic atraumatic no conjunctival lesions Neck supple Lungs clear Heart S1-S2 no murmurs Abdomen soft nontender nondistended bowel sounds present Extremities muscle atrophy chronic, multiple superficial abrasions present in bilateral legs. Left heel Rooke boots in place. Dressing intact. 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 His memory is very poor. Psych calm cooperative Derm warm dry no generalized rash except for above Medications: Inpatient Meds: Medications reviewed. Labs: Lab Laboratory Tests Test 11/06/21 11:30 11/06/21 16:55 11/06/21 20:41 11/07/21 08:08 Glucose (Fingerstick) 181 mg/dL (70-99) 196 mg/dL (70-99) 172 mg/dL (70-99) 80 mg/dL (70-99) Micro PATIENT: BETH BOYD ACCOUNT: [id number] : 1945 LOCATION: MRI AGE: 76 SEX: M EXAM STATUS: PRE CLI ORD. PHYSICIAN: OTONIEL AGARWAL APRN REASON: DFU left heel with suspected oesteomyelitis 15mL CLARISCAN PROCEDURE: LOWER EXT NON JOINT WO/W LT EXAM: MRI LEFT ANKLE/HINDFOOT WITH AND WITHOUT IV CONTRAST DATE: 11/03/2021 10:45 AM CLINICAL INDICATION: Reason: DFU left heel with suspected oesteomyelitis COMPARISON: None. TECHNIQUE: Multiplanar, multisequence MR imaging of the left ankle was performed before and after the administration of IV contrast. FINDINGS: No ankle joint effusion. T1 marrow signal is preserved. No fracture or osteonecrosis. There is mild thickening of the Achilles tendon measuring 8 mm in AP dimension. No abnormal signal within the Achilles tendon. Tendons: Posterior tibialis, flexor digitorum longus and flexor hallucis longus tendons are intact. Peroneus longus and peroneus brevis tendons are intact. The peroneal tendons are anatomically positioned behind the lateral malleolus. Anterior tibialis, extensor digitorum longus and extensor hallucis longus tendons are intact. Achilles tendon intact with normal signal and morphology. Plantar fascia intact without marginal osteitis or soft tissue swelling. Physiologic fluid at the retrocalcaneal bursa. There is mild thickening and edema within the plantar fascia. Moderate edema and fatty atrophy within the associated muscle bellies. Ligaments: Medial deltoid stabilizers are intact. Lateral collateral stabilizing ligaments including the anterior talofibular ligament are intact. Anterior and posterior tibiofibular ligaments are intact. Spring ligament intact. Ligaments of the Sinus Tarsi are intact. Spaces/Places: Sinus Tarsi within normal limits, without mass lesion or edema pattern. Tarsal tunnel within normal limits, without mass lesion. Articular Cartilage/joint line: Articular cartilage at the tibiotalar joint preserved. Negative osteochondral lesion of the talar dome. Posterior and middle subtalar joint spaces are preserved. Marginal joint spaces appear preserved including calcaneocuboid joint. Bone/Bone Marrow: There is mild edema within the posterior calcaneus with mild decreased T1 marrow signal and subtle erosive change of the posterior calcaneus (for example image 14). IMPRESSION: 1. Posterior calcaneal edema and shallow T1 marrow replacement suspicious for osteomyelitis of the posterior calcaneus. 2. Plantar fascial thickening and edema, plantar fasciitis. 3. Edema and atrophy of the plantar muscles may be seen with denervation myositis. 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 ESR 45, CRP 19 Previous cultures from October 27, 2021 ENTEROCOCCUS FAECALIS STAPHYLOCOCCUS EPIDERMIDIS CORYNEBACTERIUM STRIATUM GRP Peripheral vascular disease Diabetes mellitus Small right heel eschar Muscle atrophy Dementia Parkinson's disease Anemia long-term resident Plan: Plan of Care Continue IV Vanco and cefepime Monitor renal functions closely Pharmacy to assist with Vanco dosing Maintain aspiration precaution Vascular input noted Agree that with his nonambulatory status, wound will likely worsen He remains at risk of sepsis, limb loss Offload Optimize nutritional status Optimize diabetes control Continue supportive care Continue aspiration precautions Discussed with ASH ROSE MD Nov 07, 2021 08:38
[2021-11-07] MEDS: INSULIN GLARGINE SYRINGE. SQ SCH (08:49)
[2021-11-07] MEDS: VANCOMYCIN 1 GM in IV NORMAL SALINE 250ML 250 ML IV SCH (09:00)
[2021-11-07] MEDS: TIMOLOL 0.5% OPHTH SOLUTION 5ML BOTTLE. OU SCH ×2 (09:00→20:55)
[2021-11-07] MEDS: BRIMONIDINE 0.2% OPHTH SOLUTION 5ML BOTTLE. OU SCH ×2 (09:00→20:55)
[2021-11-07] MEDS: GABAPENTIN 100 MG CAPSULE. PO SCH ×3 (09:07→20:56)
[2021-11-07] MEDS: FERROUS SULFATE 325 MG TABLET. PO SCH ×2 (09:07→14:38)
[2021-11-07] MEDS: LEVOTHYROXINE 75 MCG TABLET PO SCH (09:07)
[2021-11-07] MEDS: ASPIRIN ENTERIC COATED 81 MG TABLET.DR. PO SCH (09:07)
[2021-11-07] MEDS: SENNOSIDES/DOCUSATE 8.6/50MG TABLET. PO SCH ×2 (09:08→20:56)
[2021-11-07] MEDS: ALPRAZolam 0.25 MG TABLET PO SCH ×4 (09:08→20:56)
[2021-11-07] MEDS: LISINOPRIL 10 MG TABLET PO SCH (09:09)
[2021-11-07] MEDS: CARBIDOPA/LEVODOPA CR 25/100MG TABLET.SA. PO SCH ×3 (09:09→20:56)
[2021-11-07] MEDS: MULTIVITAMIN with MINERAL TABLET. PO SCH (09:09)
[2021-11-07] MEDS: CITALOPRAM 20 MG TABLET. PO SCH (09:09)
[2021-11-07] MEDS: CYANOCOBALAMIN (VITAMIN B-12) 1,000 MCG TABLET. PO SCH (09:09)
[2021-11-07] MEDS: POLYVINYL ALCOHOL 1.4% OPHTH SOLUTION 15ML BOTTLE. OU SCH ×4 (09:11→20:55)
[2021-11-07 11:00] VITALS: BP 100/37
[2021-11-07 11:41] LABS: CALCIUM 8.7 mg/dL (8.5-10.1); GFR 72.5; POTASSIUM 4.2 mmol/L (3.5-5.1)
[2021-11-07] MEDS: VANCOMYCIN PER PHARMACY MC PRN ×2 (12:47→21:02)
[2021-11-07 15:11] VITALS: BP 113/45
--- NOTE | 2021-11-07 15:55 | NUR ---
Patient family concerned patient has a UTI, and has several recently with sepsis, they requested UA on patient, received order from Dr. Jackman.
[2021-11-07 17:14] LABS: BILIRUBIN,URINE NEGATIVE (NEG); CLARITY,URINE CLEAR; COLOR,URINE YELLOW; NITRITE,URINE NEGATIVE (NEG); PROTEIN,URINE NEGATIVE (NEG-TRACE); UROBILINOGEN,URINE 0.2 mg/dL (0.2 mg/dL)
[2021-11-07 17:29] LABS: BACTERIA,URINE FEW /HPF (0-FEW)
[2021-11-07 17:30] LABS: RBC,URINE 0 /HPF (0-2); YEAST,URINE PRESENT /HPF
[2021-11-07 19:00] VITALS: BP 104/44
[2021-11-07 20:53] LABS: VANC TR 26.7 mcg/mL (10.0-20.0)
[2021-11-07] MEDS: LATANOPROST 0.005% OPHTH SOLUTION 2.5ML BOTTLE. OU SCH (20:55)
[2021-11-07] MEDS: LACTOBACILLUS RHAMNOSUS GG 1 CAPSULE. PO SCH (20:56)
[2021-11-07] MEDS: MIRTAZAPINE 15 MG TABLET PO SCH (20:56)
[2021-11-07] MEDS: DONEPEZIL HCL 10 MG TABLET. PO SCH (20:56)
[2021-11-07] MEDS: ATORVASTATIN CALCIUM 20 MG TABLET PO SCH (20:56)
[2021-11-07] MEDS: CEFEPIME HCL IV Push 2 GM VIAL. IVP SCH (20:57)
--- NOTE | 2021-11-07 21:02 | NUR ---
Pharmacy Vancomycin Dosing Note S: Consulted to monitor and dose vancomycin started 11/04/21. O: BETH BOYD is a 76 year old M with a chronic left heel wound, possible osteomyelitis. Other Antibiotics: CEFEPIME 2GM Q12HR LABS: Last BUN: 9 Last Creatinine: 1 Creatinine Clearance: 59 mL/min Last WBC: 8.5 Last Procalcitonin: Tmax (past 24 hours): 98.1 Microbiology: BLOOD CX (11/04): NGTD I/O: 600/- Drug Levels: Last Trough level: 26.7 on 11/07/21 at 2030 Last dose given 11/07/21 at 0900 Vancomycin Dosing: Dosing Weight: Actual Target Trough: 15-20 A: Patient is receiving vancomycin 1000 mg IV q 12hrs. A trough of 26.7 mcg/ml is above goal range. Renal function remains stable. P: 1. HOLD further vancomycin doses. 2. Follow up random level 11/08 to assess for drug clearance prior to new regimen start. 3. Pharmacy will continue to monitor, follow and adjust therapy as needed. [facility], 11/07/21 [id number]
[2021-11-07 23:00] VITALS: BP 105/41
[2021-11-08 03:00] VITALS: BP 105/36
[2021-11-08 05:49] LABS: CALCIUM 8.2 mg/dL (8.5-10.1); CREATININE 1.5 mg/dL (0.7-1.3); GFR 45.4; POTASSIUM 4.2 mmol/L (3.5-5.1)
[2021-11-08] MEDS ORDERED: VANCOMYCIN RANDOM LEVEL. MC ONE (06:00)
[2021-11-08] MEDS: LEVOTHYROXINE 75 MCG TABLET PO SCH (06:27)
[2021-11-08 07:00] VITALS: BP 114/47
[2021-11-08] MEDS: INSULIN LISPRO 300 UNITS/3 ML VIAL. SQ SCH ×3 (08:00→17:42)
[2021-11-08] MEDS: FERROUS SULFATE 325 MG TABLET. PO SCH ×2 (08:00→17:38)
[2021-11-08] MEDS: LISINOPRIL 10 MG TABLET PO SCH (09:00)
[2021-11-08] MEDS: GABAPENTIN 100 MG CAPSULE. PO SCH ×3 (09:00→20:37)
[2021-11-08] MEDS: POLYVINYL ALCOHOL 1.4% OPHTH SOLUTION 15ML BOTTLE. OU SCH ×4 (09:00→20:37)
[2021-11-08] MEDS: SENNOSIDES/DOCUSATE 8.6/50MG TABLET. PO SCH ×2 (09:00→20:39)
[2021-11-08] MEDS: ASPIRIN ENTERIC COATED 81 MG TABLET.DR. PO SCH (09:00)
[2021-11-08] MEDS: INSULIN GLARGINE SYRINGE. SQ SCH (09:00)
[2021-11-08] MEDS: ALPRAZolam 0.25 MG TABLET PO SCH ×3 (09:00→20:37)
[2021-11-08] MEDS: CYANOCOBALAMIN (VITAMIN B-12) 1,000 MCG TABLET. PO SCH (09:00)
[2021-11-08] MEDS: CITALOPRAM 20 MG TABLET. PO SCH (09:00)
[2021-11-08] MEDS: CARBIDOPA/LEVODOPA CR 25/100MG TABLET.SA. PO SCH ×3 (09:00→20:37)
[2021-11-08] MEDS: MULTIVITAMIN with MINERAL TABLET. PO SCH (09:00)
[2021-11-08] MEDS: LACTOBACILLUS RHAMNOSUS GG 1 CAPSULE. PO SCH ×2 (09:00→20:37)
[2021-11-08] MEDS: BRIMONIDINE 0.2% OPHTH SOLUTION 5ML BOTTLE. OU SCH ×2 (09:07→20:37)
[2021-11-08] MEDS: TIMOLOL 0.5% OPHTH SOLUTION 5ML BOTTLE. OU SCH ×2 (09:07→20:37)
[2021-11-08] MEDS: CEFEPIME HCL IV Push 2 GM VIAL. IVP SCH ×2 (10:05→20:38)
--- NOTE | 2021-11-08 10:35 | PDOC ---
Provider Note Date of Service: DATE: 11/08/21 TIME: 10:34 Provider Note cefipime for calc osteo- glucose control good re insulin, labs stable, cont same Justifications for Admission Other Justification KAM WHITTAKER MD Nov 08, 2021 10:35
[2021-11-08 11:00] VITALS: BP 98/42
--- NOTE | 2021-11-08 11:17 | PDOC ---
Infectious Disease Note Subjective: Subjective Patient resting quietly arousable, does not answer all questions Appears comfortable No nausea vomiting fever abdominal pain or diarrhea reported Vascular input noted Discussed with nursing staff Vital Signs: Vital Signs Vital Signs Date Time Temp Pulse Resp B/P (MAP) Pulse Ox O2 Delivery O2 Flow Rate FiO2 11/08/21 11:00 99.0 66 18 98/42 (60) 98 Nasal Cannula 2.0 99.0 Physical Exam: PHYSICAL EXAM General patient resting quietly no acute distress HEENT normocephalic atraumatic no conjunctival lesions Neck supple Lungs clear Heart S1-S2 no murmurs Abdomen soft nontender nondistended bowel sounds present Extremities muscle atrophy chronic, multiple superficial abrasions present in bilateral legs. Left heel Rooke boots in place. Dressing intact. 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 His memory is very poor. Psych calm cooperative Derm warm dry no generalized rash except for above Medications: Inpatient Meds: Medications reviewed. Labs: Lab Laboratory Tests Test 11/07/21 11:53 11/07/21 16:37 11/07/21 17:00 11/07/21 20:20 Glucose (Fingerstick) 191 mg/dL (70-99) 316 mg/dL (70-99) Urine Collection Type Unknown Urine Color Yellow Urine Clarity Clear Urine pH 6.0 (<5.0-8.0) Urine Specific Archer 1.010 (1.000-1.030) Urine Protein Negative mg/dL (NEG-TRACE) Urine Glucose (UA) 100 mg/dL (NEG) Urine Ketones (Stick) 15 mg/dL (NEG) Urine Blood Negative (NEG) Urine Nitrite Negative (NEG) Urine Bilirubin Negative (NEG) Urine Urobilinogen Dipstick 0.2 mg/dL (0.2 mg/dL) Urine Leukocyte Esterase Small (NEG) Urine RBC 0 /HPF (0-2) Urine WBC 11-20 /HPF (0-4) Urine Squamous Epithelial Cells Few /LPF Urine Bacteria Few /HPF (0-FEW) Urine Mucus Mod /LPF Urine Yeast Present /HPF Vancomycin Level Trough 26.7 mcg/mL (10.0-20.0) Vancomycin Last Dose Date 11/07/21 Vancomycin Last Dose Time 0900 Test 11/07/21 21:05 11/08/21 04:00 11/08/21 07:34 Glucose (Fingerstick) 196 mg/dL (70-99) 128 mg/dL (70-99) Sodium Level 139 mmol/L (136-145) Potassium Level 4.2 mmol/L (3.5-5.1) Chloride Level 107 mmol/L (98-107) Carbon Dioxide Level 26 mmol/L (21-32) Anion Gap 6 (6-14) Blood Urea Nitrogen 12 mg/dL (8-26) Creatinine 1.5 mg/dL (0.7-1.3) Estimated GFR (Cockcroft-Gault) 45.4 Glucose Level 111 mg/dL (70-99) Calcium Level 8.2 mg/dL (8.5-10.1) Random Vancomycin Level 24.7 mcg/mL Micro PATIENT: BETH BOYD ACCOUNT: [id number] : 1945 LOCATION: MRI AGE: 76 SEX: M EXAM STATUS: PRE CLI ORD. PHYSICIAN: OTONIEL AGARWAL APRN REASON: DFU left heel with suspected oesteomyelitis 15mL CLARISCAN PROCEDURE: LOWER EXT NON JOINT WO/W LT EXAM: MRI LEFT ANKLE/HINDFOOT WITH AND WITHOUT IV CONTRAST DATE: 11/03/2021 10:45 AM CLINICAL INDICATION: Reason: DFU left heel with suspected oesteomyelitis COMPARISON: None. TECHNIQUE: Multiplanar, multisequence MR imaging of the left ankle was performed before and after the administration of IV contrast. FINDINGS: No ankle joint effusion. T1 marrow signal is preserved. No fracture or osteonecrosis. There is mild thickening of the Achilles tendon measuring 8 mm in AP dimension. No abnormal signal within the Achilles tendon. Tendons: Posterior tibialis, flexor digitorum longus and flexor hallucis longus tendons are intact. Peroneus longus and peroneus brevis tendons are intact. The peroneal tendons are anatomically positioned behind the lateral malleolus. Anterior tibialis, extensor digitorum longus and extensor hallucis longus t endons are intact. Achilles tendon intact with normal signal and morphology. Plantar fascia intact without marginal osteitis or soft tissue swelling. Physiologic fluid at the retrocalcaneal bursa. There is mild thickening and edema within the plantar fasc ia. Moderate edema and fatty atrophy within the associated muscle bellies. Ligaments: Medial deltoid stabilizers are intact. Lateral collateral stabilizing ligaments including the anterior talofibular ligament are intact. Anterior and posterior tibiofibular ligaments are intact. Spring ligament intact. Ligaments of the Sinus Tarsi are intact. Spaces/Places: Sinus Tarsi within normal limits, without mass lesion or edema pattern. Tarsal tunnel within normal limits, without mass lesion. Articular Cartilage/joint line: Articular cartilage at the tibiotalar joint preserved. Negative osteochondral lesion of the talar dome. Posterior and middle subtalar joint spaces are preserved. Marginal joint spaces appear preserved including calcaneocuboid joint. Bone/Bone Marrow: There is mild edema within the posterior calcaneus with mild decreased T1 marrow signal and subtle erosive change of the posterior calcaneus (for example image 14). IMPRESSION: 1. Posterior calcaneal edema and shallow T1 marrow replacement suspicious for osteomyelitis of the posterior calcaneus. 2. Plantar fascial thickening and edema, plantar fasciitis. 3. Edema and atrophy of the plantar muscles may be seen with denervation myositis. 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 ESR 45, CRP 19 Previous cultures from October 27, 2021 ENTEROCOCCUS FAECALIS STAPHYLOCOCCUS EPIDERMIDIS CORYNEBACTERIUM STRIATUM GRP Peripheral vascular disease Diabetes mellitus Small right heel eschar Muscle atrophy Dementia Parkinson's disease Anemia jail resident Plan: Plan of Care DC IV vancomycin due to TAL and high Vanco trough Monitor renal functions closely Continue cefepime, may need renal dosing Will start daptomycin tomorrow, may need renal dosing Maintain aspiration precautions Vascular input noted Agree that with his nonambulatory status, wound will likely worsen He remains at risk of sepsis, limb loss Offload Optimize nutritional status Optimize diabetes control Continue supportive care Continue aspiration precautions Discussed with ASH ROSE MD Nov 08, 2021 11:17
[2021-11-08] MEDS ORDERED: DAPTOmycin (GENERIC) IVPB 400 MG in IV NORMAL SALINE 50ML 50 ML IV SCH (13:00)
[2021-11-08 15:00] VITALS: BP 118/53
[2021-11-08 19:56] VITALS: BP 133/62
[2021-11-08] MEDS: DONEPEZIL HCL 10 MG TABLET. PO SCH (20:37)
[2021-11-08] MEDS: ATORVASTATIN CALCIUM 20 MG TABLET PO SCH (20:37)
[2021-11-08] MEDS: LATANOPROST 0.005% OPHTH SOLUTION 2.5ML BOTTLE. OU SCH (20:37)
[2021-11-08] MEDS: MIRTAZAPINE 15 MG TABLET PO SCH (20:37)
[2021-11-08] MEDS: ACETAMINOPHEN 325 MG TABLET. PO PRN (21:02)
[2021-11-08 23:30] VITALS: BP 123/66
[2021-11-09 03:56] VITALS: BP 167/73
[2021-11-09] MEDS: ACETAMINOPHEN 325 MG TABLET. PO PRN ×2 (04:07→08:10)
[2021-11-09] MEDS: LEVOTHYROXINE 75 MCG TABLET PO SCH (06:17)
[2021-11-09 07:00] VITALS: BP 148/64
[2021-11-09 07:56] LABS: CALCIUM 8.9 mg/dL (8.5-10.1); CREATININE 1.6 mg/dL (0.7-1.3); GFR 42.1; POTASSIUM 5.7 mmol/L (3.5-5.1)
[2021-11-09] MEDS: INSULIN LISPRO 300 UNITS/3 ML VIAL. SQ SCH ×3 (08:00→17:11)
[2021-11-09] MEDS: ALPRAZolam 0.25 MG TABLET PO SCH ×3 (08:06→20:28)
[2021-11-09] MEDS: CYANOCOBALAMIN (VITAMIN B-12) 1,000 MCG TABLET. PO SCH (08:07)
[2021-11-09] MEDS: MULTIVITAMIN with MINERAL TABLET. PO SCH (08:08)
[2021-11-09] MEDS: GABAPENTIN 100 MG CAPSULE. PO SCH ×3 (08:08→20:27)
[2021-11-09] MEDS: LACTOBACILLUS RHAMNOSUS GG 1 CAPSULE. PO SCH ×2 (08:08→20:27)
[2021-11-09] MEDS: CITALOPRAM 20 MG TABLET. PO SCH (08:08)
[2021-11-09] MEDS: SENNOSIDES/DOCUSATE 8.6/50MG TABLET. PO SCH ×2 (08:08→20:27)
[2021-11-09] MEDS: LISINOPRIL 10 MG TABLET PO SCH (08:09)
[2021-11-09] MEDS: FERROUS SULFATE 325 MG TABLET. PO SCH ×2 (08:09→17:04)
[2021-11-09] MEDS: POLYVINYL ALCOHOL 1.4% OPHTH SOLUTION 15ML BOTTLE. OU SCH ×4 (08:10→20:28)
[2021-11-09] MEDS: CARBIDOPA/LEVODOPA CR 25/100MG TABLET.SA. PO SCH ×3 (08:10→20:27)
[2021-11-09] MEDS: BRIMONIDINE 0.2% OPHTH SOLUTION 5ML BOTTLE. OU SCH ×2 (08:10→20:29)
[2021-11-09] MEDS: TIMOLOL 0.5% OPHTH SOLUTION 5ML BOTTLE. OU SCH ×2 (08:10→20:28)
[2021-11-09] MEDS: CEFEPIME HCL IV Push 2 GM VIAL. IVP SCH ×2 (08:10→20:28)
[2021-11-09] MEDS: ASPIRIN ENTERIC COATED 81 MG TABLET.DR. PO SCH (08:10)
[2021-11-09] MEDS: INSULIN GLARGINE SYRINGE. SQ SCH (08:23)
[2021-11-09] MEDS: DAPTOmycin (GENERIC) IVPB 400 MG in IV NORMAL SALINE 50ML 50 ML IV SCH (09:12)
[2021-11-09] MEDS ORDERED: IV NORMAL SALINE 1000ML BAG 1,000 ML IV ONE (09:30)
--- NOTE | 2021-11-09 09:39 | PDOC ---
Infectious Disease Note Subjective: Subjective Patient more alert today States feels cold No nausea vomiting fever abdominal pain or diarrhea reported Discussed with nursing staff Vital Signs: Vital Signs Vital Signs Date Time Temp Pulse Resp B/P (MAP) Pulse Ox O2 Delivery O2 Flow Rate FiO2 11/09/21 08:09 76 148/64 11/09/21 07:00 98.4 20 100 Nasal Cannula 2.0 98.4 Physical Exam: PHYSICAL EXAM General patient resting quietly no acute distress HEENT normocephalic atraumatic no conjunctival lesions Neck supple Lungs clear Heart S1-S2 no murmurs Abdomen soft nontender nondistended bowel sounds present Extremities muscle atrophy chronic, multiple superficial abrasions present in bilateral legs. Left heel Rooke boots in place. Dressing intact. 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 His memory is very poor. Psych calm cooperative Derm warm dry no generalized rash except for above Medications: Inpatient Meds: Medications reviewed. Labs: Lab Laboratory Tests Test 11/08/21 11:36 11/08/21 16:39 11/08/21 20:32 11/09/21 07:15 Glucose (Fingerstick) 146 mg/dL (70-99) 304 mg/dL (70-99) 281 mg/dL (70-99) Sodium Level 137 mmol/L (136-145) Potassium Level 5.7 mmol/L (3.5-5.1) Chloride Level 100 mmol/L (98-107) Carbon Dioxide Level 15 mmol/L (21-32) Anion Gap 22 (6-14) Blood Urea Nitrogen 18 mg/dL (8-26) Creatinine 1.6 mg/dL (0.7-1.3) Estimated GFR (Cockcroft-Gault) 42.1 Glucose Level 404 mg/dL (70-99) Calcium Level 8.9 mg/dL (8.5-10.1) Test 11/09/21 07:52 Glucose (Fingerstick) 368 mg/dL (70-99) Micro PATIENT: BETH BOYD ACCOUNT: [id number] : 1945 LOCATION: MRI AGE: 76 SEX: M EXAM STATUS: PRE CLI ORD. PHYSICIAN: OTONIEL AGARWAL APRN REASON: DFU left heel with suspected oesteomyelitis 15mL CLARISCAN PROCEDURE: LOWER EXT NON JOINT WO/W LT EXAM: MRI LEFT ANKLE/HINDFOOT WITH AND WITHOUT IV CONTRAST DATE: 11/03/2021 10:45 AM CLINICAL INDICATION: Reason: DFU left heel with suspected oesteomyelitis COMPARISON: None. TECHNIQUE: Multiplanar, multisequence MR imaging of the left ankle was performed before and after the administration of IV contrast. FINDINGS: No ankle joint effusion. T1 marrow signal is preserved. No fracture or osteonecrosis. There is mild thickening of the Achilles tendon measuring 8 mm in AP dimension. No abnormal signal within the Achilles tendon. Tendons: Posterior tibialis, flexor digitorum longus and flexor hallucis longus tendons are intact. Peroneus longus and peroneus brevis tendons are intact. The peroneal tendons are anatomically positioned behind the lateral malleolus. Anterior tibialis, extensor digitorum longus and extensor hallucis longus tendons are intact. Achilles tendon intact with normal signal and morphology. Plantar fascia intact without marginal osteitis or soft tissue swelling. Physiologic fluid at the retrocalcaneal bursa. There is mild thickening and edema within the plantar fascia. Moderate edema and fatty atrophy within the associated muscle bellies. Ligaments: Medial deltoid stabilizers are intact. Lateral collateral stabilizing ligaments including the anterior talofibular ligament are intact. Anterior and posterior tibiofibular ligaments are intact. Spring ligament intact. Ligaments of the Sinus Tarsi are intact. Spaces/Places: Sinus Tarsi within normal limits, without mass lesion or edema pattern. Tarsal tunnel within normal limits, without mass lesion. Articular Cartilage/joint line: Articular cartilage at the tibiotalar joint preserved. Negative osteochondral lesion of the talar dome. Posterior and middle subtalar joint spaces are preserved. Marginal joint spaces appear preserved including calcaneocuboid joint. Bone/Bone Marrow: There is mild edema within the posterior calcaneus with mild decreased T1 marrow signal and subtle erosive change of the posterior calcaneus (for example image 14). IMPRESSION: 1. Posterior calcaneal edema and shallow T1 marrow replacement suspicious for osteomyelitis of the posterior calcaneus. 2. Plantar fascial thickening and edema, plantar fasciitis. 3. Edema and atrophy of the plantar muscles may be seen with denervation myositis. 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 ESR 45, CRP 19 Previous cultures from October 27, 2021 ENTEROCOCCUS FAECALIS STAPHYLOCOCCUS EPIDERMIDIS CORYNEBACTERIUM STRIATUM GRP Peripheral vascular disease Diabetes mellitus Small right heel eschar Muscle atrophy Dementia Parkinson's disease Anemia pen[facility] resident Plan: Plan of Care Normal saline 1 L due to renal insufficiency Continue cefepime, may need renal dosing Continue daptomycin may need renal dosing Monitor renal functions closely BKA has been recommended by vascular team He remains at risk of sepsis, limb loss Offload Optimize nutritional status Optimize diabetes control Continue supportive care Continue aspiration precautions Discussed with ASH ROSE MD Nov 09, 2021 09:39
[2021-11-09 11:00] VITALS: BP 148/49
--- NOTE | 2021-11-09 11:27 | PDOC ---
Provider Note Date of Service: DATE: 11/09/21 TIME: 11:25 Provider Note bp up but K+ 5.7, will dc lisin and increase norvasc re same, repeat K+ tomorrow, rest same but more insulin re glucise levels Justifications for Admission Other Justification KAM WHITTAKER MD Nov 09, 2021 11:27
[2021-11-09 15:00] VITALS: BP 138/57
[2021-11-09 19:00] VITALS: BP 141/51
[2021-11-09] MEDS: MIRTAZAPINE 15 MG TABLET PO SCH (20:27)
[2021-11-09] MEDS: DONEPEZIL HCL 10 MG TABLET. PO SCH (20:27)
[2021-11-09] MEDS: ATORVASTATIN CALCIUM 20 MG TABLET PO SCH (20:27)
[2021-11-09] MEDS: LATANOPROST 0.005% OPHTH SOLUTION 2.5ML BOTTLE. OU SCH (20:29)
[2021-11-09 23:00] VITALS: BP 147/53
[2021-11-10] MEDS: ACETAMINOPHEN 325 MG TABLET. PO PRN (01:46)
[2021-11-10 03:00] VITALS: BP 146/48
[2021-11-10] MEDS: LEVOTHYROXINE 75 MCG TABLET PO SCH (06:13)
[2021-11-10 07:00] VITALS: BP 110/54
[2021-11-10 07:10] LABS: CALCIUM 9.1 mg/dL (8.5-10.1); CREATININE 1.6 mg/dL (0.7-1.3); GFR 42.1; POTASSIUM 4.7 mmol/L (3.5-5.1)
[2021-11-10] MEDS: ALPRAZolam 0.25 MG TABLET PO SCH ×3 (09:00→22:00)
[2021-11-10] MEDS ORDERED: IV NORMAL SALINE 1000ML BAG 1,000 ML IV ONE (09:00)
[2021-11-10] MEDS: CITALOPRAM 20 MG TABLET. PO SCH (09:00)
[2021-11-10] MEDS: INSULIN GLARGINE SYRINGE. SQ SCH (09:00)
[2021-11-10] MEDS: FERROUS SULFATE 325 MG TABLET. PO SCH ×2 (09:02→17:00)
[2021-11-10] MEDS: LACTOBACILLUS RHAMNOSUS GG 1 CAPSULE. PO SCH ×3 (09:02→22:00)
[2021-11-10] MEDS: ASPIRIN ENTERIC COATED 81 MG TABLET.DR. PO SCH (09:02)
[2021-11-10] MEDS: SENNOSIDES/DOCUSATE 8.6/50MG TABLET. PO SCH ×3 (09:02→22:00)
[2021-11-10] MEDS: MULTIVITAMIN with MINERAL TABLET. PO SCH (09:02)
[2021-11-10] MEDS: CARBIDOPA/LEVODOPA CR 25/100MG TABLET.SA. PO SCH ×4 (09:03→22:00)
[2021-11-10] MEDS: GABAPENTIN 100 MG CAPSULE. PO SCH ×4 (09:03→22:00)
[2021-11-10] MEDS: CYANOCOBALAMIN (VITAMIN B-12) 1,000 MCG TABLET. PO SCH (09:03)
[2021-11-10] MEDS: CEFEPIME HCL IV Push 2 GM VIAL. IVP SCH ×2 (09:05→21:48)
[2021-11-10] MEDS: TIMOLOL 0.5% OPHTH SOLUTION 5ML BOTTLE. OU SCH ×2 (09:06→22:05)
[2021-11-10] MEDS: BRIMONIDINE 0.2% OPHTH SOLUTION 5ML BOTTLE. OU SCH ×2 (09:06→22:05)
[2021-11-10] MEDS: POLYVINYL ALCOHOL 1.4% OPHTH SOLUTION 15ML BOTTLE. OU SCH ×4 (09:07→21:58)
[2021-11-10] MEDS: IV NORMAL SALINE 1000ML BAG 1,000 ML IV SCH ×2 (09:15→21:47)
[2021-11-10] MEDS: INSULIN LISPRO 300 UNITS/3 ML VIAL. SQ SCH ×2 (09:18→12:40)
--- NOTE | 2021-11-10 09:28 | PN ---
DATE: 11/10/2021 DAILY PROGRESS NOTE LOCATION: He is in room 442. SUBJECTIVE: This 76-year-old male remains hospitalized with osteomyelitis, left heel and acute kidney injury. He was hyperkalemic yesterday and this is improved. His CO2 level has fallen, so I am worrisome for some development of DKA, again with some increase in his blood sugars and IV fluids will be started along with the increase in insulin ordered yesterday. OBJECTIVE: VITAL SIGNS: Stable. He is afebrile. GENERAL: He is awake and alert. Denies complaints. CHEST: Clear to auscultation. HEART: Regular rate and rhythm. ABDOMEN: Benign. EXTREMITIES: Both legs are in [place] boots. LABORATORY DATA: Sugars again are labile, which is his norm. ASSESSMENT: 1. Osteomyelitis of left heel. 2. Type 1 diabetes, labile. 3. Question of early diabetic ketoacidosis. PLAN: Start IV fluids. Follow renal function, CO2. Increase insulin as ordered and we will see how he responds to the same. NAHOMY DR: Santiago TID: [id number]
[2021-11-10] MEDS: DAPTOmycin (GENERIC) IVPB 400 MG in IV NORMAL SALINE 50ML 50 ML IV SCH (09:29)
--- NOTE | 2021-11-10 10:42 | PDOC ---
Infectious Disease Note Subjective: Subjective Patient sleepy but arousable No nausea vomiting fever abdominal pain or diarrhea reported Discussed with nursing staff Vital Signs: Vital Signs Vital Signs Date Time Temp Pulse Resp B/P (MAP) Pulse Ox O2 Delivery O2 Flow Rate FiO2 11/10/21 09:06 75 110/54 11/10/21 07:00 97.9 20 100 Nasal Cannula 2.0 97.9 Physical Exam: PHYSICAL EXAM General patient resting quietly no acute distress HEENT normocephalic atraumatic no conjunctival lesions Neck supple Lungs clear Heart S1-S2 no murmurs Abdomen soft nontender nondistended bowel sounds present briefs in place Extremities muscle atrophy chronic, multiple superficial abrasions present in bilateral legs. Left heel Rooke boots in place. Dressing intact. 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 His memory is very poor. Psych calm cooperative Derm warm dry no generalized rash except for above Medications: Inpatient Meds: Medications reviewed. Labs: Lab Laboratory Tests Test 11/09/21 11:28 11/09/21 16:50 11/09/21 20:59 11/10/21 06:10 Glucose (Fingerstick) 365 mg/dL (70-99) 353 mg/dL (70-99) 252 mg/dL (70-99) Sodium Level 136 mmol/L (136-145) Potassium Level 4.7 mmol/L (3.5-5.1) Chloride Level 102 mmol/L (98-107) Carbon Dioxide Level 19 mmol/L (21-32) Anion Gap 15 (6-14) Blood Urea Nitrogen 17 mg/dL (8-26) Creatinine 1.6 mg/dL (0.7-1.3) Estimated GFR (Cockcroft-Gault) 42.1 Glucose Level 320 mg/dL (70-99) Calcium Level 9.1 mg/dL (8.5-10.1) Test 11/10/21 07:56 Glucose (Fingerstick) 286 mg/dL (70-99) Micro PATIENT: BETH BOYD ACCOUNT: [id number] : 1945 LOCATION: MRI AGE: 76 SEX: M EXAM STATUS: PRE CLI ORD. PHYSICIAN: OTONIEL AGARWAL APRN REASON: DFU left heel with suspected oesteomyelitis 15mL CLARISCAN PROCEDURE: LOWER EXT NON JOINT WO/W LT EXAM: MRI LEFT ANKLE/HINDFOOT WITH AND WITHOUT IV CONTRAST DATE: 11/03/2021 10:45 AM CLINICAL INDICATION: Reason: DFU left heel with suspected oesteomyelitis COMPARISON: None. TECHNIQUE: Multiplanar, multisequence MR imaging of the left ankle was performed before and after the administration of IV contrast. FINDINGS: No ankle joint effusion. T1 marrow signal is preserved. No fracture or osteonecrosis. There is mild thickening of the Achilles tendon measuring 8 mm in AP dimension. No abnormal signal within the Achilles tendon. Tendons: Posterior tibialis, flexor digitorum longus and flexor hallucis longus tendons are intact. Peroneus longus and peroneus brevis tendons are intact. The peroneal tendons are anatomically positioned behind the lateral malleolus. Anterior tibialis, extensor digitorum longus and extensor hallucis longus tendons are intact. Achilles tendon intact with normal signal and morphology. Plantar fascia intact without marginal osteitis or soft tissue swelling. Physiologic fluid at the retrocalcaneal bursa. There is mild thickening and edema within the plantar fascia. Moderate edema and fatty atrophy within the associated muscle bellies. Ligaments: Medial deltoid stabilizers are intact. Lateral collateral stabilizing ligaments including the anterior talofibular ligament are intact. Anterior and posterior tibiofibular ligaments are intact. Spring ligament intact. Ligaments of the Sinus Tarsi are intact. Spaces/Places: Sinus Tarsi within normal limits, without mass lesion or edema pattern. Tarsal tunnel within normal limits, without mass lesion. Articular Cartilage/joint line: Articular cartilage at the tibiotalar joint preserved. Negative osteochondral lesion of the talar dome. Posterior and middle subtalar joint spaces are preserved. Marginal joint spaces appear preserved including calcaneocuboid joint. Bone/Bone Marrow: There is mild edema within the posterior calcaneus with mild decreased T1 marrow signal and subtle erosive change of the posterior calcaneus (for example image 14). IMPRESSION: 1. Posterior calcaneal edema and shallow T1 marrow replacement suspicious for osteomyelitis of the posterior calcaneus. 2. Plantar fascial thickening and edema, plantar fasciitis. 3. Edema and atrophy of the plantar muscles may be seen with denervation myositis. 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 ESR 45, CRP 19 Previous cultures from October 27, 2021 ENTEROCOCCUS FAECALIS STAPHYLOCOCCUS EPIDERMIDIS CORYNEBACTERIUM STRIATUM GRP Peripheral vascular disease Diabetes mellitus Small right heel eschar Muscle atrophy Dementia Parkinson's disease Anemia detention resident Plan: Plan of Care Normal saline 1 L due to renal insufficiency again today Continue cefepime, may need renal dosing Continue daptomycin may need renal dosing Monitor renal functions closely BKA has been recommended by vascular team He remains at risk of sepsis, limb loss Offload Optimize nutritional status Optimize diabetes control Continue supportive care Continue aspiration precautions Discussed with ASH ROSE MD Nov 10, 2021 10:42
[2021-11-10 10:56] VITALS: BP 104/59
[2021-11-10 15:00] VITALS: BP 97/43
[2021-11-10 19:00] VITALS: BP 99/57
[2021-11-10] MEDS: LATANOPROST 0.005% OPHTH SOLUTION 2.5ML BOTTLE. OU SCH (21:51)
[2021-11-10] MEDS: MIRTAZAPINE 15 MG TABLET PO SCH ×2 (21:55→22:00)
[2021-11-10] MEDS: DONEPEZIL HCL 10 MG TABLET. PO SCH ×2 (21:56→22:00)
[2021-11-10] MEDS: ATORVASTATIN CALCIUM 20 MG TABLET PO SCH (22:00)
--- NOTE | 2021-11-10 22:20 | NUR ---
Patient drowsy, hard to arouse. RN performed a sternum rub and patient finally opened eyes and looked around. Patient did respond with facial grimace as he was being turned, but drifted back off to sleep. HS medications held due to patient unable to stay awake, concerned about ability to swallow medications while in drowsy state. RN will continue to monitor.
[2021-11-10 23:00] VITALS: BP 92/40
--- NOTE | 2021-11-11 00:31 | NUR ---
RN in room checking on patient. Patient is responsive to touch. Eyes opened when RN touched his shoulder. Will continue to monitor.
[2021-11-11 03:00] VITALS: BP 146/64
[2021-11-11 05:11] LABS: CALCIUM 8.2 mg/dL (8.5-10.1); CREATININE 1.5 mg/dL (0.7-1.3); GFR 45.4; POTASSIUM 4.2 mmol/L (3.5-5.1)
[2021-11-11] MEDS: LEVOTHYROXINE 75 MCG TABLET PO SCH (06:15)
[2021-11-11 07:15] VITALS: BP 150/50
[2021-11-11] MEDS: FERROUS SULFATE 325 MG TABLET. PO SCH ×2 (08:00→14:12)
[2021-11-11] MEDS: INSULIN LISPRO 300 UNITS/3 ML VIAL. SQ SCH ×4 (08:00→16:53)
--- NOTE | 2021-11-11 08:06 | PN ---
DATE: 11/11/2021 LOCATION: He is in room 442. SUBJECTIVE: This 76-year-old male remains hospitalized with osteomyelitis of left heel and acute kidney injury. He was a little bit acidotic yesterday which is improved with some IV hydration, suggesting some beginning may be of some DKA. He awakens as alert. Denies any major complaints. Wants to continue to try to save his leg. OBJECTIVE: VITAL SIGNS: Stable. He is afebrile. GENERAL: Awake, alert. Denies complaints. CHEST: Clear to auscultation. HEART: Regular rate and rhythm. ABDOMEN: Benign. Both legs are in boots. Sugars have been a little bit improved. LABORATORY DATA: Creatinine is down to 1.5 this morning, CO2 up to 20. PLAN: Continue IV hydration. Follow renal function, CO2. Continue present wound care, IV antibiotics, etc. REUBEN DR: KULDEEP/leatha TID: [id number]
[2021-11-11] MEDS: CITALOPRAM 20 MG TABLET. PO SCH (09:00)
[2021-11-11] MEDS: POLYVINYL ALCOHOL 1.4% OPHTH SOLUTION 15ML BOTTLE. OU SCH ×4 (09:00→22:04)
[2021-11-11] MEDS: MULTIVITAMIN with MINERAL TABLET. PO SCH (09:00)
[2021-11-11] MEDS: GABAPENTIN 100 MG CAPSULE. PO SCH ×3 (09:00→22:05)
[2021-11-11] MEDS: ASPIRIN ENTERIC COATED 81 MG TABLET.DR. PO SCH (09:00)
[2021-11-11] MEDS: CARBIDOPA/LEVODOPA CR 25/100MG TABLET.SA. PO SCH ×3 (09:00→22:05)
[2021-11-11] MEDS: BRIMONIDINE 0.2% OPHTH SOLUTION 5ML BOTTLE. OU SCH ×2 (09:00→22:03)
[2021-11-11] MEDS: SENNOSIDES/DOCUSATE 8.6/50MG TABLET. PO SCH ×2 (09:00→22:05)
[2021-11-11] MEDS: TIMOLOL 0.5% OPHTH SOLUTION 5ML BOTTLE. OU SCH ×2 (09:00→22:04)
[2021-11-11] MEDS: ALPRAZolam 0.25 MG TABLET PO SCH ×3 (09:00→22:05)
[2021-11-11] MEDS: LACTOBACILLUS RHAMNOSUS GG 1 CAPSULE. PO SCH ×2 (09:00→22:04)
[2021-11-11] MEDS: CYANOCOBALAMIN (VITAMIN B-12) 1,000 MCG TABLET. PO SCH (09:00)
[2021-11-11] MEDS: IV NORMAL SALINE 1000ML BAG 1,000 ML IV SCH (09:30)
[2021-11-11] MEDS: DAPTOmycin (GENERIC) IVPB 400 MG in IV NORMAL SALINE 50ML 50 ML IV SCH (09:31)
[2021-11-11] MEDS: CEFEPIME HCL IV Push 2 GM VIAL. IVP SCH ×2 (09:34→22:03)
[2021-11-11] MEDS: INSULIN GLARGINE SYRINGE. SQ SCH (09:44)
--- NOTE | 2021-11-11 10:20 | PDOC ---
Infectious Disease Note Subjective: Subjective Patient sleepy but arousable Lethargic today No nausea vomiting fever abdominal pain or diarrhea reported Discussed with nursing staff Vital Signs: Vital Signs Vital Signs Date Time Temp Pulse Resp B/P (MAP) Pulse Ox O2 Delivery O2 Flow Rate FiO2 11/11/21 07:15 99.3 64 20 150/50 (83) 99 Nasal Cannula 2.0 99.3 Physical Exam: PHYSICAL EXAM General patient resting quietly no acute distress HEENT normocephalic atraumatic no conjunctival lesions Neck supple Lungs clear Heart S1-S2 no murmurs Abdomen soft nontender nondistended bowel sounds present briefs in place Extremities muscle atrophy chronic, multiple superficial abrasions present in bilateral legs. Left heel Rooke boots in place. Dressing intact. 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 His memory is very poor. Psych calm cooperative Derm warm dry no generalized rash except for above Medications: Inpatient Meds: Medications reviewed. Labs: Lab Laboratory Tests Test 11/10/21 11:47 11/10/21 16:38 11/10/21 21:14 11/11/21 03:45 Glucose (Fingerstick) 277 mg/dL (70-99) 220 mg/dL (70-99) 216 mg/dL (70-99) Sodium Level 136 mmol/L (136-145) Potassium Level 4.2 mmol/L (3.5-5.1) Chloride Level 105 mmol/L (98-107) Carbon Dioxide Level 20 mmol/L (21-32) Anion Gap 11 (6-14) Blood Urea Nitrogen 16 mg/dL (8-26) Creatinine 1.5 mg/dL (0.7-1.3) Estimated GFR (Cockcroft-Gault) 45.4 Glucose Level 204 mg/dL (70-99) Calcium Level 8.2 mg/dL (8.5-10.1) Creatine Kinase 35 U/L (39-308) Test 11/11/21 07:04 Glucose (Fingerstick) 220 mg/dL (70-99) Micro PATIENT: BETH BOYD ACCOUNT: [id number] : 1945 LOCATION: MRI AGE: 76 SEX: M EXAM STATUS: PRE CLI ORD. PHYSICIAN: OTONIEL AGARWAL APRN REASON: DFU left heel with suspected oesteomyelitis 15mL CLARISCAN PROCEDURE: LOWER EXT NON JOINT WO/W LT EXAM: MRI LEFT ANKLE/HINDFOOT WITH AND WITHOUT IV CONTRAST DATE: 11/03/2021 10:45 AM CLINICAL INDICATION: Reason: DFU left heel with suspected oesteomyelitis COMPARISON: None. TECHNIQUE: Multiplanar, multisequence MR imaging of the left ankle was performed before and after the administration of IV contrast. FINDINGS: No ankle joint effusion. T1 marrow signal is preserved. No fracture or osteonecrosis. There is mild thickening of the Achilles tendon measuring 8 mm in AP dimension. No abnormal signal within the Achilles tendon. Tendons: Posterior tibialis, flexor digitorum longus and flexor hallucis longus tendons are intact. Peroneus longus and peroneus brevis tendons are intact. The peroneal tendons are anatomically positioned behind the lateral malleolus. Anterior tibialis, extensor digitorum longus and extensor hallucis longus tendons are intact. Achilles tendon intact with normal signal and morphology. Plantar fascia intact without marginal osteitis or soft tissue swelling. Physiologic fluid at the retrocalcaneal bursa. There is mild thickening and edema within the plantar fascia. Moderate edema and fatty atrophy within the associated muscle bellies. Ligaments: Medial deltoid stabilizers are intact. Lateral collateral stabilizing ligaments including the anterior talofibular ligament are intact. Anterior and posterior tibiofibular ligaments are intact. Spring ligament intact. Ligaments of the Sinus Tarsi are intact. Spaces/Places: Sinus Tarsi within normal limits, without mass lesion or edema pattern. Tarsal tunnel within normal limits, without mass lesion. Articular Cartilage/joint line: Articular cartilage at the tibiotalar joint preserved. Negative osteochondral lesion of the talar dome. Posterior and middle subtalar joint spaces are preserved. Marginal joint spaces appear preserved including calcaneocuboid joint. Bone/Bone Marrow: There is mild edema within the posterior calcaneus with mild decreased T1 marrow signal and subtle erosive change of the posterior calcaneus (for example image 14). IMPRESSION: 1. Posterior calcaneal edema and shallow T1 marrow replacement suspicious for osteomyelitis of the posterior calcaneus. 2. Plantar fascial thickening and edema, plantar fasciitis. 3. Edema and atrophy of the plantar muscles may be seen with denervation myositis. 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 ESR 45, CRP 19 Previous cultures from October 27, 2021 ENTEROCOCCUS FAECALIS STAPHYLOCOCCUS EPIDERMIDIS CORYNEBACTERIUM STRIATUM GRP Peripheral vascular disease Diabetes mellitus Small right heel eschar Muscle atrophy Dementia Parkinson's disease Anemia intermediate resident Plan: Plan of Care Normal saline 1 L due to renal insufficiency again today Monitor renal functions closely Continue cefepime, may need renal dosing Continue daptomycin may need renal dosing Agree with BKA has been recommended by vascular team due to his nonambulatory state. If not done, he remains at risk of sepsis, limb loss Offload Optimize diabetes control Continue supportive care Continue aspiration precautions Discussed with ASH ROSE MD Nov 11, 2021 10:20
[2021-11-11 10:54] VITALS: BP 136/61
[2021-11-11 14:44] VITALS: BP 139/71
[2021-11-11 19:00] VITALS: BP 151/46
[2021-11-11] MEDS: LATANOPROST 0.005% OPHTH SOLUTION 2.5ML BOTTLE. OU SCH (22:04)
[2021-11-11] MEDS: ATORVASTATIN CALCIUM 20 MG TABLET PO SCH (22:04)
[2021-11-11] MEDS: MIRTAZAPINE 15 MG TABLET PO SCH (22:05)
[2021-11-11] MEDS: DONEPEZIL HCL 10 MG TABLET. PO SCH (22:05)
[2021-11-11 23:17] VITALS: BP 110/60
[2021-11-12] VITALS (7 sets, daily range): BP systolic 68–157; BP diastolic 36–69
[2021-11-12] MEDS: LEVOTHYROXINE 75 MCG TABLET PO SCH (07:08)
[2021-11-12 07:32] LABS: CALCIUM 9.2 mg/dL (8.5-10.1); CREATININE 1.5 mg/dL (0.7-1.3); GFR 45.4; POTASSIUM 3.6 mmol/L (3.5-5.1)
[2021-11-12] MEDS: INSULIN LISPRO 300 UNITS/3 ML VIAL. SQ SCH ×3 (08:00→17:00)
[2021-11-12] MEDS: CYANOCOBALAMIN (VITAMIN B-12) 1,000 MCG TABLET. PO SCH (09:00)
[2021-11-12] MEDS: ASPIRIN ENTERIC COATED 81 MG TABLET.DR. PO SCH (09:00)
[2021-11-12] MEDS: SENNOSIDES/DOCUSATE 8.6/50MG TABLET. PO SCH ×2 (09:00→20:54)
[2021-11-12] MEDS: MULTIVITAMIN with MINERAL TABLET. PO SCH (09:00)
[2021-11-12] MEDS: GABAPENTIN 100 MG CAPSULE. PO SCH ×3 (09:00→20:54)
[2021-11-12] MEDS: CITALOPRAM 20 MG TABLET. PO SCH (09:00)
[2021-11-12] MEDS: CARBIDOPA/LEVODOPA CR 25/100MG TABLET.SA. PO SCH ×3 (09:00→20:54)
[2021-11-12] MEDS: LACTOBACILLUS RHAMNOSUS GG 1 CAPSULE. PO SCH ×2 (09:00→20:53)
[2021-11-12] MEDS: FERROUS SULFATE 325 MG TABLET. PO SCH ×2 (09:03→17:00)
[2021-11-12] MEDS: ALPRAZolam 0.25 MG TABLET PO SCH ×3 (09:04→21:00)
[2021-11-12] MEDS: CEFEPIME HCL IV Push 2 GM VIAL. IVP SCH (09:08)
[2021-11-12] MEDS: BRIMONIDINE 0.2% OPHTH SOLUTION 5ML BOTTLE. OU SCH ×2 (09:12→20:53)
[2021-11-12] MEDS: LATANOPROST 0.005% OPHTH SOLUTION 2.5ML BOTTLE. OU SCH (09:12)
[2021-11-12] MEDS: POLYVINYL ALCOHOL 1.4% OPHTH SOLUTION 15ML BOTTLE. OU SCH ×4 (09:12→20:53)
[2021-11-12] MEDS: TIMOLOL 0.5% OPHTH SOLUTION 5ML BOTTLE. OU SCH ×2 (09:12→20:53)
[2021-11-12] MEDS: DAPTOmycin (GENERIC) IVPB 400 MG in IV NORMAL SALINE 50ML 50 ML IV SCH (09:32)
[2021-11-12] MEDS: INSULIN GLARGINE SYRINGE. SQ SCH (10:06)
--- NOTE | 2021-11-12 10:30 | PDOC ---
Infectious Disease Note Subjective: Subjective Patient sleepy but arousable Opens eyes, but does not answer any questions Discussed with nursing staff Vital Signs: Vital Signs Vital Signs Date Time Temp Pulse Resp B/P (MAP) Pulse Ox O2 Delivery O2 Flow Rate FiO2 11/12/21 10:03 77 142/67 (92) 11/12/21 07:00 99.3 22 99 Nasal Cannula 3.0 99.3 Physical Exam: PHYSICAL EXAM General patient resting quietly no acute distress HEENT normocephalic atraumatic no conjunctival lesions Neck supple Lungs clear Heart S1-S2 no murmurs Abdomen soft nontender nondistended bowel sounds present briefs in place Extremities muscle atrophy chronic, multiple superficial abrasions present in bilateral legs. Left heel Rooke boots in place. Dressing intact. 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 His memory is very poor. Psych calm cooperative Derm warm dry no generalized rash except for above Medications: Inpatient Meds: Medications reviewed. Labs: Lab Laboratory Tests Test 11/11/21 11:25 11/11/21 16:43 11/11/21 21:43 11/12/21 06:25 Glucose (Fingerstick) 201 mg/dL (70-99) 128 mg/dL (70-99) 125 mg/dL (70-99) Sodium Level 144 mmol/L (136-145) Potassium Level 3.6 mmol/L (3.5-5.1) Chloride Level 111 mmol/L (98-107) Carbon Dioxide Level 16 mmol/L (21-32) Anion Gap 17 (6-14) Blood Urea Nitrogen 17 mg/dL (8-26) Creatinine 1.5 mg/dL (0.7-1.3) Estimated GFR (Cockcroft-Gault) 45.4 Glucose Level 69 mg/dL (70-99) Calcium Level 9.2 mg/dL (8.5-10.1) Test 11/12/21 08:08 11/12/21 10:03 Glucose (Fingerstick) 70 mg/dL (70-99) 122 mg/dL (70-99) Micro PATIENT: BETH BOYD ACCOUNT: [id number] : 1945 LOCATION: MRI AGE: 76 SEX: M EXAM STATUS: PRE CLI ORD. PHYSICIAN: OTONIEL AGARWAL APRN REASON: DFU left heel with suspected oesteomyelitis 15mL CLARISCAN PROCEDURE: LOWER EXT NON JOINT WO/W LT EXAM: MRI LEFT ANKLE/HINDFOOT WITH AND WITHOUT IV CONTRAST DATE: 11/03/2021 10:45 AM CLINICAL INDICATION: Reason: DFU left heel with suspected oesteomyelitis COMPARISON: None. TECHNIQUE: Multiplanar, multisequence MR imaging of the left ankle was performed before and after the administration of IV contrast. FINDINGS: No ankle joint effusion. T1 marrow signal is preserved. No fracture or osteonecrosis. There is mild thickening of the Achilles tendon measuring 8 mm in AP dimension. No abnormal signal within the Achilles tendon. Tendons: Posterior tibialis, flexor digitorum longus and flexor hallucis longus tendons are intact. Peroneus longus and peroneus brevis tendons are intact. The peroneal tendons are anatomically positioned behind the lateral malleolus. Anterior tibialis, extensor digitorum longus and extensor hallucis longus tendons are intact. Achilles tendon intact with normal signal and morphology. Plantar fascia intact without marginal osteitis or soft tissue swelling. Physiologic fluid at the retrocalcaneal bursa. There is mild thickening and edema within the plantar fascia. Moderate edema and fatty atrophy within the associated muscle bellies. Ligaments: Medial deltoid stabilizers are intact. Lateral collateral stabilizing ligaments including the anterior talofibular ligament are intact. Anterior and posterior tibiofibular ligaments are intact. Spring ligament intact. Ligaments of the Sinus Tarsi are intact. Spaces/Places: Sinus Tarsi within normal limits, without mass lesion or edema pattern. Tarsal tunnel within normal limits, without mass lesion. Articular Cartilage/joint line: Articular cartilage at the tibiotalar joint preserved. Negative osteochondral lesion of the talar dome. Posterior and middle subtalar joint spaces are preserved. Marginal joint spaces appear preserved including calcaneocuboid joint. Bone/Bone Marrow: There is mild edema within the posterior calcaneus with mild decreased T1 marrow signal and subtle erosive change of the posterior calcaneus (for example image 14). IMPRESSION: 1. Posterior calcaneal edema and shallow T1 marrow replacement suspicious for osteomyelitis of the posterior calcaneus. 2. Plantar fascial thickening and edema, plantar fasciitis. 3. Edema and atrophy of the plantar muscles may be seen with denervation myositis. 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 ESR 45, CRP 19 Previous cultures from October 27, 2021 ENTEROCOCCUS FAECALIS STAPHYLOCOCCUS EPIDERMIDIS CORYNEBACTERIUM STRIATUM GRP Peripheral vascular disease Diabetes mellitus Small right heel eschar Muscle atrophy Dementia Parkinson's disease Anemia [facility] resident Plan: Plan of Care Renal failure management per primary DC cefepime due to confusion, start ceftriaxone and empiric Flagyl Continue daptomycin may need renal dosing Agree with BKA has been recommended by vascular team due to his nonambulatory state. If not done, he remains at risk of sepsis, limb loss Offload Optimize diabetes control Continue supportive care Continue aspiration precautions Discussed with ASH ROSE MD Nov 12, 2021 10:30
[2021-11-12] MEDS: cefTRIAXone IV Push 2 GM VIAL. IVP SCH (10:58)
[2021-11-12] MEDS: metroNIDAZOLE 500 MG TABLET PO SCH ×2 (12:00→20:54)
--- NOTE | 2021-11-12 16:49 | NUR ---
Wound/Ostomy Care Wound Type/Assessment: Wound care follow up on left heel DFU and coccyx PU stage II. Right heel is now healed, no open areas noted, foam applied for protection along with heel medix boots. Left heel has deteriorated, new intact blister noted to medial side of heel. Pt has multiple scabs on legs that are in different stages of healing. All wounds cleansed and measured. Pt moans while doing dressing changes but is not able to communicate what bothers him, while pt was on his side for coccyx assessment, he started gagging, pt was sat up and he has an episode of small green emesis with some undigested eggs, this was communicated with primary nurse. Pt left on his back in case he needed to vomited again. Legs elevated on pillows with heel medix boots in place. Treatment Recommendations/Plan: Cleanse all wounds and pat dry. Left heel: apply iodoflex (remove white mesh) then cover with foam, change every 2-3 days. Coccyx: apply calazime cream bid and prn. Right heel: apply foam for protection, change 1-2 per week. Heel medix boots at all times Education provided: unable to educate pt d/t mental status Offloading surface/device: purple wedge, pillows, heel medix boots Recommended Referrals/Tests: n/a Discharge Recommendations for dressings: same as above.
[2021-11-12 17:46] LABS: BASE EXCESS ABG -4 mmol/L (-3-3); HCO3 ABG 21 mmol/L (21-28); PCO2 ABG 37 mmHg (35-46); PO2 ABG 80 mmHg (65-108); SAT O2 ABG 95 % (92-99)
[2021-11-12 17:49] LABS: FIO2 ABG room air
[2021-11-12] MEDS: DONEPEZIL HCL 10 MG TABLET. PO SCH (20:53)
[2021-11-12] MEDS: ATORVASTATIN CALCIUM 20 MG TABLET PO SCH (20:54)
[2021-11-12] MEDS: MIRTAZAPINE 15 MG TABLET PO SCH (20:54)
--- NOTE | 2021-11-13 01:43 | PN ---
DATE: 11/12/2021 DAILY PROGRESS NOTE LOCATION: He is in room 442. SUBJECTIVE: This 76-year-old male remains hospitalized with osteomyelitis of left heel, acute kidney injury. He also has been running some acidosis, which was improving, but today his CO2 has gotten a little worse. I am not sure what is driving the bus at this point as his sugars have been very good. He awakens and tells me that he overall does not feel good, but denies any major complaints. He still does not want an amputation. OBJECTIVE: VITAL SIGNS: Stable. He is afebrile. Sugars are much better. CHEST: Clear to auscultation. HEART: Regular rate and rhythm. ABDOMEN: Benign. EXTREMITIES: Both legs remain in boots. CO2 is down to 16 this morning. We will recheck in the morning and if it is still low, get a blood gas. I had a couple of conversations with case management today regarding discharge and it will depend on IV antibiotics and what ID feels, is the best course going forward. ASSESSMENT: 1. Osteomyelitis, left heel. 2. Insulin-dependent diabetes. 3. Acidosis. 4. Acute kidney injury. 5. Peripheral arterial disease. PLAN: Continue present care and follow labs closely. KULDEEP/YOUSUF/DEREK DR: KULDEEP/leatha TID: [id number]
[2021-11-13 03:15] VITALS: BP 157/62
[2021-11-13] MEDS: LEVOTHYROXINE 75 MCG TABLET PO SCH (05:54)
[2021-11-13 07:00] VITALS: BP 152/66
[2021-11-13] MEDS: INSULIN LISPRO 300 UNITS/3 ML VIAL. SQ SCH ×3 (08:00→17:00)
[2021-11-13] MEDS: FERROUS SULFATE 325 MG TABLET. PO SCH ×2 (08:00→17:00)
--- NOTE | 2021-11-13 08:53 | PDOC ---
Infectious Disease Note Subjective: Subjective Patient awake,Opens eyes, but does not answer any questions Moans intermittently Discussed with nursing staff Vital Signs: Vital Signs Vital Signs Date Time Temp Pulse Resp B/P (MAP) Pulse Ox O2 Delivery O2 Flow Rate FiO2 11/13/21 03:15 98.1 69 22 157/62 (93) 100 Nasal Cannula 2.0 98.1 Physical Exam: PHYSICAL EXAM General patient awake opens eyes but does not answer any questions HEENT normocephalic atraumatic no conjunctival lesions Neck supple Lungs clear Heart S1-S2 no murmurs Abdomen soft nontender nondistended bowel sounds present briefs in place Extremities muscle atrophy chronic, multiple superficial abrasions present in bilateral legs. Left heel Rooke boots in place. Dressing intact. 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 Psych calm cooperative Derm warm dry no generalized rash except for above Medications: Inpatient Meds: Medications reviewed. Labs: Lab Laboratory Tests Test 11/12/21 10:03 11/12/21 12:14 11/12/21 16:33 11/12/21 17:35 Glucose (Fingerstick) 122 mg/dL (70-99) 125 mg/dL (70-99) 111 mg/dL (70-99) O2 Saturation 95 % (92-99) Arterial Blood pH 7.37 (7.35-7.45) Arterial Blood pCO2 at Patient Temp 37 mmHg (35-46) Arterial Blood pO2 at Patient Temp 80 mmHg (65-108) Arterial Blood HCO3 21 mmol/L (21-28) Arterial Blood Base Excess -4 mmol/L (-3-3) FiO2 room air Test 11/12/21 20:33 Glucose (Fingerstick) 80 mg/dL (70-99) Micro PATIENT: BETH BOYD ACCOUNT: [id number] : 1945 LOCATION: MRI AGE: 76 SEX: M EXAM STATUS: PRE CLI ORD. PHYSICIAN: OTONIEL AGARWAL APRN REASON: DFU left heel with suspected oesteomyelitis 15mL CLARISCAN PROCEDURE: LOWER EXT NON JOINT WO/W LT EXAM: MRI LEFT ANKLE/HINDFOOT WITH AND WITHOUT IV CONTRAST DATE: 11/03/2021 10:45 AM CLINICAL INDICATION: Reason: DFU left heel with suspected oesteomyelitis COMPARISON: None. TECHNIQUE: Multiplanar, multisequence MR imaging of the left ankle was performed before and after the administration of IV contrast. FINDINGS: No ankle joint effusion. T1 marrow signal is preserved. No fracture or osteonecrosis. There is mild thickening of the Achilles tendon measuring 8 mm in AP dimension. No abnormal signal within the Achilles tendon. Tendons: Posterior tibialis, flexor digitorum longus and flexor hallucis longus tendons are intact. Peroneus longus and peroneus brevis tendons are intact. The peroneal tendons are anatomically positioned behind the lateral malleolus. Anterior tibialis, extensor digitorum longus and extensor hallucis longus tendons are intact. Achilles tendon intact with normal signal and morphology. Plantar fascia intact without marginal osteitis or soft tissue swelling. Physiologic fluid at the ret rocalcaneal bursa. There is mild thickening and edema within the plantar fascia. Moderate edema and fatty atrophy within the associated muscle bellies. Ligaments: Medial deltoid stabilizers are intact. Lateral collateral stabilizing ligaments including the anterior talofibular ligament are intact. Anterior and posterior tibiofibular ligaments are intact. Spring ligament intact. Ligaments of the Sinus Tarsi are intact. Spaces/Places: Sinus Tarsi within normal limits, without mass lesion or edema pattern. Tarsal tunnel within normal limits, without mass lesion. Articular Cartilage/joint line: Articular cartilage at the tibiotalar joint preserved. Negative osteochondral lesion of the talar dome. Posterior and middle subtalar joint spaces are preserved. Marginal joint spaces appear preserved including calcaneocuboid joint. Bone/Bone Marrow: There is mild edema within the posterior calcaneus with mild decreased T1 marrow signal and subtle erosive change of the posterior calcaneus (for example image 14). IMPRESSION: 1. Posterior calcaneal edema and shallow T1 marrow replacement suspicious for osteomyelitis of the posterior calcaneus. 2. Plantar fascial thickening and edema, plantar fasciitis. 3. Edema and atrophy of the plantar muscles may be seen with denervation myositis. 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 ESR 45, CRP 19 Previous cultures from October 27, 2021 ENTEROCOCCUS FAECALIS STAPHYLOCOCCUS EPIDERMIDIS CORYNEBACTERIUM STRIATUM GRP Peripheral vascular disease Diabetes mellitus Small right heel eschar Muscle atrophy Dementia Parkinson's disease Anemia senior living resident Plan: Plan of Care Cont ceftriaxone and empiric Flagyl,was on cefepime but dc due to confusion and zenaida Continue daptomycin may need renal dosing Agree with BKA has been recommended by vascular team due to his nonambulatory state. Per primary pt and family are refusing If not done, he remains at risk of sepsis, limb loss. Antibiotics alone will not be optimal Offload Optimize diabetes control Continue supportive care Continue aspiration precautions Patient is ready for discharge per primary team PICC line Prescription in chart CM to assist with dc abx F/U ID clinic on Dec 04 at 2;30pm Discussed with ASH ROSE MD Nov 13, 2021 08:53
[2021-11-13 09:00] LABS: CALCIUM 8.9 mg/dL (8.5-10.1); CREATININE 1.3 mg/dL (0.7-1.3); GFR 53.5; POTASSIUM 4.1 mmol/L (3.5-5.1)
[2021-11-13] MEDS: SENNOSIDES/DOCUSATE 8.6/50MG TABLET. PO SCH ×2 (09:00→21:00)
[2021-11-13] MEDS: INSULIN GLARGINE SYRINGE. SQ SCH (09:00)
[2021-11-13] MEDS: CYANOCOBALAMIN (VITAMIN B-12) 1,000 MCG TABLET. PO SCH (09:00)
[2021-11-13] MEDS: GABAPENTIN 100 MG CAPSULE. PO SCH ×3 (09:00→21:00)
[2021-11-13] MEDS: ASPIRIN ENTERIC COATED 81 MG TABLET.DR. PO SCH (09:00)
[2021-11-13] MEDS: BRIMONIDINE 0.2% OPHTH SOLUTION 5ML BOTTLE. OU SCH ×2 (09:00→21:07)
[2021-11-13] MEDS: LACTOBACILLUS RHAMNOSUS GG 1 CAPSULE. PO SCH ×2 (09:00→21:00)
[2021-11-13] MEDS: metroNIDAZOLE 500 MG TABLET PO SCH ×2 (09:00→21:00)
[2021-11-13] MEDS: TIMOLOL 0.5% OPHTH SOLUTION 5ML BOTTLE. OU SCH ×2 (09:00→21:07)
[2021-11-13] MEDS: ALPRAZolam 0.25 MG TABLET PO SCH ×3 (09:00→21:00)
[2021-11-13] MEDS: POLYVINYL ALCOHOL 1.4% OPHTH SOLUTION 15ML BOTTLE. OU SCH ×4 (09:00→21:08)
[2021-11-13] MEDS: CITALOPRAM 20 MG TABLET. PO SCH (09:00)
[2021-11-13] MEDS: MULTIVITAMIN with MINERAL TABLET. PO SCH (09:00)
[2021-11-13] MEDS: CARBIDOPA/LEVODOPA CR 25/100MG TABLET.SA. PO SCH ×3 (09:00→21:00)
[2021-11-13 09:10] LABS: BASO % 0 % (0-3); EOS # 0.6 x10^3/uL (0.0-0.7); EOS % 8 % (0-3); HEMATOCRIT 30.2 % (39.0-53.0); HEMOGLOBIN 9.5 g/dL (13.0-17.5); LYMPH # 1.6 x10^3/uL (1.0-4.8); LYMPH % 22 % (24-48); MEAN CORPUSCULAR HEMOGLOBIN 28 pg (25-35); MEAN CORPUSCULAR HGB CONC 31 g/dL (31-37); MEAN CORPUSCULAR VOLUME 88 fL (79-100); MONO # 0.6 x10^3/uL (0.0-1.1); MONO % 9 % (0-9); NEUT # 4.3 x10^3/uL (1.8-7.7); NEUT % 60 % (31-73); PLATELET COUNT 470 x10^3/uL (140-400); RED BLOOD COUNT 3.43 x10^6/uL (4.30-5.70); RED CELL DISTRIBUTION WIDTH 17.2 % (11.5-14.5); WHITE BLOOD COUNT 7.1 x10^3/uL (4.0-11.0)
[2021-11-13 09:26] LABS: CALCIUM 8.9 mg/dL (8.5-10.1); CREATININE 1.3 mg/dL (0.7-1.3); GFR 53.5; POTASSIUM 4.1 mmol/L (3.5-5.1)
[2021-11-13 09:32] LABS: ALBUMIN 2.4 g/dL (3.4-5.0); ALBUMIN/GLOBULIN RATIO 0.6 (1.0-1.7); TOTAL BILIRUBIN 0.2 mg/dL (0.2-1.0); TOTAL PROTEIN 6.5 g/dL (6.4-8.2)
[2021-11-13] MEDS: DAPTOmycin (GENERIC) IVPB 400 MG in IV NORMAL SALINE 50ML 50 ML IV SCH (09:39)
[2021-11-13 11:00] VITALS: BP 151/59
[2021-11-13] MEDS: cefTRIAXone IV Push 2 GM VIAL. IVP SCH (13:47)
[2021-11-13 15:15] VITALS: BP 127/58
--- NOTE | 2021-11-13 15:59 | SNU/HH DC ---
DISCHARGE ORDERS DISCHARGE INFORMATION: DISCHARGE DATE: Nov 14, 2021 FINAL DIAGNOSIS Problems Medical Problems: (1) Acute osteomyelitis of left calcaneus Status: Acute (2) Diabetic foot ulcer Status: Acute CONDITION ON DISCHARGE: Stable ASSISTED: SNF STAY <30 DAYS: Yes HOSPICE: HOSPICE: No HOSPICE EVAL & TREAT: No LTAC: ADMIT TO LTAC: No POST DISCHARGE ORDERS: ACTIVITY ORDERS: Resume previous activity WEIGHT BEARING STATUS: As tolerated, Non weight bearing DIET AFTER DISCHARGE: ADA WOUND/INCISION CARE: Change dressing CHECKS AFTER DISCHARGE: CHECKS AFTER DISCHARGE: Check blood press - daily TREATMENT/EQUIPMENT ORDERS: ADAPTIVE EQUIPMENT NEEDED: Wheelchair DISCHARGE MEDICATIONS: Home Meds Active Scripts Multivits,Ca,Minerals/Iron/Fa (THERA-M TABLET) 1 Each Tablet, 1 TAB PO DAILY for wounds for 90 Days, #90 TAB Prov:MODESTO WU MD 10/27/21 Amlodipine Besylate (AMLODIPINE BESYLATE) 5 Mg Tablet, 2.5 MG PO DAILY for hypertension for 90 Days, #45 TAB Prov:MODESTO WU MD 10/27/21 Atorvastatin Calcium (ATORVASTATIN CALCIUM) 20 Mg Tablet, 20 MG PO QHS for diabetes for 30 Days, #30 TAB Prov:MODESTO WU MD 07/29/21 Reported Medications Insulin Lispro (HUMALOG) 100 Unit/1 Ml Vial, 5 UNIT SQ TIDAC for diabetes, EACH 11/05/21 Colloidal Oatmeal (Eucerin Eczema Relief) 226 Gm Cream..g., 1 AYANA TP BID for dry skin for 30 Days, #226 GM 0 Refills 11/05/21 Insulin Aspart (NOVOLOG) 100 Unit/1 Ml Cartridge, 5 UNIT SQ TIDAC for DM, EACH 07/16/21 Mirtazapine (MIRTAZAPINE) 30 Mg Tablet, 1 TAB PO QHS for depression, #30 TAB 1 Refill 07/16/21 Insulin Glargine,Hum.rec.anlog (LANTUS SOLOSTAR) 100 Unit/1 Ml Insuln.pen, 14 UNIT SQ DAILYWBKFT for DM, #15 ML 3 Refills 07/16/21 Donepezil Hcl (DONEPEZIL HCL) 10 Mg Tablet, 10 MG PO HS for dementia, TAB 07/16/21 Brimonidine Tartrate/Timolol (COMBIGAN EYE DROPS) 5 Ml Drops, 1 DRP OU BID for glaucoma, DROP 07/16/21 Aspirin (LOW DOSE ASPIRIN EC) 81 Mg Tablet.dr, 1 TAB PO DAILY for heart health, #30 TAB 3 Refills 07/16/21 Carboxymethylcellulose Sodium (LUBRICANT EYE) 15 Ml Drops, 1 DRP OP QID for dry eyes, DROP 07/16/21 Alprazolam (ALPRAZOLAM) 0.25 Mg Tablet, 0.125 TAB PO TID for anxiety, #90 TAB 07/16/21 Timolol Maleate 0.5% (TIMOPTIC 0.5%) 10 Ml Drops, 1 DROP EACHEYE BID for glaucoma, #10 ML 3 Refills 05/06/19 Ondansetron Hcl (ZOFRAN) 4 Mg Tablet, 1 TAB PO Q8HRS PRN for NAUSEA/VOMITING, #20 TAB 11/20/18 Sennosides/Docusate Sodium (SENNA S TABLET) 1 Each Tablet, 1 EACH PO BID for constipation, TAB 11/20/18 Polyethylene Glycol 3350 (MIRALAX) 17 Gm Powd.pack, 1 PACKET PO DAILY PRN for CONSTIPATION, #30 PACKET 3 Refills 11/20/18 Lisinopril (LISINOPRIL) 10 Mg Tablet, 20 MG PO DAILY for htn, #30 TAB 5 Refills 11/20/18 Levothyroxine Sodium (LEVOTHYROXINE SODIUM) 75 Mcg Tablet, 1 TAB PO DAILY07 for hypothyroid, #30 TAB 5 Refills 11/20/18 Gabapentin (GABAPENTIN ) 100 Mg Capsule, 100 MG PO TID for NEUROGENIC PAIN, CAP 11/20/18 Ferrous Sulfate (FERROUS SULFATE) 325 Mg Tablet, 1 TAB PO BID for anemia, #60 TAB 3 Refills 11/20/18 Cyanocobalamin (Vitamin B-12) (VITAMIN B-12) 1,000 Mcg Tablet, 500 MCG PO DAILY for supplement, TAB 11/20/18 Petrolatum,White (AQUAPHOR) 99 Gm Oint...g., 99 GM TP BID for dry feet, MISC 11/20/18 Latanoprost (LATANOPROST) 2.5 Ml Drops, 1 DROP EACHEYE QHS for glaucoma, #7.5 ML 3 Refills 03/17/17 Carbidopa/Levodopa (SINEMET CR 25-100 TABLET) 1 Each Tablet.er, 1 TAB PO TID, TAB 03/18/16 Citalopram Hydrobromide (CITALOPRAM HBR) 20 Mg Tablet, 1 TAB PO DAILY, #30 TAB 5 Refills 03/18/16 Acetaminophen (TYLENOL) 325 Mg Tablet, 2 TAB PO PRN Q4HRS PRN for PAIN, #30 TAB 03/18/16 MODESTO WU MD Nov 13, 2021 15:59
--- NOTE | 2021-11-13 18:20 | DS ---
DATE OF DISCHARGE: 11/13/2021 PRIMARY DIAGNOSIS: Osteomyelitis of left heel. ADDITIONAL DIAGNOSES: Diabetes, Parkinson's disease, mild dementia, acute kidney injury, and peripheral arterial disease. CHIEF COMPLAINT AND HISTORY OF PRESENT ILLNESS: This 76-year-old male, jail resident, was admitted for osteomyelitis of the left heel after having been hospitalized a week or so earlier in the week and had an MRI as an inpatient, confirmed. He has been in home on IV antibiotics. Wound care was following. He had the MRI and was sent back for admission as wound care felt he needed IV antibiotics. SUMMARY OF STAY: The patient was admitted, appeared fairly ill throughout the stay despite pretty much stable vital signs. He had acute kidney injury, it did resolve during the stay with hydration. Sugars were somewhat high initially and came down a little bit by the time of discharge. Insulin doses were decreased accordingly. He had Unna boots on for protection of his legs with ongoing wound care and IV antibiotics. He was felt ready for discharge with IV antibiotics, did not receive at the jail on the day of admission, namely Rocephin, p.o. Flagyl, and daptomycin, which have been sent out by ID and will be taken care of. Case management is sending the orders. They were not able to be done on current computer system. We will follow him closely there. Vascular Surgery recommended a possible [id number] amputation and if he does deteriorate out there, it will be the next step. DISCHARGE INSTRUCTIONS/DISPOSITION: The patient is discharged to the jail on IV antibiotics as outlined above plus his regular meds. Again, we will follow him closely there. As expected, there is a good chance that this is not going to have a good ending. MAU HOLDEN: Santiago TID: [id number]
--- NOTE | 2021-11-13 18:45 | PN ---
DATE: 11/13/2021 DAILY PROGRESS NOTE LOCATION: He is in room 442. SUBJECTIVE: This 76-year-old male remains hospitalized with osteomyelitis of left heel, acute kidney injury. He was appearing to be somewhat acidotic with a CO2 level with the blood gases are normal. He awakens and indicate that he does not feel well, but is not as verbal as he normally is. OBJECTIVE: VITAL SIGNS: Stable. He is afebrile. Sugars are good. CHEST: Clear to auscultation. HEART: Regular rate and rhythm. ABDOMEN: Benign. Both legs remain in boots. IMPRESSION: 1. Osteomyelitis, left heel. 2. Insulin-dependent diabetes. 3. Acute kidney injury, improved. 4. Peripheral arterial disease. PLAN: Continue present antibiotics with transfer to assisted tomorrow with ID's approval of the same. LEIF HOLDEN: Santiago TID: [id number]
[2021-11-13 19:45] VITALS: BP 173/47
[2021-11-13] MEDS: MIRTAZAPINE 15 MG TABLET PO SCH (21:00)
[2021-11-13] MEDS: ATORVASTATIN CALCIUM 20 MG TABLET PO SCH (21:00)
[2021-11-13] MEDS: DONEPEZIL HCL 10 MG TABLET. PO SCH (21:00)
[2021-11-13] MEDS: LATANOPROST 0.005% OPHTH SOLUTION 2.5ML BOTTLE. OU SCH (21:07)
[2021-11-13 23:08] VITALS: BP 159/72
[2021-11-14 02:24] VITALS: BP 154/71
--- NOTE | 2021-11-14 05:55 | PDOC ---
Infectious Disease Note Subjective: Subjective Patient awake,Opens eyes, but does not answer any questions, Moans intermittently Discussed with nursing staff Vital Signs: Vital Signs Vital Signs Date Time Temp Pulse Resp B/P (MAP) Pulse Ox O2 Delivery O2 Flow Rate FiO2 11/14/21 02:24 99.0 89 22 154/71 (98) 100 Nasal Cannula 2.0 99.0 Physical Exam: PHYSICAL EXAM General patient awake opens eyes but does not answer any questions HEENT normocephalic atraumatic no conjunctival lesions Neck supple Lungs clear Heart S1-S2 no murmurs Abdomen soft nontender nondistended bowel sounds present briefs in place Extremities muscle atrophy chronic, multiple superficial abrasions present in bilateral legs. Left heel Rooke boots in place. Dressing intact. 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 Psych calm cooperative Derm warm dry no generalized rash except for above Medications: Inpatient Meds: Medications reviewed. Labs: Lab Laboratory Tests Test 11/13/21 08:20 11/13/21 12:10 11/13/21 17:34 11/13/21 19:35 White Blood Count 7.1 x10^3/uL (4.0-11.0) Red Blood Count 3.43 x10^6/uL (4.30-5.70) Hemoglobin 9.5 g/dL (13.0-17.5) Hematocrit 30.2 % (39.0-53.0) Mean Corpuscular Volume 88 fL (79-100) Mean Corpuscular Hemoglobin 28 pg (25-35) Mean Corpuscular Hemoglobin Concent 31 g/dL (31-37) Red Cell Distribution Width 17.2 % (11.5-14.5) Platelet Count 470 x10^3/uL (140-400) Neutrophils (%) (Auto) 60 % (31-73) Lymphocytes (%) (Auto) 22 % (24-48) Monocytes (%) (Auto) 9 % (0-9) Eosinophils (%) (Auto) 8 % (0-3) Basophils (%) (Auto) 0 % (0-3) Neutrophils # (Auto) 4.3 x10^3/uL (1.8-7.7) Lymphocytes # (Auto) 1.6 x10^3/uL (1.0-4.8) Monocytes # (Auto) 0.6 x10^3/uL (0.0-1.1) Eosinophils # (Auto) 0.6 x10^3/uL (0.0-0.7) Basophils # (Auto) 0.0 x10^3/uL (0.0-0.2) Sodium Level 145 mmol/L (136-145) Potassium Level 4.1 mmol/L (3.5-5.1) Chloride Level 112 mmol/L (98-107) Carbon Dioxide Level 17 mmol/L (21-32) Anion Gap 16 (6-14) Blood Urea Nitrogen 17 mg/dL (8-26) Creatinine 1.3 mg/dL (0.7-1.3) Estimated GFR (Cockcroft-Gault) 53.5 BUN/Creatinine Ratio 13 (6-20) Glucose Level 81 mg/dL (70-99) Calcium Level 8.9 mg/dL (8.5-10.1) Total Bilirubin 0.2 mg/dL (0.2-1.0) Aspartate Amino Transf (AST/SGOT) 33 U/L (15-37) Alanine Aminotransferase (ALT/SGPT) 24 U/L (16-63) Alkaline Phosphatase 143 U/L (46-116) Creatine Kinase 160 U/L (39-308) Total Protein 6.5 g/dL (6.4-8.2) Albumin 2.4 g/dL (3.4-5.0) Albumin/Globulin Ratio 0.6 (1.0-1.7) Glucose (Fingerstick) 69 mg/dL (70-99) 118 mg/dL (70-99) SARS-CoV-2 Antigen (Rapid) Negative (NEGATIVE) Test 11/13/21 21:00 Glucose (Fingerstick) 150 mg/dL (70-99) Micro PATIENT: BETH BOYD ACCOUNT: [id number] : 1945 LOCATION: MRI AGE: 76 SEX: M EXAM STATUS: PRE CLI ORD. PHYSICIAN: OTONIEL AGARWAL APRN REASON: DFU left heel with suspected oesteomyelitis 15mL CLARISCAN PROCEDURE: LOWER EXT NON JOINT WO/W LT EXAM: MRI LEFT ANKLE/HINDFOOT WITH AND WITHOUT IV CONTRAST DATE: 11/03/2021 10:45 AM CLINICAL INDICATION: Reason: DFU left heel with suspected oesteomyelitis COMPARISON: None. TECHNIQUE: Multiplanar, multisequence MR imaging of the left ankle was performed before and after the administration of IV contrast. FINDINGS: No ankle joint effusion. T1 marrow signal is preserved. No fracture or osteonecrosis. There is mild thickening of the Achilles tendon measuring 8 mm in AP dimension. No abnormal signal within the Achilles tendon. Tendons: Posterior tibialis, flexor digitorum longus and flexor hallucis longus tendons are intact. Peroneus longus and peroneus brevis tendons are intact. The peroneal tendons are anatomically positioned behind the lateral malleolus. Anterior tibialis, extensor digitorum longus and extensor hallucis longus tend ons are intact. Achilles tendon intact with normal signal and morphology. Plantar fascia intact without marginal osteitis or soft tissue swelling. Physiologic fluid at the retrocalcaneal bursa. There is mild thickening and edema within the plantar fascia. Moderate edema and fatty atrophy within the associated muscle bellies. Ligaments: Medial deltoid stabilizers are intact. Lateral collateral stabilizing ligaments including the anterior talofibular ligament are intact. Anterior and posterior tibiofibular ligaments are intact. Spring ligament intact. Ligaments of the Sinus Tarsi are intact. Spaces/Places: Sinus Tarsi within normal limits, without mass lesion or edema pattern. Tarsal tunnel within normal limits, without mass lesion. Articular Cartilage/joint line: Articular cartilage at the tibiotalar joint preserved. Negative osteochondral lesion of the talar dome. Posterior and middle subtalar joint spaces are preserved. Marginal joint spaces appear preserved including calcaneocuboid joint. Bone/Bone Marrow: There is mild edema within the posterior calcaneus with mild decreased T1 marrow signal and subtle erosive change of the posterior calcaneus (for example image 14). IMPRESSION: 1. Posterior calcaneal edema and shallow T1 marrow replacement suspicious for osteomyelitis of the posterior calcaneus. 2. Plantar fascial thickening and edema, plantar fasciitis. 3. Edema and atrophy of the plantar muscles may be seen with denervation myositis. 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 Per primary pt and family are refusing If not done, he remains at risk of sepsis, limb loss. Antibiotics alone will not be optimal Offload Optimize diabetes control Continue supportive care Continue aspiration precautions Patient is ready for discharge per primary team PICC line Prescription in chart CM to assist with dc abx F/U ID clinic on Dec 04 at 2;30pm Discussed with ASH ROSE MD Nov 14, 2021 05:55
[2021-11-14 07:00] VITALS: BP 145/75
--- NOTE | 2021-11-14 09:00 | NUR ---
Patient's morning medications held, patient unable to follow commands and drink or eat.
--- NOTE | 2021-11-14 12:09 | NUR ---
Discharge Note: BETH BOYD 4 OSCEOLA Discharge instructions and discharge home medications reviewed with ferry terminal supervisor care facility and a copy given. All questions have been answered and understanding verbalized. The following instructions and handouts were given: diet, activity, medication list and follow up instructions. Discontinued lines and drains: PICC Line DL intact. Patient discharged to [facility] with Self via Stretcher
--- NOTE | 2021-11-14 12:59 | RAD ---
Date: 11/14/2021 Exam: Fluoroscopic and ultrasound guided peripheral central venous catheter placement. Indication: Consent: The procedure was explained in its entirety to the patient or the patients designated repres entative by a member of the treatment team, including a discussion of the risks, benefits and commonl y accepted alternatives to the procedure, as well as the expected consequences of no therapy whatsoev er. Discussion of the risks included, but was not limited to, those that are most frequent and thos e that are rare but possibly severe or life-threatening, as well as the possibility of unforeseen com plications. Discussion: A timeout procedure was performed. The patient was prepped and draped using maximum sterile techniq ue, including the use of: Current guideline approved cutaneous antisepsis, a large sterile sheet to e stablish a sterile field. Additionally the substation operator helper generation wore a hat, mask, sterile gloves, a sterile gown during the procedure as well as practiced acceptable hand hygiene prior to placing the line. 1% lidoc elo was administered for local anesthesia. Ultrasound evaluation demonstrates a patent right basilic vein. Reference images were saved in the edical record. The selected vein was accessed using micropuncture technique. A guidewire was advanced centrally. The PICC line was cut to length, and advanced through a peel-away sheath such that it's tip resides at the cavoatrial junction. The peel-away sheath a sheath was removed. The catheter was s ecured in place. The catheter was found to flush and aspirate normally.. Sterile dressings were appli ed. No immediate complications were identified. Fluoroscopy time: 0.2 minutes Dose area product: 2 Gycm2 Impression: Successful placement of a right upper extremity PICC line Electronically signed by: Pasquale Chamberlain MD (11/14/2021 12:56 PM) [id number]
== END 2021-11-14 11:10 | DRG 637 ==
LOC: ER 19:56 → ED HOLD 20:27 → 4 NORTH 23:07
PROVIDERS: ADMIT Family Medicine; ATTEND Family Medicine
PROC: 02HV33Z Insertion of Infusion Device into Superior Vena Cava, Percutaneous Approach (ICD-10-PCS; principal; 2021-11-14)
PROC: B5181ZA Fluoroscopy of Superior Vena Cava using Low Osmolar Contrast, Guidance (ICD-10-PCS; 2021-11-14)
PROC: B548ZZA Ultrasonography of Superior Vena Cava, Guidance (ICD-10-PCS; 2021-11-14)
DX: E10.69 Type 1 diabetes mellitus with other specified complication (principal); E43 Unspecified severe protein-calorie malnutrition; M86.172 Other acute osteomyelitis, left ankle and foot; I13.0 Hypertensive heart and chronic kidney disease with heart failure and stage 1 through stage 4 chronic kidney disease, or unspecified chronic kidney disease; L97.419 Non-pressure chronic ulcer of right heel and midfoot with unspecified severity; L97.429 Non-pressure chronic ulcer of left heel and midfoot with unspecified severity; M86.60 Other chronic osteomyelitis, unspecified site; N17.9 Acute kidney failure, unspecified; D64.9 Anemia, unspecified; E03.9 Hypothyroidism, unspecified; E10.22 Type 1 diabetes mellitus with diabetic chronic kidney disease; E10.51 Type 1 diabetes mellitus with diabetic peripheral angiopathy without gangrene; E10.621 Type 1 diabetes mellitus with foot ulcer; E10.65 Type 1 diabetes mellitus with hyperglycemia; E78.5 Hyperlipidemia, unspecified; E87.5 Hyperkalemia; F02.80 Dementia in other diseases classified elsewhere, unspecified severity, without behavioral disturbance, psychotic disturbance, mood disturbance, and anxiety; G20 Parkinson's disease; I50.9 Heart failure, unspecified; L89.90 Pressure ulcer of unspecified site, unspecified stage; L97.509 Non-pressure chronic ulcer of other part of unspecified foot with unspecified severity; M72.2 Plantar fascial fibromatosis; N18.9 Chronic kidney disease, unspecified; Z79.4 Long term (current) use of insulin; E21.3 Hyperparathyroidism, unspecified; F32.A Depression, unspecified; F41.9 Anxiety disorder, unspecified; K21.9 Gastro-esophageal reflux disease without esophagitis; M19.90 Unspecified osteoarthritis, unspecified site; Z20.822 Contact with and (suspected) exposure to COVID-19
CPT/HCPCS: 36415; 36573; 36600; 80048; 80053; 80202; 81001; 82550; 82805; 82962; 83605; 85025; 85651; 86140; 87040; 87426; 96365; 96366; 96368; C1751; C1892; J0692; J0696; J0878; J1335; J1815; J3370; J7030; J7050; U0003; U0005; 99285-25; G0378

== ENCOUNTER 2021-11-25 08:25 | Inpatient (IN) | payer MEDICARE, OTHER ==
[~2021-11-25] VITALS: Ht 167.6 cm; Wt 70.8 kg
[2021-11-25 06:55] VITALS: BP 139/51
[~2021-11-25 08:25] MED LIST changes: +COLL226C TP; +INSU100V6 SQ
[2021-11-25 09:27] LABS: BASO % 0 % (0-3); EOS # 0.2 x10^3/uL (0.0-0.7); EOS % 3 % (0-3); HEMATOCRIT 29.5 % (39.0-53.0); HEMOGLOBIN 9.4 g/dL (13.0-17.5); LYMPH # 0.4 x10^3/uL (1.0-4.8); LYMPH % 5 % (24-48); MEAN CORPUSCULAR HEMOGLOBIN 28 pg (25-35); MEAN CORPUSCULAR HGB CONC 32 g/dL (31-37); MEAN CORPUSCULAR VOLUME 87 fL (79-100); MONO # 0.1 x10^3/uL (0.0-1.1); MONO % 2 % (0-9); NEUT % 89 % (31-73); PLATELET COUNT 356 x10^3/uL (140-400); RED BLOOD COUNT 3.39 x10^6/uL (4.30-5.70); RED CELL DISTRIBUTION WIDTH 17.8 % (11.5-14.5); WHITE BLOOD COUNT 6.7 x10^3/uL (4.0-11.0)
--- NOTE | 2021-11-25 09:31 | RAD ---
XR CHEST 1V INDICATION: SOA COMPARISON STUDY: 11/13/2021. FINDINGS: Life Support Devices: Right PICC with tip overlying the superior cavoatrial junction. Lungs: Normal lung volume. No focal airspace disease. Normal pulmonary vasculature. Pleura: No pleural effusion or pneumothorax. Heart and Mediastinum: Stable cardiomediastinal silhouette and great vessels. IMPRESSION: No acute cardiopulmonary process. Electronically signed by: Omega Montalvo MD (11/25/2021 9:29 AM) [id number]
[2021-11-25 09:39] LABS: CALCIUM 8.5 mg/dL (8.5-10.1); CREATININE 1.2 mg/dL (0.7-1.3); GFR 58.7
--- NOTE | 2021-11-25 09:40 | PHYS DOC ---
Past Medical History Past Medical History: Anemia, Anxiety, CHF, Depression, Diabetes-Type I, Diabetes-Type II, GERD, Hypertension, Hypotension, UTI, Other Additional Past Medical Histor: HYPERPARATHYROIDISM, ALZ Past Surgical History: No Surgical History Additional Past Surgical Histo: unknown Smoking Status: Unknown if ever smoked Alcohol Use: None Drug Use: None General Adult EDM: Chief Complaint: NAUSEA/VOMITING/confusion HPI: HPI: Patient is a 76 year old male who was brought here by EMS from jail due to confusion., Nausea, general weakness. Patient is being treated with IV antibiotic due to infection of his left foot wound, osteomyelitis. Patient has history of Parkinson disease, had history of stroke in the past, he is bedbound. Patient is very poor historian. [facility] reported that patient was tested positive for COVID-19 recently has been having trouble breathing. Review of Systems: Review of Systems: Constitutional: Denies fever or chills. [] Eyes: Denies change in visual acuity. [] HENT: Denies nasal congestion or sore throat. [] Respiratory: Positive for cough or shortness of breath. [] Cardiovascular: Denies chest pain or edema. [] GI: Denies abdominal pain, vomiting, bloody stools or diarrhea. Positive for nausea : Denies dysuria. [] Musculoskeletal: Denies back pain or joint pain. Positive for general weakness Integument: Denies rash. [] Neurologic: Denies headache, focal weakness or sensory changes. [] Endocrine: Denies polyuria or polydipsia. [] Lymphatic: Denies swollen glands. [] Psychiatric: Denies depression or anxiety. [] Heart Score: C/O Chest Pain: N/A Risk Factors: Risk Factors: DM, Current or recent (<one month) smoker, HTN, HLP, family history of CAD, obesity. Risk Scores: Score 0 - 3: 2.5% MACE over next 6 weeks - Discharge Home Score 4 - 6: 20.3% MACE over next 6 weeks - Admit for Clinical Observation Score 7 - 10: 72.7% MACE over next 6 weeks - Early Invasive Strategies Current Medications: Current Medications Medications (Trade) Dose Ordered Sig/Bryson Start Time Stop Time Status Last Admin Dose Admin Sodium Chloride 1,000 ml @ 1,000 mls/hr 1X ONCE 11/25/21 09:45 11/25/21 10:44 Allergies: Allergies: Allergies Coded Allergies Type Severity Reaction Last Updated Verified Penicillins Allergy Severe 09/17/21 Yes levofloxacin Allergy Intermediate 01/23/16 Yes Physical Exam: PE: Constitutional: Well developed, well nourished, no acute distress HENT: Normocephalic, atraumatic, bilateral external ears normal, oropharynx moist, no oral exudates, nose normal. [] Eyes: PERRLA, EOMI, conjunctiva normal, no discharge. [] Neck: Normal range of motion, no tenderness, supple, no stridor. [] Cardiovascular: Tachycardia heart rate regular rhythm, no murmur [] Lungs & Thorax: Bilateral breath sounds with rales at lung bases to auscultation [] Abdomen: Bowel sounds normal, soft, no tenderness, no masses, no pulsatile masses. [] Skin: Warm, dry, decubitus ulcer on coccyx area, wound on left foot with yellow discharge Back: No tenderness, no CVA tenderness. [] Extremities: Wound on left foot with yellow discharge, right-sided contracture Neurologic: Patient is awake alert, disoriented to place and person. Psychologic: Affect normal, judgement normal, mood normal. [] Current Patient Data: Labs: Laboratory Tests Test 11/25/21 09:00 11/25/21 09:31 11/25/21 12:05 11/25/21 12:58 White Blood Count 6.7 x10^3/uL Red Blood Count 3.39 x10^6/uL Hemoglobin 9.4 g/dL Hematocrit 29.5 % Mean Corpuscular Volume 87 fL Mean Corpuscular Hemoglobin 28 pg Mean Corpuscular Hemoglobin Concent 32 g/dL Red Cell Distribution Width 17.8 % Platelet Count 356 x10^3/uL Neutrophils (%) (Auto) 89 % Lymphocytes (%) (Auto) 5 % Monocytes (%) (Auto) 2 % Eosinophils (%) (Auto) 3 % Basophils (%) (Auto) 0 % Neutrophils # (Auto) 6.0 x10^3/uL Lymphocytes # (Auto) 0.4 x10^3/uL Monocytes # (Auto) 0.1 x10^3/uL Eosinophils # (Auto) 0.2 x10^3/uL Basophils # (Auto) 0.0 x10^3/uL Sodium Level 138 mmol/L Potassium Level 4.0 mmol/L Chloride Level 98 mmol/L Carbon Dioxide Level 21 mmol/L Anion Gap 19 Blood Urea Nitrogen 12 mg/dL Creatinine 1.2 mg/dL Estimated GFR (Cockcroft-Gault) 58.7 BUN/Creatinine Ratio 10 Glucose Level 387 mg/dL Lactic Acid Level 5.4 mmol/L 1.1 mmol/L Calcium Level 8.5 mg/dL Magnesium Level 1.5 mg/dL Total Bilirubin 0.3 mg/dL Aspartate Amino Transf (AST/SGOT) 27 U/L Alanine Aminotransferase (ALT/SGPT) 14 U/L Alkaline Phosphatase 153 U/L Troponin I High Sensitivity 17 ng/L [id number]-Kyp-L-Type Natriuretic Peptide 879 pg/mL Total Protein 7.0 g/dL Albumin 2.5 g/dL Albumin/Globulin Ratio 0.6 O2 Saturation 98 % Arterial Blood pH 7.55 Arterial Blood pH (Temp corrected) 7.51 Arterial Blood pCO2 at Patient Temp 24 mmHg Arterial Blood pCO2 (Temp correct) 27 mmHg Arterial Blood pO2 at Patient Temp 101 mmHg Arterial Blood pO2 (Temp corrected) 118 mmHg Arterial Blood HCO3 21 mmol/L Arterial Blood Base Excess -1 mmol/L FiO2 3l n.c. Influenza Type A Antigen Negative Influenza Type B Antigen Negative SARS-CoV-2 Antigen (Rapid) Negative Current Medications Medications (Trade) Dose Ordered Sig/Bryson Route PRN Reason Start Time Stop Time Status Last Admin Dose Admin Sodium Chloride 1,000 ml @ 1,000 mls/hr 1X ONCE IV 11/25/21 09:45 11/25/21 10:44 DC 11/25/21 09:00 Magnesium Sulfate 50 ml @ 25 mls/hr 1X ONCE IV 11/25/21 10:00 11/25/21 11:59 DC 11/25/21 10:30 Ibuprofen (Motrin) 800 mg 1X ONCE PO 11/25/21 10:15 11/25/21 10:16 DC 11/25/21 10:29 Acetaminophen (Tylenol) 1,000 mg 1X ONCE PO 11/25/21 10:15 11/25/21 10:16 DC 11/25/21 10:29 Vancomycin HCl 1.5 gm/Sodium Chloride 500 ml @ 250 mls/hr 1X ONCE IV 11/25/21 10:30 11/25/21 12:29 DC 11/25/21 11:03 Vital Signs: Vital Signs Date Time Temp Pulse Resp B/P (MAP) Pulse Ox O2 Delivery O2 Flow Rate FiO2 11/25/21 08:33 103.1 110 22 84/60 (68) 97 Nasal Cannula 3.0 103.1 EKG: EKG: EKG was done at 921, heart rate 95 bpm, sinus rhythm, no ST segment elevation. Radiology/Procedures: Radiology/Procedures: [][facility] [address] [place] [address] IMAGING REPORT Signed PATIENT: BETH BOYD ACCOUNT: [id number] : 1945 LOCATION: ER AGE: 76 SEX: M EXAM STATUS: PRE ER ORD. PHYSICIAN: NARCISA GOMES DO REASON: SOA PROCEDURE: CHEST AP ONLY XR CHEST 1V INDICATION: SOA COMPARISON STUDY: 11/13/2021. FINDINGS: Life Support Devices: Right PICC with tip overlying the superior cavoatrial junction. Lungs: Normal lung volume. No focal airspace disease. Normal pulmonary vasculature. Pleura: No pleural effusion or pneumothorax. Heart and Mediastinum: Stable cardiomediastinal silhouette and great vessels. IMPRESSION: No acute cardiopulmonary process. Electronically signed by: Modesto Montalvo MD (11/25/2021 9:29 AM) [id number] DICTATED and SIGNED BY: MODESTO MONTALVO MD DATE: 11/25/21 [id number] Course & Med Decision Making: Course & Med Decision Making Pertinent Labs and Imaging studies reviewed. (See chart for details) Patient is a 76-year-old male who was brought here by EMS from jail due to generalized weakness, shortness of air, been infected with COVID-19. Patient being treated for osteomyelitis of his left foot with IV antibiotic. Patient was found to be in severe sepsis. Patient will be admitted to hospital for further evaluation and treatment, discussed with referring physician Dr. Parker who agreed to admit patient Dragon Disclaimer: Dragkathy Disclaimer: This electronic medical record was generated, in whole or in part, using a voice recognition dictation system. Departure Departure Impression: Primary Impression: Severe sepsis Additional Impressions: COVID-19 virus infection Open wound of lower extremity Disposition: ADMITTED INPATIENT Admitting Physician: Modesto Parker Condition: IMPROVED Referrals: MODESTO PARKER MD (PCP) NARCISA GOMES DO Nov 25, 2021 09:40
[2021-11-25 09:45] LABS: ALBUMIN 2.5 g/dL (3.4-5.0); ALBUMIN/GLOBULIN RATIO 0.6 (1.0-1.7); MAGNESIUM 1.5 mg/dL (1.8-2.4); TOTAL BILIRUBIN 0.3 mg/dL (0.2-1.0)
[2021-11-25] MEDS ORDERED: IV NORMAL SALINE 1000ML BAG 1,000 ML IV ONE (09:45)
[2021-11-25] MEDS ORDERED: MAGNESIUM SULFATE 2GM 50 ML IV ONE (10:00)
[2021-11-25 10:03] LABS: BASE EXCESS ABG -1 mmol/L (-3-3); CORRECTED PCO2 ABG 27 mmHg; CORRECTED PH ABG 7.51; CORRECTED PO2 ABG 118 mmHg; HCO3 ABG 21 mmol/L (21-28); PCO2 ABG 24 mmHg (35-46); PO2 ABG 101 mmHg (65-108); SAT O2 ABG 98 % (92-99)
[2021-11-25 10:13] LABS: FIO2 ABG 3L N.C.
[2021-11-25] MEDS ORDERED: IBUPROFEN 400 MG TABLET. PO ONE (10:15)
[2021-11-25] MEDS ORDERED: ACETAMINOPHEN 500 MG TABLET PO ONE (10:15)
[2021-11-25] MEDS ORDERED: VANCOMYCIN 1.5 GM in IV NORMAL SALINE 500ML BAG 500 ML IV ONE (10:30)
[2021-11-25] MEDS ORDERED: ONDANSETRON PF 4 MG/2 ML VIAL. IVP PRN (12:00)
[2021-11-25] MEDS: IV NORMAL SALINE 1000ML BAG 1,000 ML IV SCH ×2 (12:00→19:47)
[2021-11-25 12:49] LABS: INFLUENZA A PATIENT NEGATIVE (NEGATIVE); INFLUENZA B PATIENT NEGATIVE (NEGATIVE)
[2021-11-25] MEDS ORDERED: IV DEXTROSE 5% 250 ML BAG. IV PRN (20:45)
[2021-11-25] MEDS: INSULIN LISPRO 300 UNITS/3 ML VIAL. SQ SCH (21:00)
[2021-11-25] MEDS ORDERED: INSULIN LISPRO 300 UNITS/3 ML VIAL. SQ ONE (21:30)
[2021-11-25 22:23] LABS: BILIRUBIN,URINE NEGATIVE (NEG); CLARITY,URINE TURBID; COLOR,URINE YELLOW; NITRITE,URINE NEGATIVE (NEG); PH,URINE 5.5 (<5.0-8.0); PROTEIN,URINE NEGATIVE (NEG-TRACE); UROBILINOGEN,URINE 0.2 mg/dL (0.2 mg/dL)
[2021-11-25 22:32] LABS: BACTERIA,URINE FEW /HPF (0-FEW); WBC,URINE TNTC /HPF (0-4); YEAST,URINE PRESENT /HPF
[2021-11-25 23:00] VITALS: BP 114/64
[2021-11-25] MEDS ORDERED: AMLO2.5T5 PO (23:47)
[2021-11-26] VITALS (8 sets, daily range): BP systolic 77–117; BP diastolic 42–54
[2021-11-26] MEDS ORDERED: HYPR15DR5 OU (00:03)
[2021-11-26] MEDS ORDERED: BISA10SU55 RC (00:13)
[2021-11-26] MEDS ORDERED: ATOR20TA58 PO (00:13)
[2021-11-26] MEDS ORDERED: NA P133E2 RC (00:13)
[2021-11-26] MEDS ORDERED: BISACODYL 10 MG SUPP.RECT. RC PRN (00:30)
[2021-11-26] MEDS ORDERED: SODIUM PHOSPHATES 19/7GM 133 ML ENEMA. RC PRN (00:30)
[2021-11-26] MEDS ORDERED: POLY2500 PO (00:30)
[2021-11-26] MEDS ORDERED: LISI20TA18 PO (00:30)
[2021-11-26] MEDS ORDERED: MAGN400O7 PO (00:30)
[2021-11-26] MEDS ORDERED: POLYETHYLENE GLYCOL 3350 17 GM PACKET. PO PRN (01:00)
[2021-11-26] MEDS ORDERED: ONDANSETRON ODT 4 MG TAB.RAPDIS. PO PRN (01:15)
[2021-11-26] MEDS ORDERED: MINERAL OIL/PETROLATUM TOPICAL CREAM 113GM JAR. TP PRN (01:15)
[2021-11-26] MEDS ORDERED: POLYVINYL ALCOHOL 1.4% OPHTH SOLUTION 15ML BOTTLE. OU PRN (01:15)
[2021-11-26] MEDS: IV NORMAL SALINE 1000ML BAG 1,000 ML IV SCH (04:40)
[2021-11-26] MEDS: ACETAMINOPHEN 325 MG TABLET. PO PRN (04:45)
[2021-11-26] MEDS: LEVOTHYROXINE 75 MCG TABLET PO SCH (06:45)
--- NOTE | 2021-11-26 07:19 | EKG ---
[facility] [address] [place] [address] Test Date: 2021-11-25 Test Time: 09:31:58 Pat Name: BETH BOYD Department: Room: 562 1 Gender: M Airworthiness Inspector: : 1945 Requested By: NARCISA GOMES Order Number: [id number] Reading MD: Graeme Sutherland MD Measurements Intervals Hammond Rate: 95 P: 46 NM: 142 QRS: 54 QRSD: 90 T: 30 QT: 408 QTc: 516 Interpretive Statements SINUS RHYTHM Electronically Signed On 12-02-2021 8:24:04 GATE ATTENDANT by Graeme Sutherland MD
[2021-11-26 07:56] LABS: BASO % 0 % (0-3); EOS % 0 % (0-3); HEMATOCRIT 25.7 % (39.0-53.0); HEMOGLOBIN 8.1 g/dL (13.0-17.5); LYMPH # 0.7 x10^3/uL (1.0-4.8); LYMPH % 4 % (24-48); MEAN CORPUSCULAR HEMOGLOBIN 28 pg (25-35); MEAN CORPUSCULAR HGB CONC 32 g/dL (31-37); MEAN CORPUSCULAR VOLUME 88 fL (79-100); MONO # 1.2 x10^3/uL (0.0-1.1); MONO % 6 % (0-9); NEUT # 16.8 x10^3/uL (1.8-7.7); NEUT % 90 % (31-73); PLATELET COUNT 289 x10^3/uL (140-400); RED BLOOD COUNT 2.92 x10^6/uL (4.30-5.70); RED CELL DISTRIBUTION WIDTH 17.5 % (11.5-14.5); WHITE BLOOD COUNT 18.7 x10^3/uL (4.0-11.0)
[2021-11-26 08:28] LABS: CALCIUM 7.5 mg/dL (8.5-10.1); CREATININE 1.2 mg/dL (0.7-1.3); GFR 58.7
[2021-11-26] MEDS ORDERED: MAGNESIUM HYDROXIDE 2,400 MG/30 ML ORAL.SUSP. PO PRN (09:00)
[2021-11-26] MEDS ORDERED: COLLOIDAL OATMEAL TP SCH (09:00)
[2021-11-26] MEDS: BRIMONIDINE 0.2% OPHTH SOLUTION 5ML BOTTLE. OU SCH ×2 (09:26→20:57)
[2021-11-26] MEDS: TIMOLOL 0.5% OPHTH SOLUTION 5ML BOTTLE. OU SCH ×2 (09:27→20:57)
[2021-11-26] MEDS: ALPRAZolam 0.25 MG TABLET PO SCH ×3 (09:27→20:56)
[2021-11-26] MEDS: GABAPENTIN 100 MG CAPSULE. PO SCH ×3 (09:28→20:56)
[2021-11-26] MEDS: ASPIRIN ENTERIC COATED 81 MG TABLET.DR. PO SCH (09:28)
[2021-11-26] MEDS: CARBIDOPA/LEVODOPA CR 25/100MG TABLET.SA. PO SCH ×3 (09:28→20:56)
[2021-11-26] MEDS: LISINOPRIL 20 MG TABLET PO SCH (09:28)
[2021-11-26] MEDS: SENNOSIDES/DOCUSATE 8.6/50MG TABLET. PO SCH ×2 (09:28→20:57)
[2021-11-26] MEDS: CITALOPRAM 20 MG TABLET. PO SCH (09:29)
[2021-11-26] MEDS: FERROUS SULFATE 325 MG TABLET. PO SCH ×2 (09:29→17:18)
[2021-11-26] MEDS: CYANOCOBALAMIN (VITAMIN B-12) 1,000 MCG TABLET. PO SCH (09:30)
[2021-11-26] MEDS: INSULIN GLARGINE SYRINGE. SQ SCH (09:30)
[2021-11-26] MEDS: INSULIN LISPRO 300 UNITS/3 ML VIAL. SQ SCH ×7 (09:31→20:55)
[2021-11-26] MEDS: MULTIVITAMIN with MINERAL TABLET. PO SCH (09:32)
[2021-11-26 10:31] LABS: % BANDS 4 % (0-9); % LYMPHS 5 % (24-48); % MONOS 2 % (0-10); % SEGS 89 % (35-66)
[2021-11-26 10:32] LABS: PLT ESTIMATE ADEQUATE (ADEQUATE)
--- NOTE | 2021-11-26 11:40 | CONS ---
DATE OF CONSULTATION: 11/26/2021 REFERRING PHYSICIAN: Omega Parker MD REASON FOR CONSULTATION: Antibiotic management. HISTORY OF PRESENT ILLNESS: A 76-year-old male recently discharged from [facility], on IV ceftriaxone, Flagyl and daptomycin, was brought from jail by EMS due to confusion on 11/25/2021. The patient is a very poor historian.The patient also had nausea, generalized weakness. He was found to have a leukocytosis, lactic acidosis, UTI. Blood cultures on admission are positive for gram-negative bacteremia. The patient has received a dose of vancomycin. ID consultation has been requested for antibiotic management. senior living reported that patient was tested positive for COVID-19 recently and was having trouble breathing per discussion with RN.. He is currently on 2 liters O2 by nasal cannula. Rapid COVID is negative here. COVID PCR is pending at this time.Currently patient answers a few questions,awake,alert. PAST MEDICAL HISTORY: Anxiety, anemia, CHF, depression, diabetes, GERD, hypertension, hypotension, UTI, hyperparathyroidism, Alzheimer's, jail resident, generalized debility, Parkinson's disease, muscle atrophy, peripheral vascular disease, anemia, dementia, history of possible left calcaneal osteomyelitis for chronic nonhealing left heel wound. REVIEW OF SYSTEMS: Limited as the patient remains confused, but is able to answer simple questions in yes and no. FAMILY HISTORY: As per HPI. SOCIAL HISTORY: Unknown if ever smoke. No alcohol. No drug use. senior living resident. ALLERGIES: PENICILLIN, SEVERE. The patient has tolerated ceftriaxone, cefepime well, levofloxacin, intermediate. CURRENT MEDICATIONS: Vancomycin dose time once. Other medications reviewed in medication list. The patient was on daptomycin, ceftriaxone and Flagyl prior to admission at the nursing facility from recent discharge. PHYSICAL EXAMINATION: VITAL SIGNS: Temperature 98.3, pulse 83, respiratory rate 20, blood pressure 117/45, oxygen saturation 99% on 3 liters O2 by nasal cannula. T-max was 103. GENERAL: The patient is alert, awake, answers a few questions but slow in answering them appears comfortable on 2 liters O2 by nasal cannula. HEENT: Normocephalic and atraumatic. No conjunctival lesions. NECK: Supple. LUNGS: Decreased breath sounds at bases. No accessory muscle use. No wheezing. HEART: S1, S2. No murmurs. ABDOMEN: Soft, nontender, nondistended. Bowel sounds present. GENITOURINARY: Lechuga in place. EXTREMITIES: Muscle atrophy, chronic. Multiple superficial abrasions present in bilateral legs. Rooke boots present. Bilateral lower ext wounds dressed,dry not taken down CENTRAL NERVOUS SYSTEM: Alert, awake, answers a few questions, very slow in answering questions. Has tremors more in upper extreimities. Memory is very poor. PSYCHIATRIC: cooperative, somewhat anxious DERMATOLOGIC: Warm and dry. No generalized rash except for above. Right upper extremity PICC line clean. LABORATORY DATA: WBC 18.7, hemoglobin 8.1, hematocrit 25.7, platelets 289. Sodium 138, potassium 4.0, chloride 100, bicarbonate 16, BUN 14, creatinine 1.2, glucose of 409. Lactate was 5.4, repeat is 1.1. UA shows pyuria, leukocyte esterase positive, moderate blood. Micro: Blood culture 11/25/2021, gram-negative stephanie. ID and MARYBEL pending at this time. IMAGING: Chest x-ray, no acute cardiopulmonary process. IMPRESSION: 1. Fever from sepsis and gram-negative bacteremia. 2. Gram-negative bacteremia. 3. Leukocytosis and lactic acidosis. 4. Urinary tract infection. 5. 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 6. Diabetes mellitus. 7. Nausea, vomiting, confusion.Improving 8. COVID-19 positive at the outside facility. Rapid COVID negative here. COVID PCR pending at this time. 9. Depression, Alzheimer's, Parkinson's. 10. Congestive heart failure. 11. Anxiety. 12 Anemia. 13. Generalized debility. 14. Muscle atrophy. 15 Small right heel ulcer. 16. Peripheral vascular disease. 17 senior living resident. RECOMMENDATIONS: 1. Will start daptomycin and meropenem. 2. Follow up gram-negative stephanie in blood cultures and f/u UC. 3. Vascular had recommended BKA last admission due to his nonambulatory status, but family had refused for the same. 4. Off load, 5. Continue supportive care. 6. Maintain aspiration precaution. Discussed with nursing staff. Thank you for allowing me to participate in this patient's care. If you have any questions, do not hesitate to contact me. JESSIE DR: Viola TID: [id number] MTDD
[2021-11-26] MEDS ORDERED: INSULIN LISPRO 300 UNITS/3 ML VIAL. SQ SCH (11:45)
[2021-11-26] MEDS: MEROPENEM 500 MG in IV NORMAL SALINE 50ML 50 ML IV SCH ×2 (11:48→17:18)
[2021-11-26] MEDS: DAPTOmycin (GENERIC) IVPB 430 MG in IV NORMAL SALINE 50ML 50 ML IV SCH (13:27)
--- NOTE | 2021-11-26 13:27 | HP ---
DATE OF SERVICE: 11/26/2021 ADMIT DATE: 11/25/2021 ADMISSION HISTORY AND PHYSICAL CHIEF COMPLAINT AND HISTORY OF PRESENT ILLNESS: This 76-year-old [facility] resident, brought to the hospital with nausea, general weakness and increased confusion. He has ongoing IV antibiotics due to the left heel osteomyelitis. The patient was initially hypotensive, required fluid resuscitation, consistent with sepsis. Initial white count, however, was normal. PAST MEDICAL HISTORY: Remarkable for the left heel osteomyelitis, peripheral arterial disease, anemia, anxiety, congestive heart failure, depression, type 1 diabetes, GERD, urinary tract infections, mild dementia. MEDICATIONS: Brought with the patient, listed on the computer have been addressed. ALLERGIES: listed on the computer and have been addressed. SOCIAL HISTORY: He is a lifetime nonsmoker, nondrinker, does not use drugs, never . FAMILY HISTORY: Positive for longevity. REVIEW OF SYSTEMS: Remarkable for him being ready to do whatever it takes to feel better even if that means losing a leg. I believe he is awake and alert and he might take the time to see if this is the treatment necessary. He just feels crummy all over and achy and just feels blah. PHYSICAL EXAMINATION: GENERAL: He is a well-developed, well-nourished, ill-appearing white male in least mild distress. VITAL SIGNS: Stable. He is afebrile. HEAD, EYES, EARS, NOSE AND THROAT: Unremarkable. NECK: Supple, without adenopathy or thyromegaly. CHEST: Clear to auscultation and percussion. HEART: Regular rate and rhythm without S3, S4 or murmur. ABDOMEN: Soft, nontender, without hepatosplenomegaly or masses. EXTREMITIES: Dressed. NEUROLOGIC: Nonfocal. ASSESSMENT: Septic picture, likely related to left heel ulcer and other problems listed above. PLAN: ID help Vascular Surgery if needed. The patient will be monitored, managed and treated appropriately. LINDA HOLDEN: Santiago TID: [id number]
--- NOTE | 2021-11-26 15:12 | NUR ---
Wound/Ostomy Care Wound Type/Assessment: WC consult for left heel wound. Pt has DFU to left heel and left lateral ankle as well as stage III PU to buttocks. Cleansed, measured and redressed wounds. Treatment Recommendations/Plan: Left heel- hydrofera blue and foam. Left lateral ankle- foam. Change every 2-3 days. Buttocks- barrier cream Education provided: WC POC and PU prevention, pt v/u Offloading surface/device: TQ2H, P500 bed, heel medix boots Recommended Referrals/Tests: defer to vascular surgery Discharge Recommendations for dressings: see above
--- NOTE | 2021-11-26 16:41 | NUR ---
Call placed to Dez Hernandez's office, left message on the on-call doctor's voicemail to return call regarding pseudamonas in patient's blood cultures.
--- NOTE | 2021-11-26 17:11 | NUR ---
Call returned from Dr. Hernandez to notify of patient's positive blood cultures, no new orders received.
[2021-11-26] MEDS: MIRTAZAPINE 15 MG TABLET PO SCH (20:56)
[2021-11-26] MEDS: ATORVASTATIN CALCIUM 20 MG TABLET PO SCH (20:56)
[2021-11-26] MEDS: DONEPEZIL HCL 10 MG TABLET. PO SCH (20:56)
[2021-11-26] MEDS: LATANOPROST 0.005% OPHTH SOLUTION 2.5ML BOTTLE. OU SCH (20:57)
--- NOTE | 2021-11-26 23:01 | NUR ---
Bolus on going at this time. BP @ 2248: 86/42 HR: 60. Pt responds to stimulus by opening eyes, denies discomfort. Will continue to monitor.
[2021-11-26] MEDS ORDERED: IV NORMAL SALINE 500ML BAG 500 ML IV ONE (23:30)
[2021-11-27] VITALS (8 sets, daily range): BP systolic 84–140; BP diastolic 43–65
[2021-11-27] MEDS: MEROPENEM 500 MG in IV NORMAL SALINE 50ML 50 ML IV SCH ×5 (00:16→23:49)
[2021-11-27] MEDS: LEVOTHYROXINE 75 MCG TABLET PO SCH (05:33)
[2021-11-27] MEDS: INSULIN LISPRO 300 UNITS/3 ML VIAL. SQ SCH ×7 (07:30→21:00)
--- NOTE | 2021-11-27 07:49 | PDOC ---
Infectious Disease Note Subjective: Subjective Pt says feels better some nausea Vital Signs: Vital Signs Vital Signs Date Time Temp Pulse Resp B/P (MAP) Pulse Ox O2 Delivery O2 Flow Rate FiO2 11/27/21 07:20 Nasal Cannula 3.0 11/27/21 03:14 97.5 71 16 116/65 (82) 91 97.5 Physical Exam: PHYSICAL EXAM GENERAL: The patient is alert, awake, answers a few questions but slow in answering them appears comfortable on 2 liters O2 by nasal cannula. HEENT: Normocephalic and atraumatic. No conjunctival lesions. NECK: Supple. LUNGS: Decreased breath sounds at bases. No accessory muscle use. No wheezing. HEART: S1, S2. No murmurs. ABDOMEN: Soft, nontender, nondistended. Bowel sounds present. GENITOURINARY: Gandhi in place. EXTREMITIES: Muscle atrophy, chronic. Multiple superficial abrasions present in bilateral legs. Rooke boots present. Bilateral lower ext wounds dressed,dry not taken down CENTRAL NERVOUS SYSTEM: Alert, awake, answers a few questions, very slow in answering questions. Has tremors more in upper extreimities. Memory is very poor. PSYCHIATRIC: cooperative, somewhat anxious DERMATOLOGIC: Warm and dry. No generalized rash except for above. Right upper extremity PICC line clean. Medications: Inpatient Meds: Medications reviewed. Labs: Lab Laboratory Tests Test 11/26/21 07:50 11/26/21 11:12 11/26/21 16:42 11/26/21 19:51 Glucose (Fingerstick) 389 mg/dL (70-99) 461 mg/dL (70-99) 358 mg/dL (70-99) 246 mg/dL (70-99) Objective: Assessment: 1. Fever from sepsis and gram-negative bacteremia. 2. PSAE bacteremia. 3. Leukocytosis and lactic acidosis. 4. Urinary tract infection. 5. 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 6. Diabetes mellitus. 7. Nausea, vomiting, confusion.Improving 8. COVID-19 positive at the outside facility. Rapid COVID negative here. COVID PCR neg here 9. Depression, Alzheimer's, Parkinson's. 10. Congestive heart failure. 11. Anxiety. 12 Anemia. 13. Generalized debility. 14. Muscle atrophy. 15 Small right heel ulcer. 16. Peripheral vascular disease. 17 [facility] resident. Plan: Plan of Care Cont daptomycin and meropenem. Follow up blood cultures and f/u UC. Vascular had recommended BKA last admission due to his nonambulatory status, but family had refused for the same. Off load, Continue supportive care. Maintain aspiration precaution. Change gandhi if not done already CT A/P to r/o obstruction ASH SANZ MD Nov 27, 2021 07:49
[2021-11-27] MEDS: DEXTROSE 50% 25 GM / 50ML DISP.SYRIN. IV PRN (07:53)
--- NOTE | 2021-11-27 07:55 | NUR ---
Pt's FSBS 68 this am. Pt asymptomatic. Dextrose 12.5 g administered per protocol. Refer to EMAR for additional details. 240 cc of orange juice given to pt. Will recheck FSBS post administration.
[2021-11-27] MEDS: INSULIN GLARGINE SYRINGE. SQ SCH (08:49)
[2021-11-27] MEDS: FERROUS SULFATE 325 MG TABLET. PO SCH ×2 (08:50→17:00)
[2021-11-27] MEDS: ASPIRIN ENTERIC COATED 81 MG TABLET.DR. PO SCH (08:50)
[2021-11-27] MEDS: CARBIDOPA/LEVODOPA CR 25/100MG TABLET.SA. PO SCH ×3 (09:17→21:10)
[2021-11-27] MEDS: CYANOCOBALAMIN (VITAMIN B-12) 1,000 MCG TABLET. PO SCH (09:17)
[2021-11-27] MEDS: GABAPENTIN 100 MG CAPSULE. PO SCH ×3 (09:18→21:10)
[2021-11-27] MEDS: LISINOPRIL 20 MG TABLET PO SCH (09:18)
[2021-11-27] MEDS: SENNOSIDES/DOCUSATE 8.6/50MG TABLET. PO SCH ×2 (09:18→21:14)
[2021-11-27] MEDS: CITALOPRAM 20 MG TABLET. PO SCH (09:18)
[2021-11-27] MEDS: MULTIVITAMIN with MINERAL TABLET. PO SCH (09:18)
[2021-11-27] MEDS: ALPRAZolam 0.25 MG TABLET PO SCH ×3 (09:20→21:08)
[2021-11-27] MEDS: TIMOLOL 0.5% OPHTH SOLUTION 5ML BOTTLE. OU SCH ×2 (09:21→21:12)
[2021-11-27] MEDS: BRIMONIDINE 0.2% OPHTH SOLUTION 5ML BOTTLE. OU SCH ×2 (09:21→21:12)
[2021-11-27] MEDS: DAPTOmycin (GENERIC) IVPB 430 MG in IV NORMAL SALINE 50ML 50 ML IV SCH (13:05)
--- NOTE | 2021-11-27 13:56 | RAD ---
Exam performed: CT scan of the abdomen and pelvis without contrast. Clinical Indication: Reason: bacteremia / Spl. Instructions: / History: Date of Service: 11/27/2021 11:25 AM. Comparison: CT abdomen and pelvis from 03/18/2017 no priors Technique: Contiguous helical acquisitions are obtained through the abdomen and pelvis without IV con trast. Sagittal and coronal reformatted images are obtained and reviewed. CT abdomen and pelvis findings: Mild bibasilar atelectasis and small bilateral pleural effusions are seen. Visualized heart is normal . Diffuse atheromatous coronary calcification is noted. Lack of IV contrast limits evaluation of abdominal viscera, however the liver, spleen and pancreas ar e normal. Cholelithiasis. Both adrenal glands and bilateral kidneys are normal in size without hydron ephrosis or nephrolithiasis. Aorta is normal in caliber without aneurysm. Small and large bowel loops are normal. Appendix is not clearly visualized. Distal ureters are nondilated. Urinary bladder is de compressed and thick walled. . [Prostate gland, seminal vesicles and rectum appear normal. There is stool impaction the rectosigmoid region. Bones are normal.] No free or focal fluid collections are id entified. Impression: Cholelithiasis. Bibasilar atelectasis and small bilateral pleural effusions. Scattered stool throughout the colon with stool impaction the rectosigmoid region. Electronically signed by: Carrol Perdomo MD (11/27/2021 1:53 PM) [facility]
--- NOTE | 2021-11-27 17:00 | PN ---
DATE: 11/27/2021 LOCATION: He is in room 562. SUBJECTIVE: This 76-year-old male was hospitalized with generalized weakness, nausea, sepsis with currently growing Pseudomonas out of his bloodstream. He has a left heel osteomyelitis that could be the source, but also has evidence of urinary tract infection with any culture results from there still pending. He had been extremely hyperglycemic, but this actually has improved in the last 12 hours, likely related to his infection improving. He is extremely brittle diabetic and I would not be surprised if we do not see some low sugars before this is over. His niece is present at the bedside this morning who is power of real estate associate attorney and wishes him to be a DNR and he is agreeable and actually participates in the conversation. They are both for a leg amputation of that is what it takes eventually to remedy this in addition. OBJECTIVE: VITAL SIGNS: Remarkable for hypotension. He did receive some fluids during the night and it has actually improved his blood pressure somewhat. GENERAL: He is awake and alert. He has been afebrile. CHEST: Clear to auscultation. HEART: Regular rate and rhythm without S3, S4 or murmur. ABDOMEN: Benign. EXTREMITIES: Legs are dressed. NEUROLOGIC: Nonfocal. IMPRESSION: 1. Pseudomonal sepsis with bacteremia from leg versus urinary tract source. 2. Diabetes mellitus. 3. General debility. 4. Osteomyelitis of left heel. PLAN: Follow ID's lead. We will need to see what urine cultures grew out before assuming that the heel is the issue, but again as of now, the patient is a DNR and the green light has been given for amputation of what is needed to solve the problem. EB/BALWINDER HOLDEN: Santiago TID: [id number]
[2021-11-27] MEDS: LACTOBACILLUS RHAMNOSUS GG 1 CAPSULE. PO SCH (21:10)
[2021-11-27] MEDS: ATORVASTATIN CALCIUM 20 MG TABLET PO SCH (21:10)
[2021-11-27] MEDS: MIRTAZAPINE 15 MG TABLET PO SCH (21:10)
[2021-11-27] MEDS: DONEPEZIL HCL 10 MG TABLET. PO SCH (21:11)
[2021-11-27] MEDS: LATANOPROST 0.005% OPHTH SOLUTION 2.5ML BOTTLE. OU SCH (21:12)
[2021-11-28 03:26] VITALS: BP 133/48
[2021-11-28] MEDS: MEROPENEM 500 MG in IV NORMAL SALINE 50ML 50 ML IV SCH ×4 (06:13→23:43)
[2021-11-28] MEDS: LEVOTHYROXINE 75 MCG TABLET PO SCH (06:13)
[2021-11-28 07:00] VITALS: BP 114/44
[2021-11-28] MEDS: INSULIN LISPRO 300 UNITS/3 ML VIAL. SQ SCH ×7 (07:53→21:00)
[2021-11-28 07:55] LABS: BASO # 0.1 x10^3/uL (0.0-0.2); BASO % 1 % (0-3); EOS # 0.7 x10^3/uL (0.0-0.7); EOS % 7 % (0-3); HEMOGLOBIN 8.4 g/dL (13.0-17.5); LYMPH # 1.5 x10^3/uL (1.0-4.8); LYMPH % 17 % (24-48); MEAN CORPUSCULAR HEMOGLOBIN 28 pg (25-35); MEAN CORPUSCULAR HGB CONC 32 g/dL (31-37); MEAN CORPUSCULAR VOLUME 86 fL (79-100); MONO # 0.8 x10^3/uL (0.0-1.1); MONO % 9 % (0-9); NEUT # 5.8 x10^3/uL (1.8-7.7); NEUT % 66 % (31-73); PLATELET COUNT 308 x10^3/uL (140-400); RED BLOOD COUNT 3.04 x10^6/uL (4.30-5.70); RED CELL DISTRIBUTION WIDTH 17.4 % (11.5-14.5); WHITE BLOOD COUNT 8.8 x10^3/uL (4.0-11.0)
[2021-11-28 08:21] LABS: ALBUMIN/GLOBULIN RATIO 0.5 (1.0-1.7); ALK PHOS 101 U/L (46-116); ANION GAP 9 (6-14); AST (SGOT) 31 U/L (15-37); BLOOD UREA NITROGEN 8 mg/dL (8-26); BUN/CREATININE RATIO 8 (6-20); CALCIUM 7.9 mg/dL (8.5-10.1); CARBON DIOXIDE 26 mmol/L (21-32); CHLORIDE 107 mmol/L (98-107); CREATINE KINASE 191 U/L (39-308); GFR 72.5; GLUCOSE 289 mg/dL (70-99); POTASSIUM 3.6 mmol/L (3.5-5.1); SODIUM 142 mmol/L (136-145); TOTAL BILIRUBIN 0.2 mg/dL (0.2-1.0); TOTAL PROTEIN 5.8 g/dL (6.4-8.2)
[2021-11-28] MEDS: GABAPENTIN 100 MG CAPSULE. PO SCH ×3 (08:35→21:23)
[2021-11-28] MEDS: MULTIVITAMIN with MINERAL TABLET. PO SCH (08:35)
[2021-11-28] MEDS: LACTOBACILLUS RHAMNOSUS GG 1 CAPSULE. PO SCH ×2 (08:35→21:23)
[2021-11-28] MEDS: CYANOCOBALAMIN (VITAMIN B-12) 1,000 MCG TABLET. PO SCH (08:35)
[2021-11-28] MEDS: CITALOPRAM 20 MG TABLET. PO SCH (08:35)
[2021-11-28] MEDS: FERROUS SULFATE 325 MG TABLET. PO SCH ×2 (08:35→17:00)
[2021-11-28] MEDS: SENNOSIDES/DOCUSATE 8.6/50MG TABLET. PO SCH ×2 (08:35→21:23)
[2021-11-28] MEDS: CARBIDOPA/LEVODOPA CR 25/100MG TABLET.SA. PO SCH ×3 (08:35→21:23)
[2021-11-28] MEDS: ASPIRIN ENTERIC COATED 81 MG TABLET.DR. PO SCH (08:35)
[2021-11-28] MEDS: LISINOPRIL 20 MG TABLET PO SCH (08:36)
[2021-11-28] MEDS: ALPRAZolam 0.25 MG TABLET PO SCH ×3 (08:36→21:23)
[2021-11-28] MEDS: TIMOLOL 0.5% OPHTH SOLUTION 5ML BOTTLE. OU SCH ×2 (08:38→21:26)
[2021-11-28] MEDS: BRIMONIDINE 0.2% OPHTH SOLUTION 5ML BOTTLE. OU SCH ×2 (08:38→21:26)
[2021-11-28 08:46] LABS: ALT (SGPT) < 6 U/L (16-63)
[2021-11-28] MEDS: INSULIN GLARGINE SYRINGE. SQ SCH (09:36)
--- NOTE | 2021-11-28 10:57 | PDOC ---
Infectious Disease Note Subjective: Subjective Pt resting,, says feels ok Vital Signs: Vital Signs Vital Signs Date Time Temp Pulse Resp B/P (MAP) Pulse Ox O2 Delivery O2 Flow Rate FiO2 11/28/21 08:36 59 114/44 11/28/21 07:09 Nasal Cannula 3.0 11/28/21 07:00 97.9 16 99 97.9 Physical Exam: PHYSICAL EXAM GENERAL: The patient is alert, awake, answers a few questions but slow in answering them appears comfortable on 2 liters O2 by nasal cannula. HEENT: Normocephalic and atraumatic. No conjunctival lesions. NECK: Supple. LUNGS: Decreased breath sounds at bases. No accessory muscle use. No wheezing. HEART: S1, S2. No murmurs. ABDOMEN: Soft, nontender, nondistended. Bowel sounds present. GENITOURINARY: Gandhi in place. EXTREMITIES: Muscle atrophy, chronic. Multiple superficial abrasions present in bilateral legs. Rooke boots present. Bilateral lower ext wounds dressed,dry not taken down CENTRAL NERVOUS SYSTEM: Alert, awake, answers a few questions, very slow in answering questions. Has tremors more in upper extreimities. Memory is very poor. PSYCHIATRIC: cooperative, somewhat anxious DERMATOLOGIC: Warm and dry. No generalized rash except for above. Right upper extremity PICC line clean. Medications: Inpatient Meds: Medications reviewed. Labs: Lab Laboratory Tests Test 11/27/21 11:35 11/27/21 16:47 11/27/21 19:43 11/28/21 06:17 Glucose (Fingerstick) 144 mg/dL (70-99) 160 mg/dL (70-99) 141 mg/dL (70-99) 277 mg/dL (70-99) Test 11/28/21 07:15 11/28/21 07:32 White Blood Count 8.8 x10^3/uL (4.0-11.0) Red Blood Count 3.04 x10^6/uL (4.30-5.70) Hemoglobin 8.4 g/dL (13.0-17.5) Hematocrit 26.0 % (39.0-53.0) Mean Corpuscular Volume 86 fL (79-100) Mean Corpuscular Hemoglobin 28 pg (25-35) Mean Corpuscular Hemoglobin Concent 32 g/dL (31-37) Red Cell Distribution Width 17.4 % (11.5-14.5) Platelet Count 308 x10^3/uL (140-400) Neutrophils (%) (Auto) 66 % (31-73) Lymphocytes (%) (Auto) 17 % (24-48) Monocytes (%) (Auto) 9 % (0-9) Eosinophils (%) (Auto) 7 % (0-3) Basophils (%) (Auto) 1 % (0-3) Neutrophils # (Auto) 5.8 x10^3/uL (1.8-7.7) Lymphocytes # (Auto) 1.5 x10^3/uL (1.0-4.8) Monocytes # (Auto) 0.8 x10^3/uL (0.0-1.1) Eosinophils # (Auto) 0.7 x10^3/uL (0.0-0.7) Basophils # (Auto) 0.1 x10^3/uL (0.0-0.2) Sodium Level 142 mmol/L (136-145) Potassium Level 3.6 mmol/L (3.5-5.1) Chloride Level 107 mmol/L (98-107) Carbon Dioxide Level 26 mmol/L (21-32) Anion Gap 9 (6-14) Blood Urea Nitrogen 8 mg/dL (8-26) Creatinine 1.0 mg/dL (0.7-1.3) Estimated GFR (Cockcroft-Gault) 72.5 BUN/Creatinine Ratio 8 (6-20) Glucose Level 289 mg/dL (70-99) Calcium Level 7.9 mg/dL (8.5-10.1) Total Bilirubin 0.2 mg/dL (0.2-1.0) Aspartate Amino Transf (AST/SGOT) 31 U/L (15-37) Alanine Aminotransferase (ALT/SGPT) < 6 U/L (16-63) Alkaline Phosphatase 101 U/L (46-116) Creatine Kinase 191 U/L (39-308) Total Protein 5.8 g/dL (6.4-8.2) Albumin 2.0 g/dL (3.4-5.0) Albumin/Globulin Ratio 0.5 (1.0-1.7) Glucose (Fingerstick) 268 mg/dL (70-99) Objective: Assessment: 1. Fever from sepsis and gram-negative bacteremia. 2. PSAE bacteremia.Source GI or 3. Leukocytosis and lactic acidosis. 4. Urinary tract infection.UC neg so far 5. 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 6. Diabetes mellitus. 7. Nausea, vomiting, confusion.Improving 8. COVID-19 positive at the outside facility. Rapid COVID negative here. COVID PCR neg here 9. Depression, Alzheimer's, Parkinson's. 10. Congestive heart failure. 11. Anxiety. 12 Anemia. 13. Generalized debility. 14. Muscle atrophy. 15 Small right heel ulcer. 16. Peripheral vascular disease. 17 [facility] resident. Plan: Plan of Care Cont daptomycin and meropenem.Monitor CK on 11/28 191 Follow up blood cultures and f/u UC. Vascular had recommended BKA last admission due to his nonambulatory status, but family had refused for the same. Off load, Continue supportive care. Maintain aspiration precaution. Change gandhi if not done already CT A/P reviewed Consider Palliative care ASH SANZ MD Nov 28, 2021 10:57
[2021-11-28 11:00] VITALS: BP 115/53
[2021-11-28] MEDS: DAPTOmycin (GENERIC) IVPB 430 MG in IV NORMAL SALINE 50ML 50 ML IV SCH (12:35)
[2021-11-28 15:00] VITALS: BP 117/55
[2021-11-28] MEDS: MICAFUNGIN 100 MG in IV DEXTROSE 5% 100ML 100 ML IV SCH (15:51)
[2021-11-28 19:00] VITALS: BP 113/46
--- NOTE | 2021-11-28 19:36 | PN ---
DATE: 11/28/2021 LOCATION: He is in room 562. SUBJECTIVE: This 76-year-old male was hospitalized with generalized weakness, nausea, sepsis, growing Pseudomonas out of his bloodstream. Has a left heel osteomyelitis with ongoing IV antibiotics at skilled prior to admission. He does have evidence of urinary tract infection, but Margarita glabrata seems to be the organism that is growing out as of this afternoon. His sugars have actually improved as his infection seems to be improving as he is more awake and alert this morning. White count is down to normal. Left shift is resolved. He is an extremely brittle diabetic and sliding scale insulin will be continued at this point. He has been made a DNR per his DPOA's request. ID is talking about palliative care, which I think is certainly in the conversation and wonder if they feel an amputation would be something that would be helpful for his long-term comfort going forward and infection risk or whether they feel not. OBJECTIVE: VITAL SIGNS: Stable. He is afebrile. Blood pressures are better. GENERAL: He is awake and alert. He is afebrile. CHEST: Clear to auscultation. HEART: Regular rate and rhythm. ABDOMEN: Benign. EXTREMITIES: Legs are dressed. NEUROLOGIC: Nonfocal. IMPRESSION: 1. Pseudomonal sepsis with bacteremia, which I felt was probably urinary, but does not appear to be so. 2. Diabetes. 3. General debility. 4. Osteomyelitis of the left heel. PLAN: Follow ID's lead as far as antimicrobials and again would ask ID's opinion on amputation of the patient and DPOA who is his niece agreeable to the same and they felt like this would improve his quality of life going forward. SHEN HOLDEN: Santiago TID: [id number]
[2021-11-28] MEDS: MIRTAZAPINE 15 MG TABLET PO SCH (21:23)
[2021-11-28] MEDS: DONEPEZIL HCL 10 MG TABLET. PO SCH (21:23)
[2021-11-28] MEDS: LATANOPROST 0.005% OPHTH SOLUTION 2.5ML BOTTLE. OU SCH (21:26)
[2021-11-28] MEDS: ATORVASTATIN CALCIUM 20 MG TABLET PO SCH (21:27)
[2021-11-28 23:00] VITALS: BP 111/39
[2021-11-29 03:00] VITALS: BP 129/57
[2021-11-29] MEDS: ACETAMINOPHEN 325 MG TABLET. PO PRN (03:28)
[2021-11-29] MEDS: LEVOTHYROXINE 75 MCG TABLET PO SCH (06:36)
[2021-11-29] MEDS: MEROPENEM 500 MG in IV NORMAL SALINE 50ML 50 ML IV SCH ×3 (06:36→17:38)
[2021-11-29 07:00] VITALS: BP 138/60
[2021-11-29] MEDS: INSULIN LISPRO 300 UNITS/3 ML VIAL. SQ SCH ×7 (07:30→21:00)
[2021-11-29] MEDS: MULTIVITAMIN with MINERAL TABLET. PO SCH (08:54)
[2021-11-29] MEDS: ASPIRIN ENTERIC COATED 81 MG TABLET.DR. PO SCH (08:54)
[2021-11-29] MEDS: CITALOPRAM 20 MG TABLET. PO SCH (08:55)
[2021-11-29] MEDS: CARBIDOPA/LEVODOPA CR 25/100MG TABLET.SA. PO SCH ×3 (08:55→21:00)
[2021-11-29] MEDS: ALPRAZolam 0.25 MG TABLET PO SCH ×3 (08:55→21:00)
[2021-11-29] MEDS: GABAPENTIN 100 MG CAPSULE. PO SCH ×3 (08:55→21:00)
[2021-11-29] MEDS: FERROUS SULFATE 325 MG TABLET. PO SCH ×2 (08:55→17:37)
[2021-11-29] MEDS: CYANOCOBALAMIN (VITAMIN B-12) 1,000 MCG TABLET. PO SCH (08:55)
[2021-11-29] MEDS: SENNOSIDES/DOCUSATE 8.6/50MG TABLET. PO SCH ×2 (08:56→21:00)
[2021-11-29] MEDS: LISINOPRIL 20 MG TABLET PO SCH (08:56)
[2021-11-29] MEDS: LACTOBACILLUS RHAMNOSUS GG 1 CAPSULE. PO SCH ×2 (08:56→21:00)
[2021-11-29] MEDS: TIMOLOL 0.5% OPHTH SOLUTION 5ML BOTTLE. OU SCH ×2 (08:59→22:26)
[2021-11-29] MEDS: BRIMONIDINE 0.2% OPHTH SOLUTION 5ML BOTTLE. OU SCH ×2 (08:59→22:26)
[2021-11-29] MEDS: INSULIN GLARGINE SYRINGE. SQ SCH (09:09)
[2021-11-29 11:00] VITALS: BP 145/59
--- NOTE | 2021-11-29 11:25 | PDOC ---
Provider Note Date of Service: DATE: 11/29/21 TIME: 11:24 Provider Note status same, meds same, no new labs- cont current care Justifications for Admission Other Justification KAM WHITTAKER MD Nov 29, 2021 11:25
[2021-11-29] MEDS: DAPTOmycin (GENERIC) IVPB 430 MG in IV NORMAL SALINE 50ML 50 ML IV SCH (12:25)
--- NOTE | 2021-11-29 13:42 | PDOC ---
Infectious Disease Note Subjective: Subjective Patient denies any complaints Discussed with RN Vital Signs: Vital Signs Vital Signs Date Time Temp Pulse Resp B/P (MAP) Pulse Ox O2 Delivery O2 Flow Rate FiO2 11/29/21 11:00 96.0 59 16 145/59 (87) 100 Nasal Cannula 3.0 96.0 Physical Exam: PHYSICAL EXAM GENERAL: The patient is alert, awake, answers a few questions but slow in answering them appears comfortable on 2 liters O2 by nasal cannula. HEENT: Normocephalic and atraumatic. No conjunctival lesions. NECK: Supple. LUNGS: Decreased breath sounds at bases. No accessory muscle use. No wheezing. HEART: S1, S2. No murmurs. ABDOMEN: Soft, nontender, nondistended. Bowel sounds present. GENITOURINARY: Gandhi in place. EXTREMITIES: Muscle atrophy, chronic. Multiple superficial abrasions present in bilateral legs. Rooke boots present. Bilateral lower ext wounds dressed,dry not taken down CENTRAL NERVOUS SYSTEM: Alert, awake, answers a few questions, very slow in answering questions. Has tremors more in upper extreimities. Memory is very poor. PSYCHIATRIC: cooperative, somewhat anxious DERMATOLOGIC: Warm and dry. No generalized rash except for above. Right upper extremity PICC line clean. Medications: Inpatient Meds: Medications reviewed. Labs: Lab Laboratory Tests Test 11/28/21 16:49 11/28/21 20:47 11/29/21 08:03 11/29/21 11:48 Glucose (Fingerstick) 155 mg/dL (70-99) 128 mg/dL (70-99) 139 mg/dL (70-99) 154 mg/dL (70-99) Objective: Assessment: 1. Fever from sepsis and gram-negative bacteremia. 2. PSAE bacteremia.Source GI or 3. Leukocytosis and lactic acidosis. 4. Urinary tract infection.UC C glabrata 5. 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 6. Diabetes mellitus. 7. Nausea, vomiting, confusion.Improving 8. COVID-19 positive at the outside facility. Rapid COVID negative here. COVID PCR neg here 9. Depression, Alzheimer's, Parkinson's. 10. Congestive heart failure. 11. Anxiety. 12 Anemia. 13. Generalized debility. 14. Muscle atrophy. 15 Small right heel ulcer. 16. Peripheral vascular disease. 17 [facility] resident. Plan: Plan of Care Cont daptomycin and meropenem.Monitor CK on 11/28 191 Cont Micafungin Change gandhi if not done already Vascular had recommended BKA last admission due to his nonambulatory status, but family had refused for the same. Off load, Continue supportive care. Maintain aspiration precaution. Change gandhi if not done already CT A/P reviewed Consider Palliative care D/W ASH ROSE MD Nov 29, 2021 13:42
[2021-11-29 15:00] VITALS: BP 150/66
[2021-11-29] MEDS: MICAFUNGIN 100 MG in IV DEXTROSE 5% 100ML 100 ML IV SCH (15:42)
[2021-11-29 19:00] VITALS: BP 144/57
[2021-11-29] MEDS: DONEPEZIL HCL 10 MG TABLET. PO SCH (21:00)
[2021-11-29] MEDS: MIRTAZAPINE 15 MG TABLET PO SCH (21:00)
[2021-11-29] MEDS: ATORVASTATIN CALCIUM 20 MG TABLET PO SCH (21:00)
[2021-11-29] MEDS: LATANOPROST 0.005% OPHTH SOLUTION 2.5ML BOTTLE. OU SCH (22:26)
[2021-11-29 23:00] VITALS: BP 124/64
[2021-11-30] MEDS: MEROPENEM 500 MG in IV NORMAL SALINE 50ML 50 ML IV SCH ×4 (00:30→18:54)
--- NOTE | 2021-11-30 01:25 | RAD ---
Examination: US DPLX VENOUS EXTREMITY UPPER RT Comparison: None History: R/O DVT:; RT arm swollen Technique: Multiple high resolution real-time grayscale images with color Doppler and pulse wave dupl ex imaging with compression of the venous structures in the right upper extremity. Findings: The right internal jugular, subclavian and axillary veins are normally compressible with good flow. N o internal thrombus is seen. Distally within the upper extremity the brachial, basilic, and radial vessels are also patent without evidence of thrombus. Pulmonary veins are not visualized in the forearm due to swelling. Intravenous line seen in the basilic and subclavian veins. Impression: Negative for DVT in the right upper extremity. Electronically signed by: Omega Montalvo MD (11/30/2021 1:22 AM) [facility]
[2021-11-30 03:00] VITALS: BP 133/62
[2021-11-30] MEDS: LEVOTHYROXINE 75 MCG TABLET PO SCH (05:50)
[2021-11-30 07:00] VITALS: BP 126/47
[2021-11-30] MEDS: LACTOBACILLUS RHAMNOSUS GG 1 CAPSULE. PO SCH ×2 (08:28→21:53)
[2021-11-30] MEDS: SENNOSIDES/DOCUSATE 8.6/50MG TABLET. PO SCH ×2 (08:28→21:53)
[2021-11-30] MEDS: FERROUS SULFATE 325 MG TABLET. PO SCH ×2 (08:28→17:54)
[2021-11-30] MEDS: MULTIVITAMIN with MINERAL TABLET. PO SCH (08:28)
[2021-11-30] MEDS: CARBIDOPA/LEVODOPA CR 25/100MG TABLET.SA. PO SCH ×3 (08:28→21:53)
[2021-11-30] MEDS: ASPIRIN ENTERIC COATED 81 MG TABLET.DR. PO SCH (08:28)
[2021-11-30] MEDS: GABAPENTIN 100 MG CAPSULE. PO SCH ×3 (08:29→21:52)
[2021-11-30] MEDS: CITALOPRAM 20 MG TABLET. PO SCH (08:29)
[2021-11-30] MEDS: ACETAMINOPHEN 325 MG TABLET. PO PRN (08:29)
[2021-11-30] MEDS: LISINOPRIL 20 MG TABLET PO SCH (08:34)
[2021-11-30] MEDS: BRIMONIDINE 0.2% OPHTH SOLUTION 5ML BOTTLE. OU SCH ×2 (08:34→22:00)
[2021-11-30] MEDS: TIMOLOL 0.5% OPHTH SOLUTION 5ML BOTTLE. OU SCH ×2 (08:34→22:00)
[2021-11-30] MEDS: CYANOCOBALAMIN (VITAMIN B-12) 1,000 MCG TABLET. PO SCH (08:34)
--- NOTE | 2021-11-30 08:42 | PDOC ---
Provider Note Date of Service: DATE: 11/30/21 TIME: 08:40 Provider Note vss, no temp, output ok- labs same, mod anemia and renal fx- sleeping now, no dyspnea- cont current care, ? hospice as surgery not considered re family Justifications for Admission Other Justification KAM WHITTAKER MD Nov 30, 2021 08:42
[2021-11-30] MEDS: INSULIN LISPRO 300 UNITS/3 ML VIAL. SQ SCH ×7 (08:45→21:00)
[2021-11-30] MEDS: INSULIN GLARGINE SYRINGE. SQ SCH (08:46)
[2021-11-30] MEDS: ALPRAZolam 0.25 MG TABLET PO SCH ×3 (08:49→21:53)
[2021-11-30 11:00] VITALS: BP 86/33
--- NOTE | 2021-11-30 11:32 | PDOC ---
Infectious Disease Note Subjective: Subjective Patient resting quietly Arousable but denies any complaints Discussed with RN Vital Signs: Vital Signs Vital Signs Date Time Temp Pulse Resp B/P (MAP) Pulse Ox O2 Delivery O2 Flow Rate FiO2 11/30/21 08:34 75 147/62 11/30/21 08:00 Nasal Cannula 3.0 11/30/21 07:00 99.9 16 100 99.9 Physical Exam: PHYSICAL EXAM GENERAL: The patient is alert, awake, answers a few questions but slow in answering them appears comfortable on 2 liters O2 by nasal cannula. HEENT: Normocephalic and atraumatic. No conjunctival lesions. NECK: Supple. LUNGS: Decreased breath sounds at bases. No accessory muscle use. No wheezing. HEART: S1, S2. No murmurs. ABDOMEN: Soft, nontender, nondistended. Bowel sounds present. GENITOURINARY: Gandhi in place. EXTREMITIES: Muscle atrophy, chronic. Multiple superficial abrasions present in bilateral legs. Rooke boots present. Bilateral lower ext wounds dressed,dry not taken down CENTRAL NERVOUS SYSTEM: Alert, awake, answers a few questions, very slow in answering questions. Has tremors more in upper extreimities. Memory is very poor. PSYCHIATRIC: cooperative, somewhat anxious DERMATOLOGIC: Warm and dry. No generalized rash except for above. Right upper extremity PICC line clean. Medications: Inpatient Meds: Medications reviewed. Labs: Lab Laboratory Tests Test 11/29/21 11:48 11/29/21 16:26 11/29/21 20:17 11/30/21 05:51 Glucose (Fingerstick) 154 mg/dL (70-99) 84 mg/dL (70-99) 109 mg/dL (70-99) 130 mg/dL (70-99) Test 11/30/21 07:59 Glucose (Fingerstick) 168 mg/dL (70-99) Objective: Assessment: 1. Fever from sepsis and gram-negative bacteremia. 2. PSAE bacteremia.Source GI or 3. Leukocytosis and lactic acidosis. 4. Urinary tract infection.UC C glabrata 5. 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 6. Diabetes mellitus. 7. Nausea, vomiting, confusion.Improving 8. COVID-19 positive at nursing facility. Rapid COVID and COVID PCR neg here 9. Depression, Alzheimer's, Parkinson's. 10. Congestive heart failure. 11. Anxiety. 12 Anemia. 13. Generalized debility. 14. Muscle atrophy. 15 Small right heel ulcer. 16. Peripheral vascular disease. 17 [facility] resident. Plan: Plan of Care Cont daptomycin and meropenem.Monitor CK on 11/28 191 Cont Micafungin Change gandhi if not done already Vascular had recommended BKA last admission due to his nonambulatory status, but family had refused for the same.Antibiotic alone may not be optimal Off load, Continue supportive care. Maintain aspiration precaution. Change gandhi if not done already CT A/P reviewed Consider Palliative care D/W ASH ROSE MD Nov 30, 2021 11:31
[2021-11-30] MEDS: DAPTOmycin (GENERIC) IVPB 430 MG in IV NORMAL SALINE 50ML 50 ML IV SCH (13:39)
[2021-11-30 15:00] VITALS: BP 95/38
[2021-11-30] MEDS: MICAFUNGIN 100 MG in IV DEXTROSE 5% 100ML 100 ML IV SCH (15:24)
[2021-11-30 19:00] VITALS: BP 104/45
[2021-11-30] MEDS: MIRTAZAPINE 15 MG TABLET PO SCH (21:53)
[2021-11-30] MEDS: ATORVASTATIN CALCIUM 20 MG TABLET PO SCH (21:53)
[2021-11-30] MEDS: DONEPEZIL HCL 10 MG TABLET. PO SCH (21:53)
[2021-11-30] MEDS: LATANOPROST 0.005% OPHTH SOLUTION 2.5ML BOTTLE. OU SCH (21:54)
[2021-11-30 23:00] VITALS: BP 112/59
[2021-12-01] MEDS: MEROPENEM 500 MG in IV NORMAL SALINE 50ML 50 ML IV SCH ×4 (01:31→17:58)
[2021-12-01 03:00] VITALS: BP 135/38
[2021-12-01] MEDS: LEVOTHYROXINE 75 MCG TABLET PO SCH (06:16)
[2021-12-01 07:00] VITALS: BP 150/73
[2021-12-01] MEDS: INSULIN LISPRO 300 UNITS/3 ML VIAL. SQ SCH ×7 (07:30→20:14)
[2021-12-01] MEDS: CARBIDOPA/LEVODOPA CR 25/100MG TABLET.SA. PO SCH ×3 (08:30→20:36)
[2021-12-01] MEDS: SENNOSIDES/DOCUSATE 8.6/50MG TABLET. PO SCH ×2 (08:31→20:37)
[2021-12-01] MEDS: FERROUS SULFATE 325 MG TABLET. PO SCH ×2 (08:31→16:55)
[2021-12-01] MEDS: ASPIRIN ENTERIC COATED 81 MG TABLET.DR. PO SCH (08:31)
[2021-12-01] MEDS: LACTOBACILLUS RHAMNOSUS GG 1 CAPSULE. PO SCH ×2 (08:31→20:36)
[2021-12-01] MEDS: GABAPENTIN 100 MG CAPSULE. PO SCH ×3 (08:31→20:36)
[2021-12-01] MEDS: MULTIVITAMIN with MINERAL TABLET. PO SCH (08:31)
[2021-12-01] MEDS: ALPRAZolam 0.25 MG TABLET PO SCH ×3 (08:31→20:35)
[2021-12-01] MEDS: LISINOPRIL 20 MG TABLET PO SCH (08:32)
[2021-12-01] MEDS: CITALOPRAM 20 MG TABLET. PO SCH (08:32)
[2021-12-01] MEDS: CYANOCOBALAMIN (VITAMIN B-12) 1,000 MCG TABLET. PO SCH (08:32)
[2021-12-01] MEDS: BRIMONIDINE 0.2% OPHTH SOLUTION 5ML BOTTLE. OU SCH ×2 (08:38→20:36)
[2021-12-01] MEDS: TIMOLOL 0.5% OPHTH SOLUTION 5ML BOTTLE. OU SCH ×2 (08:38→20:36)
--- NOTE | 2021-12-01 09:53 | PDOC ---
Infectious Disease Note Subjective Subjective Patient resting quietly Arousable but denies any complaints Discussed with SEDRICK STEIN no n/v/d/ Vital Sign Vital Signs Vital Signs Date Time Temp Pulse Resp B/P (MAP) Pulse Ox O2 Delivery O2 Flow Rate FiO2 12/01/21 08:33 57 150/73 12/01/21 07:00 96.0 16 97 Nasal Cannula 3.0 96.0 Physical Exam PHYSICAL EXAM GENERAL: The patient is alert, awake, answers a few questions but slow in answering them appears comfortable on 2 liters O2 by nasal cannula. HEENT: Normocephalic and atraumatic. No conjunctival lesions. NECK: Supple. LUNGS: Decreased breath sounds at bases. No accessory muscle use. No wheezing. HEART: S1, S2. No murmurs. ABDOMEN: Soft, nontender, nondistended. Bowel sounds present. GENITOURINARY: Gandhi in place. EXTREMITIES: Muscle atrophy, chronic. Multiple superficial abrasions present in bilateral legs. Rooke boots present. Bilateral lower ext wounds dressed,dry not taken down CENTRAL NERVOUS SYSTEM: Alert, awake, answers a few questions, very slow in answering questions. Has tremors more in upper extreimities. Memory is very poor. PSYCHIATRIC: cooperative, somewhat anxious DERMATOLOGIC: Warm and dry. No generalized rash except for above. Right upper extremity PICC line clean. Labs Lab Laboratory Tests Test 11/30/21 11:38 11/30/21 17:01 11/30/21 20:53 12/01/21 07:44 Glucose (Fingerstick) 191 mg/dL (70-99) 110 mg/dL (70-99) 116 mg/dL (70-99) 81 mg/dL (70-99) Micro Microbiology 11/28/21 Blood Culture - Preliminary, Resulted NO GROWTH AFTER 3 DAYS 11/25/21 Urine Culture - Final, Complete Margarita Glabrata Objective Assessment 1. Fever from sepsis and gram-negative bacteremia. 2. PSAE bacteremia.Source GI or 3. Leukocytosis and lactic acidosis. 4. Urinary tract infection.UC C glabrata 5. 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 6. Diabetes mellitus. 7. Nausea, vomiting, confusion.Improving 8. COVID-19 positive at nursing facility. Rapid COVID and COVID PCR neg here 9. Depression, Alzheimer's, Parkinson's. 10. Congestive heart failure. 11. Anxiety. 12 Anemia. 13. Generalized debility. 14. Muscle atrophy. 15 Small right heel ulcer. 16. Peripheral vascular disease. 17 half-way resident. Plan Plan of Care Cont daptomycin and meropenem.Monitor CK on 11/28 191 Cont Micafungin Change gandhi if not done already Vascular had recommended BKA last admission due to his nonambulatory status, but family had refused for the same.Antibiotic alone may not be optimal Off load, Continue supportive care. Maintain aspiration precaution. Change gandhi if not done already CT A/P reviewed Consider Palliative care D/W JOSE ROSE MD Dec 01, 2021 09:53
[2021-12-01 11:00] VITALS: BP 124/71
[2021-12-01] MEDS: INSULIN GLARGINE SYRINGE. SQ SCH (12:14)
[2021-12-01] MEDS: DAPTOmycin (GENERIC) IVPB 430 MG in IV NORMAL SALINE 50ML 50 ML IV SCH (13:37)
[2021-12-01 15:00] VITALS: BP 161/76
--- NOTE | 2021-12-01 15:30 | PN ---
DATE: 12/01/2021 DAILY PROGRESS NOTE LOCATION: He is in room 562. SUBJECTIVE: This 76-year-old male hospitalized with sepsis with Pseudomonas bacteremia. He also was on antibiotics at the skilled level prior to admission with daptomycin, ceftriaxone and Flagyl for left heel osteomyelitis. He is more awake and alert. He also has Margarita glabrata growing out of his urine. Sugars are dramatically improved as the infection is improved. OBJECTIVE: VITAL SIGNS: Stable. He has had a temperature yesterday of 99.9. GENERAL: He is awake and alert. CHEST: Clear to auscultation. HEART: Regular rate and rhythm. ABDOMEN: Benign. EXTREMITIES: Legs are dressed. NEUROLOGIC: Nonfocal. ASSESSMENT: 1. Pseudomonas sepsis with bacteremia. 2. Osteomyelitis, left heel. 3. Diabetes. 4. General debility. PLAN: ID to drive the bus for antimicrobials. If they do feel that amputation of the leg is best going forward, family and the patient are agreeable. RAMILA/BALWINDER DR: Santiago TID: [id number]
[2021-12-01] MEDS: MICAFUNGIN 100 MG in IV DEXTROSE 5% 100ML 100 ML IV SCH (16:55)
[2021-12-01 19:00] VITALS: BP 144/46
[2021-12-01] MEDS: ATORVASTATIN CALCIUM 20 MG TABLET PO SCH (20:36)
[2021-12-01] MEDS: MIRTAZAPINE 15 MG TABLET PO SCH (20:36)
[2021-12-01] MEDS: LATANOPROST 0.005% OPHTH SOLUTION 2.5ML BOTTLE. OU SCH (20:36)
[2021-12-01] MEDS: DONEPEZIL HCL 10 MG TABLET. PO SCH (20:38)
[2021-12-01 23:00] VITALS: BP 123/55
[2021-12-02] MEDS: MEROPENEM 500 MG in IV NORMAL SALINE 50ML 50 ML IV SCH ×5 (00:04→23:49)
[2021-12-02 03:00] VITALS: BP 135/49
[2021-12-02] MEDS: LEVOTHYROXINE 75 MCG TABLET PO SCH (05:53)
[2021-12-02 07:00] VITALS: BP 122/77
[2021-12-02] MEDS: INSULIN LISPRO 300 UNITS/3 ML VIAL. SQ SCH ×7 (07:30→21:00)
[2021-12-02] MEDS: SENNOSIDES/DOCUSATE 8.6/50MG TABLET. PO SCH ×2 (08:02→21:00)
[2021-12-02] MEDS: ALPRAZolam 0.25 MG TABLET PO SCH ×3 (09:20→21:46)
[2021-12-02] MEDS: MULTIVITAMIN with MINERAL TABLET. PO SCH (09:20)
[2021-12-02] MEDS: CITALOPRAM 20 MG TABLET. PO SCH (09:21)
[2021-12-02] MEDS: LISINOPRIL 20 MG TABLET PO SCH (09:21)
[2021-12-02] MEDS: LACTOBACILLUS RHAMNOSUS GG 1 CAPSULE. PO SCH ×2 (09:21→21:46)
[2021-12-02] MEDS: CARBIDOPA/LEVODOPA CR 25/100MG TABLET.SA. PO SCH ×3 (09:21→21:47)
[2021-12-02] MEDS: ASPIRIN ENTERIC COATED 81 MG TABLET.DR. PO SCH (09:21)
[2021-12-02] MEDS: FERROUS SULFATE 325 MG TABLET. PO SCH ×2 (09:21→18:06)
[2021-12-02] MEDS: CYANOCOBALAMIN (VITAMIN B-12) 1,000 MCG TABLET. PO SCH (09:21)
[2021-12-02] MEDS: TIMOLOL 0.5% OPHTH SOLUTION 5ML BOTTLE. OU SCH ×2 (09:22→21:46)
[2021-12-02] MEDS: BRIMONIDINE 0.2% OPHTH SOLUTION 5ML BOTTLE. OU SCH ×2 (09:22→21:46)
[2021-12-02] MEDS: GABAPENTIN 100 MG CAPSULE. PO SCH ×3 (09:22→21:46)
[2021-12-02] MEDS: ACETAMINOPHEN 325 MG TABLET. PO PRN (09:45)
[2021-12-02] MEDS: INSULIN GLARGINE SYRINGE. SQ SCH (09:51)
--- NOTE | 2021-12-02 10:03 | PDOC ---
Infectious Disease Note Subjective Subjective pt is feeling good ROS ROS no n/v/d/sob Vital Sign Vital Signs Vital Signs Date Time Temp Pulse Resp B/P (MAP) Pulse Ox O2 Delivery O2 Flow Rate FiO2 12/02/21 09:22 67 122/77 12/02/21 07:00 98.9 17 97 Nasal Cannula 3.0 98.9 Physical Exam PHYSICAL EXAM GENERAL: The patient is alert, awake, answers a few questions but slow in answering them appears comfortable on 2 liters O2 by nasal cannula. HEENT: Normocephalic and atraumatic. No conjunctival lesions. NECK: Supple. LUNGS: Decreased breath sounds at bases. No accessory muscle use. No wheezing. HEART: S1, S2. No murmurs. ABDOMEN: Soft, nontender, nondistended. Bowel sounds present. GENITOURINARY: Gandhi in place. EXTREMITIES: Muscle atrophy, chronic. Multiple superficial abrasions present in bilateral legs. Rooke boots present. Bilateral lower ext wounds dressed,dry not taken down CENTRAL NERVOUS SYSTEM: Alert, awake, answers a few questions, very slow in answering questions. Has tremors more in upper extreimities. Memory is very poor. PSYCHIATRIC: cooperative, somewhat anxious DERMATOLOGIC: Warm and dry. No generalized rash except for above. Right upper extremity PICC line clean. Labs Lab Laboratory Tests Test 12/01/21 11:18 12/01/21 16:40 12/01/21 19:27 12/02/21 07:22 Glucose (Fingerstick) 145 mg/dL (70-99) 188 mg/dL (70-99) 180 mg/dL (70-99) 124 mg/dL (70-99) Micro Objective Assessment 1. Fever from sepsis and gram-negative bacteremia. 2. PSAE bacteremia.Source GI or 3. Leukocytosis and lactic acidosis. 4. Urinary tract infection.UC C glabrata 5. 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 6. Diabetes mellitus. 7. Nausea, vomiting, confusion.Improving 8. COVID-19 positive at nursing facility. Rapid COVID and COVID PCR neg here 9. Depression, Alzheimer's, Parkinson's. 10. Congestive heart failure. 11. Anxiety. 12 Anemia. 13. Generalized debility. 14. Muscle atrophy. 15 Small right heel ulcer. 16. Peripheral vascular disease. 17 care home resident. Plan Plan of Care Cont daptomycin and meropenem.Monitor CK on 11/28 191 Vascular had recommended BKA last admission due to his nonambulatory status, but family had refused for the same.Antibiotic alone may not be optimal Off load, Continue supportive care. Maintain aspiration precaution. Change gandhi if not done already CT A/P reviewed D/W RN d/c ok on iv dapto and meropenem f/u with us in 2 wks JOSE SANZ MD Dec 02, 2021 10:03
[2021-12-02 11:00] VITALS: BP 133/98
[2021-12-02] MEDS ORDERED: IV NORMAL SALINE 1000ML BAG 1,000 ML IV SCH (12:30)
[2021-12-02] MEDS: DAPTOmycin (GENERIC) IVPB 430 MG in IV NORMAL SALINE 50ML 50 ML IV SCH (13:52)
[2021-12-02 15:00] VITALS: BP 100/29
[2021-12-02] MEDS ORDERED: DEXTROSE ORAL GEL 15 GM TUBE. ONE (16:30)
[2021-12-02] MEDS: DEXTROSE 50% 25 GM / 50ML DISP.SYRIN. IV PRN (18:06)
[2021-12-02 19:00] VITALS: BP 135/49
[2021-12-02] MEDS: DONEPEZIL HCL 10 MG TABLET. PO SCH (21:46)
[2021-12-02] MEDS: LATANOPROST 0.005% OPHTH SOLUTION 2.5ML BOTTLE. OU SCH (21:46)
[2021-12-02] MEDS: MIRTAZAPINE 15 MG TABLET PO SCH (21:47)
[2021-12-02] MEDS: ATORVASTATIN CALCIUM 20 MG TABLET PO SCH (21:47)
[2021-12-02 23:00] VITALS: BP 131/47
[2021-12-03 03:00] VITALS: BP 108/58
[2021-12-03] MEDS: MEROPENEM 500 MG in IV NORMAL SALINE 50ML 50 ML IV SCH ×2 (05:46→13:59)
[2021-12-03 07:00] VITALS: BP 105/36
[2021-12-03] MEDS: LEVOTHYROXINE 75 MCG TABLET PO SCH (07:17)
[2021-12-03] MEDS: INSULIN LISPRO 300 UNITS/3 ML VIAL. SQ SCH ×4 (07:30→12:50)
--- NOTE | 2021-12-03 08:22 | PDOC ---
Infectious Disease Note Subjective Subjective pt is feeling good ROS ROS No nausea vomiting diarrhea Vital Sign Vital Signs Vital Signs Date Time Temp Pulse Resp B/P (MAP) Pulse Ox O2 Delivery O2 Flow Rate FiO2 12/03/21 03:00 98.3 58 18 108/58 (75) 98 Nasal Cannula 3.0 98.3 Physical Exam PHYSICAL EXAM GENERAL: The patient is alert, awake, answers a few questions but slow in answering them appears comfortable on 2 liters O2 by nasal cannula. HEENT: Normocephalic and atraumatic. No conjunctival lesions. NECK: Supple. LUNGS: Decreased breath sounds at bases. No accessory muscle use. No wheezing. HEART: S1, S2. No murmurs. ABDOMEN: Soft, nontender, nondistended. Bowel sounds present. GENITOURINARY: Gandhi in place. EXTREMITIES: Muscle atrophy, chronic. Multiple superficial abrasions present in bilateral legs. Rooke boots present. Bilateral lower ext wounds dressed,dry not taken down CENTRAL NERVOUS SYSTEM: Alert, awake, answers a few questions, very slow in answering questions. Has tremors more in upper extreimities. Memory is very poor. PSYCHIATRIC: cooperative, somewhat anxious DERMATOLOGIC: Warm and dry. No generalized rash except for above. Right upper extremity PICC line clean. Labs Lab Laboratory Tests Test 12/02/21 11:35 12/02/21 16:28 12/02/21 16:36 12/02/21 17:12 Glucose (Fingerstick) 129 mg/dL (70-99) 38 mg/dL (70-99) 57 mg/dL (70-99) 62 mg/dL (70-99) Test 12/02/21 17:49 12/02/21 18:50 12/02/21 19:43 12/02/21 23:47 Glucose (Fingerstick) 51 mg/dL (70-99) 203 mg/dL (70-99) 215 mg/dL (70-99) 281 mg/dL (70-99) Test 12/03/21 07:45 Glucose (Fingerstick) 154 mg/dL (70-99) Micro Objective Assessment 1. Fever from sepsis and gram-negative bacteremia. 2. PSAE bacteremia.Source GI or 3. Leukocytosis and lactic acidosis. 4. Urinary tract infection.UC C glabrata 5. 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 6. Diabetes mellitus. 7. Nausea, vomiting, confusion.Improving 8. COVID-19 positive at nursing facility. Rapid COVID and COVID PCR neg here 9. Depression, Alzheimer's, Parkinson's. 10. Congestive heart failure. 11. Anxiety. 12 Anemia. 13. Generalized debility. 14. Muscle atrophy. 15 Small right heel ulcer. 16. Peripheral vascular disease. 17 shelter resident. Plan Plan of Care Cont daptomycin and meropenem.Monitor CK on 11/28 191 Off load, Continue supportive care. Maintain aspiration precaution. Change gandhi if not done already CT A/P reviewed D/W RN Okay to go to rehab d/c ok on iv dapto and meropenem f/u with us in 2 wks JOSE SANZ MD Dec 03, 2021 08:22
--- NOTE | 2021-12-03 08:40 | PN ---
DATE: 12/02/2021 LOCATION: He is in room 562. SUBJECTIVE: This 76-year-old male hospitalized with pseudomonas bacteremia and sepsis. He remains ill, although has improved mentally and sugars have improved. OBJECTIVE: VITAL SIGNS: Stable. He has been afebrile. GENERAL: He is awake, alert. CHEST: Clear. HEART: Regular. ABDOMEN: Benign. EXTREMITIES: Legs remain dressed. ASSESSMENT: 1. Pseudomonas sepsis and bacteremia. 2. Osteomyelitis, left heel. 3. Diabetes. 4. General debility. PLAN: Follow ID's recommendations as far as ongoing IV antibiotic therapy. SHAYY DR: Santiago TID: [id number]
[2021-12-03] MEDS: LISINOPRIL 20 MG TABLET PO SCH (09:00)
[2021-12-03] MEDS: SENNOSIDES/DOCUSATE 8.6/50MG TABLET. PO SCH (09:00)
[2021-12-03] MEDS: ALPRAZolam 0.25 MG TABLET PO SCH ×2 (09:36→14:00)
[2021-12-03] MEDS: TIMOLOL 0.5% OPHTH SOLUTION 5ML BOTTLE. OU SCH (09:36)
[2021-12-03] MEDS: FERROUS SULFATE 325 MG TABLET. PO SCH (09:37)
[2021-12-03] MEDS: MULTIVITAMIN with MINERAL TABLET. PO SCH (09:37)
[2021-12-03] MEDS: LACTOBACILLUS RHAMNOSUS GG 1 CAPSULE. PO SCH (09:37)
[2021-12-03] MEDS: ASPIRIN ENTERIC COATED 81 MG TABLET.DR. PO SCH (09:37)
[2021-12-03] MEDS: GABAPENTIN 100 MG CAPSULE. PO SCH ×2 (09:38→14:00)
[2021-12-03] MEDS: CARBIDOPA/LEVODOPA CR 25/100MG TABLET.SA. PO SCH ×2 (09:39→14:00)
[2021-12-03] MEDS: CITALOPRAM 20 MG TABLET. PO SCH (09:39)
[2021-12-03] MEDS: CYANOCOBALAMIN (VITAMIN B-12) 1,000 MCG TABLET. PO SCH (09:40)
[2021-12-03] MEDS: BRIMONIDINE 0.2% OPHTH SOLUTION 5ML BOTTLE. OU SCH (09:40)
[2021-12-03] MEDS: INSULIN GLARGINE SYRINGE. SQ SCH (09:41)
[2021-12-03 11:00] VITALS: BP 116/30
[2021-12-03] MEDS: DAPTOmycin (GENERIC) IVPB 430 MG in IV NORMAL SALINE 50ML 50 ML IV SCH (11:24)
--- NOTE | 2021-12-03 13:44 | SNU/HH DC ---
DISCHARGE ORDERS DISCHARGE INFORMATION: DISCHARGE DATE: Dec 03, 2021 FINAL DIAGNOSIS Problems Medical Problems: (1) COVID-19 virus infection Status: Acute (2) Open wound of lower extremity Status: Acute (3) Severe sepsis Status: Acute CONDITION ON DISCHARGE: Stable CODE STATUS: Code Status: Full FDC: SNF STAY <30 DAYS: Yes HOSPICE: HOSPICE: No HOSPICE EVAL & TREAT: No LTAC: ADMIT TO LTAC: No POST DISCHARGE ORDERS: ACTIVITY ORDERS: Resume previous activity WEIGHT BEARING STATUS: As tolerated, Non weight bearing DIET AFTER DISCHARGE: ADA WOUND/INCISION CARE: Change dressing OTHER ORDERS: make sure to continue iv antibiotics as outlined b CHECKS AFTER DISCHARGE: CHECKS AFTER DISCHARGE: Check blood press - daily TREATMENT/EQUIPMENT ORDERS: ADAPTIVE EQUIPMENT NEEDED: Wheelchair Physical Therapy For: Evalulation/Treatment Occupational Therapy For: Evaluation/Treatment DISCHARGE MEDICATIONS: Home Meds Active Scripts Multivits,Ca,Minerals/Iron/Fa (THERA-M TABLET) 1 Each Tablet, 1 TAB PO DAILY for wounds for 90 Days, #90 TAB Prov:MODESTO WU MD 10/27/21 Reported Medications Polyethylene Glycol 3350 (POLYETHYLENE GLYCOL 3350) 2,500 Gm Powder, 17 GM PO DAILY PRN for cons, #255 GM 0 Refills 11/26/21 Magnesium Hydroxide (MILK OF MAGNESIA) 400 Mg/5 Ml Oral.susp, 30 ML PO DAILY for constipation, MISC 11/26/21 Lisinopril (LISINOPRIL) 20 Mg Tablet, 1 TAB PO DAILY for HTN, #30 TAB 5 Refills HOLD for SBP <110 11/26/21 Na Phos,M-B/Na Phos,Di-Ba (FLEET ENEMA) 133 Ml Enema, 133 ML RC DAILY PRN for CONSTIPATION, EACH 11/26/21 Bisacodyl (DULCOLAX) 10 Mg Supp.rect, 1 SUPP RC DAILY PRN for CONSTIPATION for 10 Days, #10 SUPP 0 Refills 11/26/21 Atorvastatin Calcium (ATORVASTATIN CALCIUM) 20 Mg Tablet, 20 MG PO HS for FOR CHOLESTEROL, #30 TAB 0 Refills 11/26/21 Hypromellose (ISOPTO TEARS) 15 Ml Drops, 1 DROP OU Q6HRS for dry eyes, DROP 1 gtt to each eye 11/26/21 Amlodipine Besylate (AMLODIPINE BESYLATE) 2.5 Mg Tablet, 2.5 MG PO DAILY for HTN, TAB 11/25/21 Insulin Lispro (HUMALOG) 100 Unit/1 Ml Vial, 5 UNIT SQ TIDAC for diabetes, EACH 11/05/21 Colloidal Oatmeal (Eucerin Eczema Relief) 226 Gm Cream..g., 1 AYANA TP BID for dry skin for 30 Days, #226 GM 0 Refills 11/05/21 Mirtazapine (MIRTAZAPINE) 30 Mg Tablet, 1 TAB PO QHS for depression, #30 TAB 1 Refill 07/16/21 Insulin Glargine,Hum.rec.anlog (LANTUS SOLOSTAR) 100 Unit/1 Ml Insuln.pen, 14 UNIT SQ DAILYWBKFT for DM, #15 ML 3 Refills 07/16/21 Donepezil Hcl (DONEPEZIL HCL) 10 Mg Tablet, 10 MG PO HS for dementia, TAB 07/16/21 Brimonidine Tartrate/Timolol (COMBIGAN EYE DROPS) 5 Ml Drops, 1 DRP OU BID for glaucoma, DROP 07/16/21 Aspirin (LOW DOSE ASPIRIN EC) 81 Mg Tablet.dr, 1 TAB PO DAILY for heart health, #30 TAB 3 Refills 07/16/21 Alprazolam (ALPRAZOLAM) 0.25 Mg Tablet, 0.125 TAB PO TID for anxiety, #90 TAB 07/16/21 Timolol Maleate 0.5% (TIMOPTIC 0.5%) 10 Ml Drops, 1 DROP EACHEYE BID for glaucoma, #10 ML 3 Refills 05/06/19 Ondansetron Hcl (ZOFRAN) 4 Mg Tablet, 1 TAB PO Q8HRS PRN for NAUSEA/VOMITING, #20 TAB 11/20/18 Sennosides/Docusate Sodium (SENNA S TABLET) 1 Each Tablet, 1 EACH PO BID for constipation, TAB 11/20/18 Levothyroxine Sodium (LEVOTHYROXINE SODIUM) 75 Mcg Tablet, 1 TAB PO DAILY07 for hypothyroid, #30 TAB 5 Refills 11/20/18 Gabapentin (GABAPENTIN ) 100 Mg Capsule, 100 MG PO TID for NEUROGENIC PAIN, CAP 11/20/18 Ferrous Sulfate (FERROUS SULFATE) 325 Mg Tablet, 1 TAB PO BID for anemia, #60 TAB 3 Refills 11/20/18 Cyanocobalamin (Vitamin B-12) (VITAMIN B-12) 1,000 Mcg Tablet, 500 MCG PO DAILY for supplement, TAB 11/20/18 Petrolatum,White (AQUAPHOR) 99 Gm Oint...g., 99 GM TP BID for dry feet, MISC 11/20/18 Latanoprost (LATANOPROST) 2.5 Ml Drops, 1 DROP EACHEYE QHS for glaucoma, #7.5 ML 3 Refills 03/17/17 Carbidopa/Levodopa (SINEMET CR 25-100 TABLET) 1 Each Tablet.er, 1 TAB PO TID, TAB 03/18/16 Citalopram Hydrobromide (CITALOPRAM HBR) 20 Mg Tablet, 1 TAB PO DAILY, #30 TAB 5 Refills 03/18/16 Acetaminophen (TYLENOL) 325 Mg Tablet, 2 TAB PO PRN Q4HRS PRN for PAIN, #30 TAB 03/18/16 MODESTO WU MD Dec 03, 2021 13:44
[2021-12-03] MEDS ORDERED: ASCORBIC ACID 500 MG TABLET PO SCH (14:00)
--- NOTE | 2021-12-03 15:46 | NUR ---
Made 3 attempts to give report to Dary. Patient and belongings with patient. Family updated by Angélica discharge unit manager. Patient cleaned up, telemonitor off. Picc line and gandhi in place.
--- NOTE | 2021-12-03 16:08 | PN ---
DATE: 12/03/2021 LOCATION: He is in room 562. SUBJECTIVE: This 76-year-old male remains hospitalized with Pseudomonas bacteremia and sepsis. He was on antibiotics at skilled level prior to admission with daptomycin, ceftriaxone and Flagyl for left heel osteomyelitis. He does awaken this morning. He has had a couple of low-grade fevers in the last 12 hours of 99.6 axillary and sugars have actually increased, worrisome for not still good control of his infectious process. The patient also received some fluids yesterday for hypotension. OBJECTIVE: VITAL SIGNS: Stable. Again, temperatures as above. GENERAL: He is awake and alert. CHEST: Clear. HEART: Regular. ABDOMEN: Benign. EXTREMITIES: Legs are dressed. ASSESSMENT: 1. Pseudomonas sepsis with bacteremia. 2. Osteomyelitis, left heel. 3. Diabetes. 4. General debility. 5. Hypotension. PLAN: Per ID. I see yesterday that they had improved him to leave once again. If he does go back to the [facility] today on antibiotics and is readmitted, I am going to seriously push towards amputation of both legs with these wounds. KISHAN/BALWINDER HOLDEN: Santiago TID: [id number]
== END 2021-12-03 15:45 | DRG 871 ==
LOC: ER 08:25 → ED HOLD 11:30 → 5 SOUTH 19:11
PROVIDERS: ADMIT Family Medicine; ATTEND Family Medicine
PROC: 02HV33Z Insertion of Infusion Device into Superior Vena Cava, Percutaneous Approach (ICD-10-PCS; principal; 2021-11-25)
DX: A41.52 Sepsis due to Pseudomonas (principal); E43 Unspecified severe protein-calorie malnutrition; L97.419 Non-pressure chronic ulcer of right heel and midfoot with unspecified severity; L97.429 Non-pressure chronic ulcer of left heel and midfoot with unspecified severity; N39.0 Urinary tract infection, site not specified; M86.9 Osteomyelitis, unspecified; Z68.25 Body mass index [BMI] 25.0-25.9, adult; B96.89 Other specified bacterial agents as the cause of diseases classified elsewhere; D64.9 Anemia, unspecified; E10.51 Type 1 diabetes mellitus with diabetic peripheral angiopathy without gangrene; E10.621 Type 1 diabetes mellitus with foot ulcer; F02.80 Dementia in other diseases classified elsewhere, unspecified severity, without behavioral disturbance, psychotic disturbance, mood disturbance, and anxiety; F32.A Depression, unspecified; F41.9 Anxiety disorder, unspecified; G20 Parkinson's disease; G30.9 Alzheimer's disease, unspecified; I11.0 Hypertensive heart disease with heart failure; I50.9 Heart failure, unspecified; R65.20 Severe sepsis without septic shock; Z66 Do not resuscitate; E10.69 Type 1 diabetes mellitus with other specified complication; E21.3 Hyperparathyroidism, unspecified; K21.9 Gastro-esophageal reflux disease without esophagitis; L89.159 Pressure ulcer of sacral region, unspecified stage; Z20.822 Contact with and (suspected) exposure to COVID-19; M62.50 Muscle wasting and atrophy, not elsewhere classified, unspecified site; Z79.4 Long term (current) use of insulin; Z86.73 Personal history of transient ischemic attack (TIA), and cerebral infarction without residual deficits; Z74.01 Bed confinement status; Z88.0 Allergy status to penicillin
CPT/HCPCS: 36415; 36600; 71045; 74176; 80048; 80053; 81001; 82550; 82805; 82962; 83605; 83735; 83880; 84484; 85007; 85025; 87015; 87040; 87077; 87086; 87106; 87186; 87426; 87428; 93005; 93971; 96361; 96365; 96366; 96368; J0878; J1815; J2185; J2248; J3370; J3475; J7030; J7040; J7060; U0003; 99285-25; G0378